=== PATIENT | female | born 1955 | race Hispanic/Latino ===

== ENCOUNTER 2018-05-02 13:57 | Inpatient (IN) | payer MEDICARE, BC ==
[2018-05-02 14:02] VITALS: BMI 19.8
[2018-05-02 14:56] LABS: ALB/GLOB RATIO 1.5 (1.1-1.8); ALBUMIN 4.2 g/dL (3.0-4.8); ALT/SGPT 24 U/L (7-56); AST/SGOT 27 U/L (14-36); BLOOD UREA NITROGEN 23 mg/dL (7-21); CALCIUM 9.4 mg/dL (8.4-10.5); GFR NON-AFRICAN AMERICAN > 60
[2018-05-02 14:57] LABS: ACETAMINOPHEN < 10.0 ug/ml (10.0-20.0); SALICYLATE < 1 mg/dL (2.0-20.0)
[2018-05-02 15:14] LABS: BASO # 0.04 K/mm3 (0.0-2.0); BASO % 0.6 % (0.0-3.0); EOS # 0.1 (0.0-0.7); EOS % 0.8 % (1.5-5.0); GRAN # 4.22 (1.4-6.5); GRAN % 65.9 % (50.0-68.0); HEMOGLOBIN 13.9 g/dL (12.0-16.0); LYMPH # 1.7 (1.2-3.4); LYMPH % 27.1 % (22.0-35.0); MEAN CELL VOLUME 89.6 fl (80.0-105.0); MEAN CORPUSCULAR HEMOGLOBIN 30.1 pg (25.0-35.0); MEAN CORPUSCULAR HGB CONC 33.6 g/dl (31.0-37.0); MEAN PLATELET VOLUME 9.1 fl (7.0-11.0); MONO # 0.4 (0.1-0.6); MONO % 5.6 % (1.0-6.0); RBC 4.62 10^6/uL (3.5-6.1); RED CELL DISTRIBUTION WIDTH 12.5 % (11.5-14.5); WHITE BLOOD COUNT 6.4 10^3/uL (4.5-11.0)
[2018-05-02 16:14] LABS: URINE BILIRUBIN NEGATIVE (NEGATIVE); URINE BLOOD TRACE-INTACT (NEGATIVE); URINE GLUCOSE (UA) NEGATIVE (NEGATIVE); URINE LEUKOCYTE ESTERASE NEGATIVE Leu/uL (NEGATIVE); URINE PROTEIN NEGATIVE mg/dL (<30 mg/dL); URINE UROBILINOGEN 0.2 E.U./dL (<1 E.U./dL)
[2018-05-02 16:15] LABS: URINE APPEARANCE SLIGHT-CLOUDY (CLEAR); URINE COLOR YELLOW (YELLOW)
[2018-05-02 16:31] LABS: BARBITURATES, UR NEGATIVE (NEGATIVE); BENZODIAZEPINES, UR NEGATIVE (NEGATIVE); OPIATES, UR NEGATIVE (NEGATIVE); PHENCYCLIDINE, UR NEGATIVE (NEGATIVE)
[2018-05-02 16:41] LABS: URINE AMORPHOUS SEDIMENT SMALL /hpf
[2018-05-02 17:11] VITALS: O2SAT 97
--- NOTE | 2018-05-02 18:05 | RAD ---
Date of service: 05/02/2018 HISTORY: psych eval COMPARISON: No prior. FINDINGS: LUNGS: Hyperinflated lungs. No active pulmonary disease. PLEURA: Flattened diaphragms. No significant pleural effusion identified, no pneumothorax apparent. CARDIOVASCULAR: Aortic atherosclerotic calcifications. Cardiomediastinal silhouette at the upper limits of normal in size. OSSEOUS STRUCTURES: Final degenerative changes. VISUALIZED UPPER ABDOMEN: Normal. OTHER FINDINGS: None. IMPRESSION: No active disease. COPD configuration.
--- NOTE | 2018-05-02 18:19 | ED PDOC ---
Arrival/HPI - General Chief Complaint: Psychiatric Evaluation Time Seen by Provider: 05/02/18 14:01 Historian: Patient - History of Present Illness Narrative History of Present Illness (Text): 05/02/18 18:17 A 63 year old female, whose past medical history includes depression, sent by a psychiatrist to the emergency department for evaluation of depression for 1-2 months. Patient states she is compliant with her medications. Patient denies any SI/HI, or any other physical/symptomatic complaints at this time. PMD: Dr. Franks Past Medical History - Provider Review Nursing Documentation Reviewed: Yes - Infectious Disease Hx of Infectious Diseases: None - Reproductive Menopause: Yes - Cardiac Hx Cardiac Disorders: No - Pulmonary Hx Respiratory Disorders: No - Psychiatric Hx Depression: Yes Hx Substance Use: No - Anesthesia Hx Anesthesia Reactions: No Family/Social History - Physician Review Nursing Documentation Reviewed: Yes Family/Social History: No Known Family HX Smoking Status: Unknown If Ever Smoked Hx Alcohol Use: No Hx Substance Use: No Allergies/Home Meds Allergies/Adverse Reactions: Allergies No Known Allergies Allergy (Verified 05/02/18 14:24) Home Medications: Home Meds Medication Instructions Recorded Confirmed PARoxetine CR [Paxil CR] 30 mg PO DAILY 05/02/18 05/02/18 Venlafaxine [Effexor-XR] 75 mg PO 05/02/18 clonazePAM [clonAZEPAM] 0.25 mg PO PRN PRN 05/02/18 05/02/18 Review of Systems - Physician Review All systems were reviewed & negative as marked: Yes - Review of Systems Constitutional: absent: Fevers Psychiatric: Depression. absent: Suicidal Ideation (and no homicidal ideation) Physical Exam Vital Signs Reviewed: Yes Vital Signs Temp Pulse Resp BP Pulse Ox 05/02/18 17:10 97.9 F 106 H 18 158/86 H 97 05/02/18 14:00 98.0 F 118 H 18 125/63 99 Temperature: Afebrile Blood Pressure: Normal Pulse: Tachycardic Respiratory Rate: Normal Appearance: Positive for: Well-Appearing, Non-Toxic, Comfortable Pain Distress: None Mental Status: Positive for: Alert and Oriented X 3 - Systems Exam Head: Present: Atraumatic, Normocephalic Pupils: Present: PERRL Extroacular Muscles: Present: EOMI Conjunctiva: Present: Normal Mouth: Present: Moist Mucous Membranes Neck: Present: Normal Range of Motion Respiratory/Chest: Present: Clear to Auscultation, Good Air Exchange. No: Respiratory Distress, Accessory Muscle Use Cardiovascular: Present: Normal S1, S2, Tachycardic. No: Murmurs Abdomen: No: Tenderness, Distention, Peritoneal Signs Back: Present: Normal Inspection Upper Extremity: Present: Normal Inspection. No: Cyanosis, Edema Lower Extremity: Present: Normal Inspection. No: Edema Neurological: Present: GCS=15, CN II-XII Intact, Speech Normal Skin: Present: Warm, Dry, Normal Color. No: Rashes Psychiatric: Present: Alert, Oriented x 3, Normal Insight, Normal Concentration Medical Decision Making ED Course and Treatment: 05/02/18 18:17 Impression: 63 year old female with depression. Plan: -- EKG -- Chest X-ray -- Labs -- Urinalysis -- Reassess and disposition Progress Notes: EKG: Ordered, reviewed, and independently interpreted the EKG. Rate : 106 BPM Rhythm : Sinus tachycardia. Interpretation : No ST-segment elevations or depressions, no T-wave inversions, normal intervals. Comparison : No previous EKG for comparison. 05/02/2018 18:02 Chest X-ray IMPRESSION: No active disease. COPD configuration. Dictator: Amador Smalls MD 05/02/18 18:18 Patient has been medically cleared and admitted under Dr. Viera. - Lab Interpretations Lab Results: Total Bilirubin 0.3 mg/dL (0.2-1.3) 05/02/18 14:30 AST 27 U/L (14-36) 05/02/18 14:30 ALT 24 U/L (7-56) 05/02/18 14:30 Alkaline Phosphatase 78 U/L (38-126) 05/02/18 14:30 Total Protein 7.1 g/dL (5.8-8.3) 05/02/18 14:30 Albumin 4.2 g/dL (3.0-4.8) 05/02/18 14:30 Globulin 2.9 gm/dL 05/02/18 14:30 Albumin/Globulin Ratio 1.5 (1.1-1.8) 05/02/18 14:30 Urine Color Yellow (YELLOW) 05/02/18 16:00 Urine Appearance Slight-cloudy (CLEAR) 05/02/18 16:00 Urine pH 6.0 (4.7-8.0) 05/02/18 16:00 Ur Specific [place] >= 1.030 (1.005-1.035) 05/02/18 16:00 Urine Protein Negative mg/dL (<30 mg/dL) 05/02/18 16:00 Urine Glucose (UA) Negative mg/dL (NEGATIVE) 05/02/18 16:00 Urine Ketones Negative mg/dL (NEGATIVE) 05/02/18 16:00 Urine Blood Trace-intact (NEGATIVE) H 05/02/18 16:00 Urine Nitrate Negative (NEGATIVE) 05/02/18 16:00 Urine Bilirubin Negative (NEGATIVE) 05/02/18 16:00 Urine Urobilinogen 0.2 E.U./dL (<1 E.U./dL) 05/02/18 16:00 Ur Leukocyte Esterase Negative Janette/uL (NEGATIVE) 05/02/18 16:00 Urine RBC 5 - 10 /hpf (0-2) H 05/02/18 16:00 Urine WBC 2 - 5 /hpf (0-6) 05/02/18 16:00 Ur Epithelial Cells 6 - 8 /hpf (0-5) H 05/02/18 16:00 Amorphous Sediment Small /hpf (NONE) 05/02/18 16:00 - Scribe Statement The provider has reviewed the documentation as recorded by the Brenda Baumann Provider Scribe Attestation: All medical record entries made by the Scribe were at my direction and personally dictated by me. I have reviewed the chart and agree that the record accurately reflects my personal performance of the history, physical exam, medical decision making, and the department course for this patient. I have also personally directed, reviewed, and agree with the discharge instructions and disposition. Disposition/Present on Arrival - Present on Arrival Any Indicators Present on Arrival: No History of DVT/PE: No History of Uncontrolled Diabetes: No Urinary Catheter: No History of Decub. Ulcer: No History Surgical Site Infection Following: None - Disposition Have Diagnosis and Disposition been Completed?: Yes Diagnosis: MDD (major depressive disorder) Disposition: HOSPITALIZED Disposition Time: 16:00 Condition: STABLE
[2018-05-02] MEDS ORDERED: Alum-Mag Hydrox-Simethicone Susp (30 mL) PO PRN (20:44)
[2018-05-02] MEDS ORDERED: Magnesium Hydroxide Susp 30 ml UD PO PRN (20:44)
--- NOTE | 2018-05-02 21:01 | PCM.BM ---
<Dominick Conn - Last Filed: 05/02/18 20:58> Treatment Plan Problems - Problems identified on initial assessmt suicide Date Initiated: 05/02/18 Time Initiated: 21:00 Assessment reference: NA Status: Active Ineffective coping Date Initiated: 05/02/18 Time Initiated: 21:00 Assessment reference: NA Status: Active Self care deficit Date Initiated: 05/02/18 Time Initiated: 21:00 Assessment reference: NA Status: Active Treatment assets and liabiliti Patient Assests: cooperative, educated, insightful, motivated, good support system, financial stabiity, cognitively intact Patient Liabilities: live alone - Milieu Protocol Maintain good personal hygiene: daily Encourage regular showers, daily Remind patient to perform daily oral care Maintain personal safety: daily Educate patient to report safety concerns to staff, daily Monitor environment for contraband/sharps Medication safety: Monitor for expected outcome, potential side effects: daily, Assess barriers to learning: daily, Assess readiness for medication education: daily Discharge/Continuing Care - Education Needs Education Needs: Patient Medication, Patient Diagnosis/Disease Process, Patient Coping Skills, Patient Activities of Daily Living, Patient Aftercare Safety Plan - Discharge Discharge Criteria: Free of Suicidal thoughts, Normal sleep pattern, Ability to care for self Discharge to:: Home <Marisol Viera - Last Filed: 05/03/18 12:50> - Diagnosis (1) MDD (major depressive disorder) Status: Acute Interventions: 05/03/18 12:50 Psychoeducation Psychopharmacology/adjustment of medications as needed/ monitoring possible side effects Evaluate pt on daily basis Compliance with medications and follow up appointments Suicide and homicide risk assessment and prevention Relapse prevention Reduction of symptoms Improve functional status Family involvement As outpatient: cognitive behavioral therapy Possible ECT <Kya Knight - Last Filed: 05/03/18 15:56>
--- NOTE | 2018-05-03 00:36 | CARD ---
APPROVED REPORT Date of service: 05/02/2018 EKG Measurement Heart [id number] <Conclusion> Sinus tachycardia Intraventricular conduction delay of LBBB type Cannot exclude Anterior infarct, age undetermined CCR Abnormal ECG
[2018-05-03 08:11] LABS: GLUCOSE,FASTING 117 mg/dL (65-110); HDL CHOLESTEROL 89 mg/dL (29-60)
[2018-05-03 08:21] LABS: LDL CHOLESTEROL 123 mg/dL (0-129)
--- NOTE | 2018-05-03 12:50 | PCM.PSYCH ---
Initial Psychiatric Evaluation - Initial Psychiatric Evaluation Type of Admission: Voluntary Legal Status: Capacity (Patient has capacity to sign consent for treatment) Chief Complaint (in patient's own words): "I have a lot of guilt, I have a lot of regrets about my mistakes, I spoke to my sister, she invited me to stay with her, she is the one who suggested me to come to the hospital and look for help, couple of nights ago I put a knife on my wrist but I didn't put pressure on it..., I am afraid to go to hell" Patient's Reaction to Hospitalization: Patient was admitted to the psychiatric inpatient unit for evaluation and stabilization of depressive symptoms, inability to function, no energy, patient was losing weight, patient had intrusive thoughts, patient also held a knife against her left wrist couple of nights ago. History of Present Illness and Precipitating Events: shortly pt is a 63 year old female, with a history of treatment resistant depression, anxiety, two previous psychiatric admissions 2018, currently under care of [facility] and sees at [facility], pt retired, lives alone, pt came to the hospital accompanied by her sister, as per ED report pt was referred for admission (as per pt for ECT treatment) by her psychiatrist, pt was admitted for evaluation and stabilization of depressive symptoms, inability to function, possible suicidal ideation, "I put a knife on my wrist but I didn't put pressure on it..., I am afraid to go to hell". As per ED report pt was compliant with medications and follow up appointments, pt requires further evaluation and stabilization and meds adjustment and possible ECT treatment. Patient was sent home today, patient presented with acceptable personal hygiene, seems to be careless about her appearance, has long, uncombed, gonzalez hair, no makeup on, wearing baggy gonzalez color clothing, was pleasant, not forthcoming with information, good ADLs. Patient reported that she suffers from depression and "a lot of guilt", patient reported that she has a lot of "regrets" in her life, patient reported that she was feeling more depressed, low energy, feeling guilty that she is not productive from her life, patient reported that she has anhedonia, patient reported that she tried her best to go to the gym and being productive but she was unsuccessful. Patient also reported that she has some "intrusive thoughts" patient reported that she constantly thinking about her mistakes in her life, patient reported that she retired in 2015 and she used to work as high school counselor patient reported that in 2018 she made a "bad choice" to move to [place] in order to help her alcoholic brother who was homeless at that time. Patient reported "my plan was to help him and I wanted to live together in order for him to start feeling better", patient reported that "plan did not work out, at present moment I am staying in an apartment what I do not like, my brother is in [employer], it was a huge mistake". Patient reported all the above gives her "ruminations and intrusive thoughts, I keep playing it in my head over and over again". Patient reported that she has fair appetite but she lost some weight and she is not sure. Patient reported that her sleep is "fine". Patient denied hearing voices, denied seeing things, denied paranoid ideation patient does not appear to be psychotic. Patient denied that she has any intent or plan to kill herself but when this loan underwriter asked about her statements in the emergency room about holding a knife against her left wrist patient reluctantly said that on SundayApril 28 she hold denied against her wrist but "I did not do anything, I am afraid that I will go to [facility], I am Mandaen, if this is a sin, I am afraid that I will be punished.", pt reported that she called her sister and she invited patient to stay with her for a couple of days, patient reported that her sister brought her to the hospital. In ED pt made statement "Patient believes that her medications are not working and that the suicidal thoughts are continuing." Patient denied using drugs, denied smoking cigarettes, denied alcohol consumption. Patient denied history of manic episodes, denies history of abuse. Past psychiatric history: Patient reported that she was on multiple psychotropic medications which were not not effective, patient reported that she was on Prozac, Paxil, Zoloft, Effexor, patient outpatient provider "suggested me to have ECT but I am not sure". Patient reported that she had 2 previous psychiatric admissions in 2018, one at [facility] and the other one at [facility], early spring last year initially patient was seen her psychiatrist every week, at present moment patient sees her psychiatrist every 2 weeks. Patient denied history of suicidal attempts. pt would like to be referred to a day treatment program. Patient reported that she feels her medications at [facility] here in [place], this loan underwriter called and confirmed medication list. [phone] pt was on the following medications paxil 20mg and 10mg prescrcib[address] by Dr.Savita Downey filled 04/06/19, pt said that she was on titration of that medication venlafaxine prescribed by filled 04/12/18, pt said that she was in the process of weaning off Medical history: Patient denied any medical history about patient cholesterol level is elevated as well as urine was positive for blood, will call for medical consultation. Family history: Patient reported that 2 of her brothers suffers from alcohol addiction, younger brother suffers from major depressive disorder and she is on Zoloft. Denies family history of suicidal attempts. collaterals from sister: Eloina Beebe Patient was referred to the hospital by the patient's psychiatrist. According to her sister, the patient is compliant with her medications and her outpatient treatment. As per RN report pt said that pt said that she was not able to take care of self. 05/02/18 14:30 05/02/18 14:30 Lab Results 05/03/18 07:45: Fasting Glucose 117 H, Triglycerides 75, Cholesterol 255 H, LDL Cholesterol Direct 123, HDL Cholesterol 89 H 05/02/18 19:00: TSH 3rd Generation 1.59 05/02/18 16:00: Urine Opiates Screen Negative, Urine Methadone Screen Negative, Ur Barbiturates Screen Negative, Ur Phencyclidine Scrn Negative, Ur Amphetamines Screen Negative, U Benzodiazepines Scrn Negative, U Oth Cocaine Metabols Negative, U Cannabinoids Screen Negative 05/02/18 16:00: Urine Color Yellow, Urine Appearance Slight-cloudy, Urine pH 6.0, Ur Specific [place] >= 1.030, Urine Protein Negative, Urine Glucose (UA) Negative, Urine Ketones Negative, Urine Blood Trace-intact H, Urine Nitrate Negative, Urine Bilirubin Negative, Urine Urobilinogen 0.2, Ur Leukocyte Esterase Negative, Urine RBC 5 - 10 H, Urine WBC 2 - 5, Ur Epithelial Cells 6 - 8 H, Amorphous Sediment Small 05/02/18 14:30: Alcohol, Quantitative < 10 05/02/18 14:30: Salicylates < 1 L, Acetaminophen < 10.0 L 05/02/18 14:30: Sodium 139, Potassium 4.0, Chloride 104, Carbon Dioxide 26, Anion Gap 12, BUN 23 H, Creatinine 0.7, Est GFR ( Amer) > 60, Est GFR (Non-Af Amer) > 60, Random Glucose 114 H, Calcium 9.4, Total Bilirubin 0.3, AST 27, ALT 24, Alkaline Phosphatase 78, Total Protein 7.1, Albumin 4.2, Globulin 2.9, Albumin/Globulin Ratio 1.5 05/02/18 14:30: WBC 6.4, RBC 4.62, Hgb 13.9, Hct 41.4, MCV 89.6, MCH 30.1, MCHC 33.6, RDW 12.5, Plt Count 308, MPV 9.1, Gran % 65.9, Lymph % (Auto) 27.1, Pratt % (Auto) 5.6, Eos % (Auto) 0.8 L, Baso % (Auto) 0.6, Gran # 4.22, Lymph # (Auto) 1.7, Pratt # (Auto) 0.4, Eos # (Auto) 0.1, Baso # (Auto) 0.04 Vital Signs Temp Pulse Pulse Resp BP Pulse Ox 05/03/18 07:27 98.7 F 88 20 123/65 05/02/18 22:06 127/71 05/02/18 21:34 90 18 05/02/18 17:10 97.9 F 106 H 18 158/86 H 97 05/02/18 14:00 98.0 F 118 H 18 125/63 99 The patient failed the outpatient lower level of care: Yes Current Medications: Active Medications Generic Name Dose Route Start Last Admin Trade Name Freq PRN Reason Stop Dose Admin Acetaminophen 650 mg 05/02/18 20:44 Tylenol 325mg Tab PO Q6H PRN Fever >100.4 F Al Hydrox/Mg Hydrox/Simethicone 30 ml 05/02/18 20:44 Maalox Plus 30 Ml PO DAILY PRN Upset Stomach Clonazepam 0.25 mg 05/02/18 20:45 Klonopin PO BID PRN Anxiety Protocol Magnesium Hydroxide 30 ml 05/02/18 20:44 Milk Of Magnesia PO DAILY PRN Constipation Paroxetine HCl 30 mg 05/03/18 08:00 Paxil PO DAILY MELODY Present on Admission - Present on Admission Any Indicators Present on Admission: No Review of Systems - Review of Systems Systems not reviewed;Unavailable: Acuity of Condition - Constitutional Constitutional: As Per HPI - EENT Eyes: As Per HPI Ears: As Per HPI Nose/Mouth/Throat: As Per HPI - Breasts Breasts: As Per HPI - Cardiovascular Cardiovascular: As Per HPI - Respiratory Respiratory: As Per HPI - Gastrointestinal Gastrointestinal: As Per HPI - Genitourinary Genitourinary: As Per HPI - Reproductive: Female Reproductive:Female: As Per HPI - Menstruation Menstruation: As Per HPI - Musculoskeletal Musculoskeletal: As Per HPI - Integumentary Integumentary: As Per HPI - Neurological Neurological: As Per HPI - Psychiatric Psychiatric: As Per HPI - Endocrine Endocrine: As Per HPI - Hematologic/Lymphatic Hematologic: As Per HPI Past Patient History - Past Psychiatric History Previous Treatment History: Inpatient Prior Professional Help: see HPI Prior Psychiatric Treatment: see HPI At what hospital: see HPI Duration: see HPI Nature of Treatment: see HPI Explanation of prior treatment: see HPI - PSYCHIATRIC Hx Depression: Yes Hx Substance Use: No - Infectious Disease Hx of Infectious Diseases: None - CARDIAC Hx Cardiac Disorders: No - PULMONARY Hx Respiratory Disorders: No - ANESTHESIA Hx Anesthesia Reactions: No - Medical/Surgical History Reviewed & confirmed: by ks Meds Allergies/Adverse Reactions: Allergies Allergy/AdvReac Type Severity Reaction Status Date / Time No Known Allergies Allergy Verified 05/02/18 14:24 Mental Status Examination - Personal Presentation Personal Presentation: Looks stated age - Affect Affect: Constricted, Flat - Motor Activity Motor Activity: Calm - Reliability in Providing Information Reliability in Providing Information: Fair - Speech Speech: Organized - Mood Mood: Depressed, Anxious - Obsessions/Compulsions Obsessions: None Compulsions: None - Cognitive Functions Orientation: Person, Place, Situation, Time Sensorium: Alert Attention/Concentration: Easily distracted Abstract Thinking: As evidence by literal perception of proverbs Estimate of Intelligence: Average Judgement: Intact, as evidence by: Insight regarding need for hospitalization - Risk Risk: Self-mutilation, Diminished functioning - Strength & Assets Inventory Strength & Assets Inventory: Intelligence, Family support, Spiritual affiliations, Cooperative, Other (good physical health, no psychosis) - Limitations Limitations: Other (pt was not forthcoming with info, lives alone) Psychiatric Physical Exam - Physical Exam Reviewed and confirmed: Emergency Department Physical Exam Results - Vital Signs Recent Vital Signs: Last Vital Signs Temp 98.7 F 05/03/18 07:27 Pulse 88 05/03/18 07:27 Resp 20 05/03/18 07:27 BP 123/65 05/03/18 07:27 Pulse Ox 97 05/02/18 17:10 - Labs Result Diagrams: 05/02/18 14:30 05/02/18 14:30 Labs: Laboratory Results - last 24 hr 05/02/18 05/02/18 05/02/18 14:30 14:30 14:30 WBC 6.4 RBC 4.62 Hgb 13.9 Hct 41.4 MCV 89.6 MCH 30.1 MCHC 33.6 RDW 12.5 Plt Count 308 MPV 9.1 Gran % 65.9 Lymph % (Auto) 27.1 Pratt % (Auto) 5.6 Eos % (Auto) 0.8 L Baso % (Auto) 0.6 Gran # 4.22 Lymph # (Auto) 1.7 Pratt # (Auto) 0.4 Eos # (Auto) 0.1 Baso # (Auto) 0.04 Sodium 139 Potassium 4.0 Chloride 104 Carbon Dioxide 26 Anion Gap 12 BUN 23 H Creatinine 0.7 Est GFR ( Amer) > 60 Est GFR (Non-Af Amer) > 60 Random Glucose 114 H Fasting Glucose Calcium 9.4 Total Bilirubin 0.3 AST 27 ALT 24 Alkaline Phosphatase 78 Total Protein 7.1 Albumin 4.2 Globulin 2.9 Albumin/Globulin Ratio 1.5 Triglycerides Cholesterol LDL Cholesterol Direct HDL Cholesterol TSH 3rd Generation Urine Color Urine Appearance Urine pH Ur Specific [place] Urine Protein Urine Glucose (UA) Urine Ketones Urine Blood Urine Nitrate Urine Bilirubin Urine Urobilinogen Ur Leukocyte Esterase Urine RBC Urine WBC Ur Epithelial Cells Amorphous Sediment Salicylates < 1 L Urine Opiates Screen Urine Methadone Screen Acetaminophen < 10.0 L Ur Barbiturates Screen Ur Phencyclidine Scrn Ur Amphetamines Screen U Benzodiazepines Scrn U Oth Cocaine Metabols U Cannabinoids Screen Alcohol, Quantitative 05/02/18 05/02/18 05/02/18 14:30 16:00 16:00 WBC RBC Hgb Hct MCV MCH MCHC RDW Plt Count MPV Gran % Lymph % (Auto) Pratt % (Auto) Eos % (Auto) Baso % (Auto) Gran # Lymph # (Auto) Pratt # (Auto) Eos # (Auto) Baso # (Auto) Sodium Potassium Chloride Carbon Dioxide Anion Gap BUN Creatinine Est GFR ( Amer) Est GFR (Non-Af Amer) Random Glucose Fasting Glucose Calcium Total Bilirubin AST ALT Alkaline Phosphatase Total Protein Albumin Globulin Albumin/Globulin Ratio Triglycerides Cholesterol LDL Cholesterol Direct HDL Cholesterol TSH 3rd Generation Urine Color Yellow Urine Appearance Slight-cloudy Urine pH 6.0 Ur Specific [place] >= 1.030 Urine Protein Negative Urine Glucose (UA) Negative Urine Ketones Negative Urine Blood Trace-intact H Urine Nitrate Negative Urine Bilirubin Negative Urine Urobilinogen 0.2 Ur Leukocyte Esterase Negative Urine RBC 5 - 10 H Urine WBC 2 - 5 Ur Epithelial Cells 6 - 8 H Amorphous Sediment Small Salicylates Urine Opiates Screen Negative Urine Methadone Screen Negative Acetaminophen Ur Barbiturates Screen Negative Ur Phencyclidine Scrn Negative Ur Amphetamines Screen Negative U Benzodiazepines Scrn Negative U Oth Cocaine Metabols Negative U Cannabinoids Screen Negative Alcohol, Quantitative < 10 05/02/18 05/03/18 19:00 07:45 WBC RBC Hgb Hct MCV MCH MCHC RDW Plt Count MPV Gran % Lymph % (Auto) Pratt % (Auto) Eos % (Auto) Baso % (Auto) Gran # Lymph # (Auto) Pratt # (Auto) Eos # (Auto) Baso # (Auto) Sodium Potassium Chloride Carbon Dioxide Anion Gap BUN Creatinine Est GFR ( Amer) Est GFR (Non-Af Amer) Random Glucose Fasting Glucose 117 H Calcium Total Bilirubin AST ALT Alkaline Phosphatase Total Protein Albumin Globulin Albumin/Globulin Ratio Triglycerides 75 Cholesterol 255 H LDL Cholesterol Direct 123 HDL Cholesterol 89 H TSH 3rd Generation 1.59 Urine Color Urine Appearance Urine pH Ur Specific [place] Urine Protein Urine Glucose (UA) Urine Ketones Urine Blood Urine Nitrate Urine Bilirubin Urine Urobilinogen Ur Leukocyte Esterase Urine RBC Urine WBC Ur Epithelial Cells Amorphous Sediment Salicylates Urine Opiates Screen Urine Methadone Screen Acetaminophen Ur Barbiturates Screen Ur Phencyclidine Scrn Ur Amphetamines Screen U Benzodiazepines Scrn U Oth Cocaine Metabols U Cannabinoids Screen Alcohol, Quantitative - EKG Data EKG Interpreted by: ER Physician DSM Plan - DSM 5 DSM 5 Diagnosis: MDD, treatment resistant - Recommended/Plan of Treatment Treatment Recommendations and Plan of Treatment: Milieu/structure/supportive therapy medical consult, consultation for discharge plan and social issues Med management: meds confirmed by [facility] klonopin 0.25mg po bid for anxiety paxil will be continued, but pt reported to have UE shakes effexor was on tapering dose, will d/c now ECT treatment discussed Family involvement Follow up on labs Will monitor closely Pt was educated about risk/benefits and alternatives of medications, coping strategies (safety plan, suicide prevention), relapse prevention, importance of follow up with psychiatrist and therapist, stay away from drugs/alcohol/smoking Projected ELOS: 7days Prognosis: guarded Discharge Plan and Discharge Criteria: Pt will be not depressed or manic, will be more hopeful, will be not psychotic or anxious, will be tolerating medications well, will not have major side effects, will be able to function, will not pose threat to self or others. - Tobacco Cessation Tobacco Use Status for the last 30 days: Non User Tobacco Use Treatment Practical Counseling Provided: No Tobacco Use Treatment FDA-Approved Cessation Medication Provided: No - Alcohol or Substance Abuse Does the patient have an Alcohol or Substance Abuse Disorder: No Initial Psych Certification - Initial Certification I certify that the inpatient psychiatric facility admission was medically necessary for either: Treatment which could reasonbly be expected to improve pt's condition, Diagnostic study I estimate of hospitalization is necessary for proper treatment of the patient: 7 Unit of Time: Days My plans for post-hospital care for this patient are: IOP or Day treatment program, if pt is willing ECT treatment
--- NOTE | 2018-05-03 14:45 | CP.PCM.CON ---
<Joanne Bianchi - Last Filed: 05/03/18 17:54> History of Present Illness - History of Present Illness History of Present Illness: Medicine Consult note for Dr. Buchanan Reason for consult: abnormal UA 63yo female PMHx depression presents with depression and suicidal ideations. Medicine consulted for management of abnormal UA. Patient stated she has had a UTI years ago and does not feel like she has one. She denied any dysura, hematuria, pyuria, change in odor, change in color. Patient denied any symptoms of fever, chills, headache, dizziness, chest pain, palpitations, SOB, cough, abd pain, nausea, vomiting, bowel complaints, pain/swelling in her legs bilaterally. She complained of being depressed and wanting to hurt herself but not having a plan. She denied any homicidal ideations and auditory/visual hallucinations. PMHx: depression PSurgHx: appendectomy Meds: pls see chart ALL: NKDA FamHx: noncontributory SocHx: denies tobacco, EtOH, drug use. Lives alone 12 point ROS reviewed and as per above Review of Systems - Review of Systems All systems: reviewed and no additional remarkable complaints except Review of Systems: as per HPI Past Patient History - Infectious Disease Hx of Infectious Diseases: None - Past Social History Smoking Status: Unknown If Ever Smoked - CARDIAC Hx Cardiac Disorders: No - PULMONARY Hx Respiratory Disorders: No - PSYCHIATRIC Hx Depression: Yes Hx Substance Use: No - ANESTHESIA Hx Anesthesia Reactions: No Meds Allergies/Adverse Reactions: Allergies Allergy/AdvReac Type Severity Reaction Status Date / Time No Known Allergies Allergy Verified 05/02/18 14:24 - Medications Medications: Current Medications Acetaminophen (Tylenol 325mg Tab) 650 mg PO Q6H PRN PRN Reason: Fever >100.4 F Al Hydrox/Mg Hydrox/Simethicone (Maalox Plus 30 Ml) 30 ml PO DAILY PRN PRN Reason: Upset Stomach Clonazepam (Klonopin) 0.25 mg PO BID PRN; Protocol PRN Reason: Anxiety Last Admin: 05/03/18 09:05 Dose: 0.25 mg Magnesium Hydroxide (Milk Of Magnesia) 30 ml PO DAILY PRN PRN Reason: Constipation Paroxetine HCl (Paxil) 30 mg PO DAILY MELODY Last Admin: 05/03/18 09:05 Dose: 30 mg Physical Exam - Constitutional Appears: Non-toxic, No Acute Distress - Head Exam Head Exam: ATRAUMATIC, NORMAL INSPECTION, NORMOCEPHALIC - Eye Exam Eye Exam: EOMI, Normal appearance, PERRL. absent: Conjunctival injection, Scler al icterus Pupil Exam: NORMAL ACCOMODATION - ENT Exam ENT Exam: Mucous Membranes Moist - Neck Exam Neck exam: Positive for: Full Rom, Normal Inspection. Negative for: Lymphadenopathy - Respiratory Exam Respiratory Exam: Clear to Auscultation Bilateral, NORMAL BREATHING PATTERN. absent: Accessory Muscle Use, Rales, Rhonchi, Wheezes, Respiratory Distress - Cardiovascular Exam Cardiovascular Exam: Tachycardia, REGULAR RHYTHM, +S1, +S2 - GI/Abdominal Exam GI & Abdominal Exam: Normal Bowel Sounds, Soft. absent: Firm, Guarding, Rigid, Tenderness - Extremities Exam Extremities exam: Positive for: normal capillary refill, normal inspection, pedal pulses present. Negative for: pedal edema - Neurological Exam Neurological exam: Alert, CN II-XII Intact, Oriented x3 - Psychiatric Exam Psychiatric exam: Anxious, Depressed - Skin Skin Exam: Dry, Intact, Normal Color, Warm Results - Vital Signs Recent Vital Signs: Last Vital Signs Temp 98.7 F 05/03/18 07:27 Pulse 88 05/03/18 07:27 Resp 20 05/03/18 07:27 BP 123/65 05/03/18 07:27 Pulse Ox 97 05/02/18 17:10 - Labs Result Diagrams: 05/02/18 14:30 05/02/18 14:30 Labs: Laboratory Results - last 24 hr 05/02/18 05/02/18 05/02/18 14:30 14:30 14:30 WBC 6.4 RBC 4.62 Hgb 13.9 Hct 41.4 MCV 89.6 MCH 30.1 MCHC 33.6 RDW 12.5 Plt Count 308 MPV 9.1 Gran % 65.9 Lymph % (Auto) 27.1 Day % (Auto) 5.6 Eos % (Auto) 0.8 L Baso % (Auto) 0.6 Gran # 4.22 Lymph # (Auto) 1.7 Day # (Auto) 0.4 Eos # (Auto) 0.1 Baso # (Auto) 0.04 Sodium 139 Potassium 4.0 Chloride 104 Carbon Dioxide 26 Anion Gap 12 BUN 23 H Creatinine 0.7 Est GFR ( Amer) > 60 Est GFR (Non-Af Amer) > 60 Random Glucose 114 H Fasting Glucose Calcium 9.4 Total Bilirubin 0.3 AST 27 ALT 24 Alkaline Phosphatase 78 Total Protein 7.1 Albumin 4.2 Globulin 2.9 Albumin/Globulin Ratio 1.5 Triglycerides Cholesterol LDL Cholesterol Direct HDL Cholesterol TSH 3rd Generation Urine Color Urine Appearance Urine pH Ur Specific [place] Urine Protein Urine Glucose (UA) Urine Ketones Urine Blood Urine Nitrate Urine Bilirubin Urine Urobilinogen Ur Leukocyte Esterase Urine RBC Urine WBC Ur Epithelial Cells Amorphous Sediment Salicylates < 1 L Urine Opiates Screen Urine Methadone Screen Acetaminophen < 10.0 L Ur Barbiturates Screen Ur Phencyclidine Scrn Ur Amphetamines Screen U Benzodiazepines Scrn U Oth Cocaine Metabols U Cannabinoids Screen Alcohol, Quantitative 05/02/18 05/02/18 05/02/18 14:30 16:00 16:00 WBC RBC Hgb Hct MCV MCH MCHC RDW Plt Count MPV Gran % Lymph % (Auto) Day % (Auto) Eos % (Auto) Baso % (Auto) Gran # Lymph # (Auto) Day # (Auto) Eos # (Auto) Baso # (Auto) Sodium Potassium Chloride Carbon Dioxide Anion Gap BUN Creatinine Est GFR ( Amer) Est GFR (Non-Af Amer) Random Glucose Fasting Glucose Calcium Total Bilirubin AST ALT Alkaline Phosphatase Total Protein Albumin Globulin Albumin/Globulin Ratio Triglycerides Cholesterol LDL Cholesterol Direct HDL Cholesterol TSH 3rd Generation Urine Color Yellow Urine Appearance Slight-cloudy Urine pH 6.0 Ur Specific [place] >= 1.030 Urine Protein Negative Urine Glucose (UA) Negative Urine Ketones Negative Urine Blood Trace-intact H Urine Nitrate Negative Urine Bilirubin Negative Urine Urobilinogen 0.2 Ur Leukocyte Esterase Negative Urine RBC 5 - 10 H Urine WBC 2 - 5 Ur Epithelial Cells 6 - 8 H Amorphous Sediment Small Salicylates Urine Opiates Screen Negative Urine Methadone Screen Negative Acetaminophen Ur Barbiturates Screen Negative Ur Phencyclidine Scrn Negative Ur Amphetamines Screen Negative U Benzodiazepines Scrn Negative U Oth Cocaine Metabols Negative U Cannabinoids Screen Negative Alcohol, Quantitative < 10 05/02/18 05/03/18 19:00 07:45 WBC RBC Hgb Hct MCV MCH MCHC RDW Plt Count MPV Gran % Lymph % (Auto) Day % (Auto) Eos % (Auto) Baso % (Auto) Gran # Lymph # (Auto) Day # (Auto) Eos # (Auto) Baso # (Auto) Sodium Potassium Chloride Carbon Dioxide Anion Gap BUN Creatinine Est GFR ( Amer) Est GFR (Non-Af Amer) Random Glucose Fasting Glucose 117 H Calcium Total Bilirubin AST ALT Alkaline Phosphatase Total Protein Albumin Globulin Albumin/Globulin Ratio Triglycerides 75 Cholesterol 255 H LDL Cholesterol Direct 123 HDL Cholesterol 89 H TSH 3rd Generation 1.59 Urine Color Urine Appearance Urine pH Ur Specific [place] Urine Protein Urine Glucose (UA) Urine Ketones Urine Blood Urine Nitrate Urine Bilirubin Urine Urobilinogen Ur Leukocyte Esterase Urine RBC Urine WBC Ur Epithelial Cells Amorphous Sediment Salicylates Urine Opiates Screen Urine Methadone Screen Acetaminophen Ur Barbiturates Screen Ur Phencyclidine Scrn Ur Amphetamines Screen U Benzodiazepines Scrn U Oth Cocaine Metabols U Cannabinoids Screen Alcohol, Quantitative Assessment & Plan - Assessment and Plan (Free Text) Assessment: 1. Abnormal u/a 2. Elevated cholesterol 3. Major Depressive Disorder Plan: Patient seen and examined on psych floor. Patient asymptomatic and UA is low suspicion for UTI. f/u urine c&s. Patient's cholesterol is elevated on FLP. Recommend management with healthy diet and exercise at this time. Will nutrition counselor patient thoroughly. Continue management for MDD as per psych. Medicine will continue to follow. Will discuss with Dr. Dewayne Bianchi PGY3 <Merritt Buchanan S - Last Filed: 05/04/18 20:21> Meds - Medications Medications: Current Medications Acetaminophen (Tylenol 325mg Tab) 650 mg PO Q6H PRN PRN Reason: Fever >100.4 F Al Hydrox/Mg Hydrox/Simethicone (Maalox Plus 30 Ml) 30 ml PO DAILY PRN PRN Reason: Upset Stomach Clonazepam (Klonopin) 0.25 mg PO BID MELODY; Protocol Last Admin: 05/04/18 15:05 Dose: 0.25 mg Fluoxetine HCl (Prozac) 30 mg PO DAILY MELODY Magnesium Hydroxide (Milk Of Magnesia) 30 ml PO DAILY PRN PRN Reason: Constipation Zaleplon (Sonata) 5 mg PO HS PRN PRN Reason: Insomnia Last Admin: 05/03/18 23:19 Dose: 5 mg Results - Vital Signs Recent Vital Signs: Last Vital Signs Temp 97.9 F 05/04/18 07:00 Pulse 100 H 05/04/18 07:00 Resp 19 05/04/18 07:00 BP 143/76 05/04/18 07:00 Pulse Ox 97 05/02/18 17:10 - Labs Result Diagrams: 05/02/18 14:30 05/02/18 14:30 Assessment & Plan - Assessment and Plan (Free Text) Plan: Pt seen and examined by me. I have reviewed the note of the medical instructor and I agree with it. I have discussed the assessment and plan with the resident. I have reviewed the medications and the last labs. Pt with no dysuria. She has depression that is the reason she was admitted to the hospital. Will get UCx. Unlikely to be positive as pt is not symptomatic
--- NOTE | 2018-05-04 08:42 | CP.PCM.PN ---
<Joanne Bianchi - Last Filed: 05/04/18 09:46> Subjective - Date & Time of Evaluation Date of Evaluation: 05/04/18 Time of Evaluation: 07:00 - Subjective Subjective: Pgy3 Medicine progress note for Dr. Buchanan Patient seen and examined at bedside. Nursing reports no acute events overnight. Patient resting comfortably and endorsed no acute complaints of fever, chills, headache, dizziness, chest pain, palpitations, SOB, cough, abd pain, nausea, vomiting, bowel/bladder complaints, pain/swelling in her legs bilaterally. She reported she slept well and has a good appetite. Objective - Vital Signs/Intake and Output Vital Signs (last 24 hours): Temp Pulse Resp BP Pulse Ox 97.9 F 100 H 19 143/76 97 05/04/18 07:00 05/04/18 07:00 05/04/18 07:00 05/04/18 07:00 05/02/18 17:10 - Medications Medications: Current Medications Acetaminophen (Tylenol 325mg Tab) 650 mg PO Q6H PRN PRN Reason: Fever >100.4 F Al Hydrox/Mg Hydrox/Simethicone (Maalox Plus 30 Ml) 30 ml PO DAILY PRN PRN Reason: Upset Stomach Clonazepam (Klonopin) 0.25 mg PO BID PRN; Protocol PRN Reason: Anxiety Last Admin: 05/03/18 09:05 Dose: 0.25 mg Fluoxetine HCl (Prozac) 10 mg PO DAILY MELODY Magnesium Hydroxide (Milk Of Magnesia) 30 ml PO DAILY PRN PRN Reason: Constipation Paroxetine HCl (Paxil) 20 mg PO HS MELODY Last Admin: 05/03/18 23:19 Dose: 20 mg Zaleplon (Sonata) 5 mg PO HS PRN PRN Reason: Insomnia Last Admin: 05/03/18 23:19 Dose: 5 mg - Labs Labs: 05/02/18 14:30 05/02/18 14:30 - Additional Findings Additional findings: - Constitutional Appears: Non-toxic, No Acute Distress - Head Exam Head Exam: ATRAUMATIC, NORMAL INSPECTION, NORMOCEPHALIC - Eye Exam Eye Exam: EOMI, Normal appearance, PERRL. absent: Conjunctival injection, Scleral icterus Pupil Exam: NORMAL ACCOMODATION - ENT Exam ENT Exam: Mucous Membranes Moist - Neck Exam Neck exam: Positive for: Full Rom, Normal Inspection. Negative for: Lymphadenop athy - Respiratory Exam Respiratory Exam: Clear to Auscultation Bilateral, NORMAL BREATHING PATTERN. absent: Accessory Muscle Use, Rales, Rhonchi, Wheezes, Respiratory Distress - Cardiovascular Exam Cardiovascular Exam: Tachycardia, REGULAR RHYTHM, +S1, +S2 - GI/Abdominal Exam GI & Abdominal Exam: Normal Bowel Sounds, Soft. absent: Firm, Guarding, Rigid, Tenderness - Extremities Exam Extremities exam: Positive for: normal capillary refill, normal inspection, pedal pulses present. Negative for: pedal edema - Neurological Exam Neurological exam: Alert, CN II-XII Intact, Oriented x3 - Psychiatric Exam Psychiatric exam: Anxious - Skin Skin Exam: Dry, Intact, Normal Color, Warm Assessment and Plan - Assessment and Plan (Free Text) Assessment: 1. Abnormal u/a- r/o asymptomatic UTI 2. Elevated cholesterol 3. Major Depressive Disorder Plan: Patient seen and examined on psych floor. Patient continues to be asymptomatic for UTI. Pending urine culture- will f/u. Patient's cholesterol is elevated on FLP. Counseled thoroughly on management with healthy diet and exercise at this time. Continue management for MDD as per psych. Will continue to monitor at this time. Discussed with Dr. Dewayne Bianchi PGY3 <Merritt Buchanan S - Last Filed: 05/04/18 20:18> Objective - Vital Signs/Intake and Output Vital Signs (last 24 hours): Temp Pulse Resp BP Pulse Ox 97.9 F 100 H 19 143/76 97 05/04/18 07:00 05/04/18 07:00 05/04/18 07:00 05/04/18 07:00 05/02/18 17:10 - Medications Medications: Current Medications Acetaminophen (Tylenol 325mg Tab) 650 mg PO Q6H PRN PRN Reason: Fever >100.4 F Al Hydrox/Mg Hydrox/Simethicone (Maalox Plus 30 Ml) 30 ml PO DAILY PRN PRN Reason: Upset Stomach Clonazepam (Klonopin) 0.25 mg PO BID MELODY; Protocol Last Admin: 05/04/18 15:05 Dose: 0.25 mg Fluoxetine HCl (Prozac) 30 mg PO DAILY MELODY Magnesium Hydroxide (Milk Of Magnesia) 30 ml PO DAILY PRN PRN Reason: Constipation Zaleplon (Sonata) 5 mg PO HS PRN PRN Reason: Insomnia Last Admin: 05/03/18 23:19 Dose: 5 mg - Labs Labs: 05/02/18 14:30 05/02/18 14:30 Assessment and Plan - Assessment and Plan (Free Text) Plan: Pt seen and examined by me. I have reviewed the note of the medical administrative technician and I agree with it. I have discussed the assessment and plan with the resident. I have reviewed the medications and the last labs. Pt with depression and feeling better Eating well. No pain. UCx pending.
--- NOTE | 2018-05-04 15:07 | PCM.PYCHPN ---
Psychiatric Progress Note - Psychiatric Progress Note Patient seen today, length of contact: 30 minutes Patient Chief Complaint: "I do want to be here anymore, it was a mistake that I signed myself into the hospital, I feel more anxious, I need to go back home" Problems Identified/Issues Discussed: Risk/benefits and alternatives of medications discussed, suicide/ homicide prevention, past psychiatric h/o, current psychiatric symptoms, medical problems, risk/benefits and alternatives of medications, medications compliance, coping strategies, substance abuse h/o, relapse prevention, importance of follow up with psychiatrist and therapist, discharge plan. Medical Problems: Upper extremity tremor A symptomatic urinary tract infection Dyslipidemia Please see medical team notes for more detailed information Diagnostic Results: 05/02/18 14:30 05/02/18 14:30 Lab Results 05/03/18 07:45: RPR Nonreactive 05/03/18 07:45: Fasting Glucose 117 H, Triglycerides 75, Cholesterol 255 H, LDL Cholesterol Direct 123, HDL Cholesterol 89 H 05/02/18 19:00: TSH 3rd Generation 1.59 05/02/18 16:00: Urine Opiates Screen Negative, Urine Methadone Screen Negative, Ur Barbiturates Screen Negative, Ur Phencyclidine Scrn Negative, Ur Amphetamines Screen Negative, U Benzodiazepines Scrn Negative, U Oth Cocaine Metabols Negative, U Cannabinoids Screen Negative 05/02/18 16:00: Urine Color Yellow, Urine Appearance Slight-cloudy, Urine pH 6.0, Ur Specific [place] >= 1.030, Urine Protein Negative, Urine Glucose (UA) Negative, Urine Ketones Negative, Urine Blood Trace-intact H, Urine Nitrate Negative, Urine Bilirubin Negative, Urine Urobilinogen 0.2, Ur Leukocyte Esterase Negative, Urine RBC 5 - 10 H, Urine WBC 2 - 5, Ur Epithelial Cells 6 - 8 H, Amorphous Sediment Small 05/02/18 14:30: Alcohol, Quantitative < 10 05/02/18 14:30: Salicylates < 1 L, Acetaminophen < 10.0 L 05/02/18 14:30: Sodium 139, Potassium 4.0, Chloride 104, Carbon Dioxide 26, A nion Gap 12, BUN 23 H, Creatinine 0.7, Est GFR ( Amer) > 60, Est GFR (Non-Af Amer) > 60, Random Glucose 114 H, Calcium 9.4, Total Bilirubin 0.3, AST 27, ALT 24, Alkaline Phosphatase 78, Total Protein 7.1, Albumin 4.2, Globulin 2.9, Albumin/Globulin Ratio 1.5 05/02/18 14:30: WBC 6.4, RBC 4.62, Hgb 13.9, Hct 41.4, MCV 89.6, MCH 30.1, MCHC 33.6, RDW 12.5, Plt Count 308, MPV 9.1, Gran % 65.9, Lymph % (Auto) 27.1, [place] % (Auto) 5.6, Eos % (Auto) 0.8 L, Baso % (Auto) 0.6, Gran # 4.22, Lymph # (Auto) 1.7, [place] # (Auto) 0.4, Eos # (Auto) 0.1, Baso # (Auto) 0.04 Vital Signs Temp Pulse Pulse Resp BP Pulse Ox 05/04/18 07:00 97.9 F 100 H 19 143/76 05/03/18 07:27 98.7 F 88 20 123/65 05/02/18 22:06 127/71 05/02/18 21:34 90 18 05/02/18 17:10 97.9 F 106 H 18 158/86 H 97 05/02/18 14:00 98.0 F 118 H 18 125/63 99 DSM 5 Symptoms Update: shortly pt is a 63 year old female, with a history of treatment resistant depression, anxiety, two previous psychiatric admissions 2018, currently under care of [facility] and sees at [facility], pt retired, lives alone, pt came to the hospital accompanied by her sister, as per ED report pt was referred for admission (as per pt for ECT treatment) by her psychiatrist, pt was admitted for evaluation and stabilization of depressive symptoms, inability to function, possible suicidal ideation, "I put a knife on my wrist but I didn't put pressure on it..., I am afraid to go to hell". As per ED report pt was compliant with medications and follow up appointments, pt requires further evaluation and stabilization and meds adjustment and possible ECT treatment. Correction to my previous note patient was seen today, not "patient was sent home today". Patient was seen today at the dining area with mental health worker. Patient presented to be dissatisfied, patient wants to be discharged, at the same time refused to sign 38-hour notice. Patient reported that she still has "ruminating thoughts, I am feeling more anxious, I am asking myself why he sign myself in to the hospital?". Patient still appears to be depressed and anxious, but trying her best to present less depressed. This sheet writer is in the process of adjustment of all of her medications, Paxil will be discontinued due to upper extremity tremor, Prozac was increased. Effexor was discontinued. Prior to come to the hospital patient was holding a knife against her left wrist, from this sheet writer observation patient still requires further utilization and observation and medications adjustment. As per staff patient is visible in the unit, no agitation, no aggression, patient is compliant with her medications. So far patient tolerates medications well, no side effects observed or reported, aims 0, no EPS, upper extremity tremor is slowly improving. Impression: Rule out major depressive disorder Rule out obsessive compulsive disorder Rule out generalized anxiety disorder Medication Change: Yes (Paxil discontinued, Prozac started) Medical Record Reviewed: Yes Consults ordered or reviewed: Medical consult appreciated, please see notes for more detailed information. Mental Status Examination - Cognitive Function Orientation: Person, Place, Situation, Time Memory: Intact Attention: Poor Concentration: Poor Association: WNL Fund of Knowledge: WNL - Mood Mood: Depressed (I am more depressed and I am more anxious, I do not want to be here"), Anxious - Affect Affect: Constricted, Flat - Speech Speech: Appropriate - Formal Thought Process Formal Thought Process: No Impairment - Suicidal Ideation Suicidal Ideation: No Plan: Patient adamantly denied thoughts of harming himself or others - Homicidal Ideation Homicidal Ideation: No Goal/Treatment Plan - Goal/Treatment Plan Need for Continued Stay: Remain at risks for inpatient hospitalization, Severe depression anxiety, Discharge may exacerbated symptoms, Severe functional impairment Progress Toward Problem(s) and Goals/Treatment Plan: Milieu/structure/supportive therapy medical consult, consultation for discharge plan and social issues Med management: meds confirmed by [facility] pharmacy klonopin 0.25mg po bid for anxiety paxil was discontinued effexor was on tapering dose, will d/c now Prozac was started, increase dose to 30 mg today for depression and anxiety ECT treatment discussed, patient does not want to have ECT treatment Family involvement Follow up on labs Will monitor closely Pt was educated about risk/benefits and alternatives of medications, coping strategies (safety plan, suicide prevention), relapse prevention, importance of follow up with psychiatrist and therapist, stay away from drugs/alcohol/smoking Estimated Date of D/C: 05/01/18
[2018-05-05 07:20] VITALS: RESP 20
--- NOTE | 2018-05-05 12:56 | PCM.PYCHPN ---
Psychiatric Progress Note - Psychiatric Progress Note Patient seen today, length of contact: 30 minutes Patient Chief Complaint: "I think I am doing better, I have some plans for the future, I need to find a new apartment, meanwhile will be followed up with my outpatient psychiatrist at [facility]" Problems Identified/Issues Discussed: Risk/benefits and alternatives of medications discussed, suicide/ homicide prevention, past psychiatric h/o, current psychiatric symptoms, medical problems, risk/benefits and alternatives of medications, medications compliance, coping strategies, substance abuse h/o, relapse prevention, importance of follow up with psychiatrist and therapist, discharge plan. Medical Problems: Upper extremity tremor A symptomatic urinary tract infection Dyslipidemia Please see medical team notes for more detailed information Diagnostic Results: 05/02/18 14:30 05/02/18 14:30 Lab Results 05/03/18 07:45: RPR Nonreactive 05/03/18 07:45: Fasting Glucose 117 H, Triglycerides 75, Cholesterol 255 H, LDL Cholesterol Direct 123, HDL Cholesterol 89 H 05/02/18 19:00: TSH 3rd Generation 1.59 05/02/18 16:00: Urine Opiates Screen Negative, Urine Methadone Screen Negative, Ur Barbiturates Screen Negative, Ur Phencyclidine Scrn Negative, Ur Amphetamines Screen Negative, U Benzodiazepines Scrn Negative, U Oth Cocaine Metabols Negative, U Cannabinoids Screen Negative 05/02/18 16:00: Urine Color Yellow, Urine Appearance Slight-cloudy, Urine pH 6 .0, Ur Specific Sherman >= 1.030, Urine Protein Negative, Urine Glucose (UA) Negative, Urine Ketones Negative, Urine Blood Trace-intact H, Urine Nitrate Negative, Urine Bilirubin Negative, Urine Urobilinogen 0.2, Ur Leukocyte Esterase Negative, Urine RBC 5 - 10 H, Urine WBC 2 - 5, Ur Epithelial Cells 6 - 8 H, Amorphous Sediment Small 05/02/18 14:30: Alcohol, Quantitative < 10 05/02/18 14:30: Salicylates < 1 L, Acetaminophen < 10.0 L 05/02/18 14:30: Sodium 139, Potassium 4.0, Chloride 104, Carbon Dioxide 26, Anion Gap 12, BUN 23 H, Creatinine 0.7, Est GFR ( Amer) > 60, Est GFR (Non-Af Amer) > 60, Random Glucose 114 H, Calcium 9.4, Total Bilirubin 0.3, AST 27, ALT 24, Alkaline Phosphatase 78, Total Protein 7.1, Albumin 4.2, Globulin 2.9, Albumin/Globulin Ratio 1.5 05/02/18 14:30: WBC 6.4, RBC 4.62, Hgb 13.9, Hct 41.4, MCV 89.6, MCH 30.1, MCHC 33.6, RDW 12.5, Plt Count 308, MPV 9.1, Gran % 65.9, Lymph % (Auto) 27.1, [place] % (Auto) 5.6, Eos % (Auto) 0.8 L, Baso % (Auto) 0.6, Gran # 4.22, Lymph # (Auto) 1.7, [place] # (Auto) 0.4, Eos # (Auto) 0.1, Baso # (Auto) 0.04 Vital Signs Temp Pulse Pulse Resp BP Pulse Ox 05/04/18 07:00 97.9 F 100 H 19 143/76 05/03/18 07:27 98.7 F 88 20 123/65 05/02/18 22:06 127/71 05/02/18 21:34 90 18 05/02/18 17:10 97.9 F 106 H 18 158/86 H 97 05/02/18 14:00 98.0 F 118 H 18 125/63 99 DSM 5 Symptoms Update: shortly pt is a 63 year old female, with a history of treatment resistant depression, anxiety, two previous psychiatric admissions 2018, currently under care of [facility] and sees at [facility], pt retired, lives alone, pt came to the hospital accompanied by her sister, as per ED report pt was referred for admission (as per pt for ECT treatment) by her psychiatrist, pt was admitted for evaluation and stabilization of depressive symptoms, inability to function, possible suicidal ideation, "I put a knife on my wrist but I didn't put pressure on it..., I am afraid to go to hell". As per ED report pt was compliant with medications and follow up appointments, pt requires further evaluation and stabilization and meds adjustment and possible ECT treatment. Patient was seen today at the treatment team meeting room, patient presented with acceptable personal hygiene, affect was more reactive, patient presented with some improvement of her symptoms, upper extremity tremor is getting better, patient reported that she tolerates Prozac well, patient denied any withdrawal symptoms from Effexor/Paxil. Patient denied thoughts of harming himself or others denied intent or plan, patient is not ready is not "ready for ECT, if Prozac will be not working, I will consider ECT treatment". As per staff patient is visible in the unit, no agitation, no aggression, patient is compliant with her medications. So far patient tolerates medications well, no side effects observed or reported, aims 0, no EPS, upper extremity tremor is slowly improving. Impression: Rule out major depressive disorder Rule out obsessive compulsive disorder Rule out generalized anxiety disorder Medication Change: Yes (Prozac increased, Paxil discontinued) Medical Record Reviewed: Yes Mental Status Examination - Cognitive Function Orientation: Person, Place, Situation, Time Memory: Intact Attention: Poor (Somewhat better) Concentration: Poor (Better) Association: WNL Fund of Knowledge: WNL - Mood Mood: Depressed ("I feel better, I want to go home"), Anxious ("My anxiety is better controlled") - Affect Affect: Constricted (But more reactive, mood congruent) - Speech Speech: Appropriate - Formal Thought Process Formal Thought Process: No Impairment - Suicidal Ideation Suicidal Ideation: No - Homicidal Ideation Homicidal Ideation: No Goal/Treatment Plan - Goal/Treatment Plan Need for Continued Stay: Remain at risks for inpatient hospitalization, Severe depression anxiety, Discharge may exacerbated symptoms, Severe functional impairment Progress Toward Problem(s) and Goals/Treatment Plan: Milieu/structure/supportive therapy medical consult, consultation for discharge plan and social issues Med management: meds confirmed by [facility] pharmacy klonopin 0.25mg po bid for anxiety paxil was discontinued effexor was on tapering dose, will d/c now Prozac was started, increase dose to 40 mg today for depression and anxiety ECT treatment discussed, patient does not want to have ECT treatment Family involvement Follow up on labs Will monitor closely Pt was educated about risk/benefits and alternatives of medications, coping strategies (safety plan, suicide prevention), relapse prevention, importance of follow up with psychiatrist and therapist, stay away from drugs/alcohol/smoking Estimated Date of D/C: 05/06/18
--- NOTE | 2018-05-06 05:40 | CP.PCM.PN ---
<Joanne Bianchi - Last Filed: 05/06/18 09:59> Subjective - Date & Time of Evaluation Date of Evaluation: 05/06/18 Time of Evaluation: 06:45 - Subjective Subjective: Pgy3 Medicine progress note for Dr. Buchanan Patient seen and examined at bedside. As per nursing no acute events overnight. Patient was comfortable this AM and denied any fever, chills, headache, dizziness, chest pain, palpitations, SOB, cough, abd pain, nausea, vomiting, bowel/bladder complaints, pain/swelling in legs b/l. Patient is eating well and eager to go home. Objective - Vital Signs/Intake and Output Vital Signs (last 24 hours): Temp Pulse Resp BP Pulse Ox 97.8 F 78 20 127/59 L 97 05/05/18 07:18 05/05/18 07:18 05/05/18 07:18 05/05/18 07:18 05/02/18 17:10 - Medications Medications: Current Medications Acetaminophen (Tylenol 325mg Tab) 650 mg PO Q6H PRN PRN Reason: Fever >100.4 F Al Hydrox/Mg Hydrox/Simethicone (Maalox Plus 30 Ml) 30 ml PO DAILY PRN PRN Reason: Upset Stomach Clonazepam (Klonopin) 0.25 mg PO BID MELODY; Protocol Last Admin: 05/05/18 16:21 Dose: 0.25 mg Fluoxetine HCl (Prozac) 40 mg PO DAILY MELODY Magnesium Hydroxide (Milk Of Magnesia) 30 ml PO DAILY PRN PRN Reason: Constipation Zaleplon (Sonata) 5 mg PO HS PRN PRN Reason: Insomnia Last Admin: 05/03/18 23:19 Dose: 5 mg - Labs Labs: 05/02/18 14:30 05/02/18 14:30 - Additional Findings Additional findings: - Constitutional Appears: Non-toxic, No Acute Distress - Head Exam Head Exam: ATRAUMATIC, NORMAL INSPECTION, NORMOCEPHALIC - Eye Exam Eye Exam: EOMI, Normal appearance, PERRL. absent: Conjunctival injection, Scleral icterus Pupil Exam: NORMAL ACCOMODATION - ENT Exam ENT Exam: Mucous Membranes Moist - Neck Exam Neck exam: Positive for: Full Rom, Normal Inspection. Negative for: Lymphadenopathy - Respiratory Exam Respiratory Exam: Clear to Auscultation Bilateral, NORMAL BREATHING PATTERN. absent: Accessory Muscle Use, Rales, Rhonchi, Wheezes, Respiratory Distress - Cardiovascular Exam Cardiovascular Exam: Tachycardia, REGULAR RHYTHM, +S1, +S2 - GI/Abdominal Exam GI & Abdominal Exam: Normal Bowel Sounds, Soft. absent: Firm, Guarding, Rigid, Tenderness - Extremities Exam Extremities exam: Positive for: normal capillary refill, normal inspection, pedal pulses present. Negative for: pedal edema - Neurological Exam Neurological exam: Alert, CN II-XII Intact, Oriented x3 - Psychiatric Exam Psychiatric exam: Anxious - Skin Skin Exam: Dry, Intact, Normal Color, Warm Assessment and Plan - Assessment and Plan (Free Text) Assessment: 1. Asymptomatic UTI 2. Elevated cholesterol 3. Major Depressive Disorder Plan: Patient's vitals and blood work reviewed. Urine culture +Gram positive cocci. No need for abx at this time. Patient has no urinary complaints or discomfort. Patient's cholesterol is elevated on FLP. Counseled thoroughly on management with healthy diet and exercise at this time. Continue management for MDD as per psych. Upon discharge recommend patient to follow up with PMD within 7-[address] Dewayne Bianchi PGY3 <Merritt Buchanan S - Last Filed: 05/06/18 17:17> Objective - Vital Signs/Intake and Output Vital Signs (last 24 hours): Temp Pulse Resp BP Pulse Ox 97.9 F 88 20 104/63 97 05/06/18 07:30 05/06/18 07:30 05/06/18 07:30 05/06/18 07:30 05/02/18 17:10 - Labs Labs: 05/02/18 14:30 05/02/18 14:30 Assessment and Plan - Assessment and Plan (Free Text) Plan: Pt seen and examined by me. I have reviewed the note of the ophthalmic medical assistant and I agree with it. I have discussed the assessment and plan with the resident. I have reviewed the medications and the last labs. Pt with no symptoms of UTI. She has a UCx that is less than 100,000 so unlikely needing treatment. Pt has depression that is improving. She will be discharged home today.
[2018-05-06 07:31] VITALS: BP 104/63; PULSE 88; TEMP 97.9
--- NOTE | 2018-05-06 14:49 | PCM.PYCHDC ---
Mental Status Examination - Mental Status Examination Orientation: Person, Place, Situation, Time Memory: Intact Mood: Neutral Affect: Constricted (But more reactive and mood congruent) Speech: Appropriate Attention: WNL Concentration: WNL Association: WNL Fund of Knowledge: WNL Formal Thought Process: No Impairment Description of patient's judgement and insight: Pt has improved insight into mental and medical illness, pt was compliant with medications and unit rules and regulations, pt was going to groups, was calm, cooperative, socially appropriate, no behavioral incidents, no agitation, no aggression. Psychotic Thoughts and Behaviors: Pt denied v/a/t hallucinations, denied paranoid ideations, pt does not appear to be psychotic, and thought process is goal directed. Suicidal Ideation: No Current Homicidal Ideation?: No Plan: pt adamantly denied thoughts of harming self or others denied intent or plan. Discharge Summary - Discharge Note Reason for Hospitalization: Patient was admitted to the psychiatric inpatient unit for evaluation and stabilization of depressive symptoms, inability to function, no energy, patient was losing weight, patient had intrusive thoughts, patient also held a knife against her left wrist couple of nights ago. Psychiatric History (includes Medical, Family, Personal Hx): see HPI Laboratory Data: 05/02/18 14:30 05/02/18 14:30 Lab Results 05/03/18 07:45: RPR Nonreactive 05/03/18 07:45: Fasting Glucose 117 H, Triglycerides 75, Cholesterol 255 H, LDL Cholesterol Direct 123, HDL Cholesterol 89 H 05/02/18 19:00: TSH 3rd Generation 1.59 05/02/18 16:00: Urine Opiates Screen Negative, Urine Methadone Screen Negative, Ur Barbiturates Screen Negative, Ur Phencyclidine Scrn Negative, Ur Amphetamines Screen Negative, U Benzodiazepines Scrn Negative, U Oth Cocaine Metabols Negative, U Cannabinoids Screen Negative 05/02/18 16:00: Urine Color Yellow, Urine Appearance Slight-cloudy, Urine pH 6.0, Ur Specific Man[place] >= 1.030, Urine Protein Negative, Urine Glucose (UA) Negative, Urine Ketones Negative, Urine Blood Trace-intact H, Urine Nitrate Negative, Urine Bilirubin Negative, Urine Urobilinogen 0.2, Ur Leukocyte Esterase Negative, Urine RBC 5 - 10 H, Urine WBC 2 - 5, Ur Epithelial Cells 6 - 8 H, Amorphous Sediment Small 05/02/18 14:30: Alcohol, Quantitative < 10 05/02/18 14:30: Salicylates < 1 L, Acetaminophen < 10.0 L 05/02/18 14:30: Sodium 139, Potassium 4.0, Chloride 104, Carbon Dioxide 26, Anion Gap 12, BUN 23 H, Creatinine 0.7, Est GFR ( Amer) > 60, Est GFR (Non-Af Amer) > 60, Random Glucose 114 H, Calcium 9.4, Total Bilirubin 0.3, AST 27, ALT 24, Alkaline Phosphatase 78, Total Protein 7.1, Albumin 4.2, Globulin 2 .9, Albumin/Globulin Ratio 1.5 05/02/18 14:30: WBC 6.4, RBC 4.62, Hgb 13.9, Hct 41.4, MCV 89.6, MCH 30.1, MCHC 33.6, RDW 12.5, Plt Count 308, MPV 9.1, Gran % 65.9, Lymph % (Auto) 27.1, [place] % (Auto) 5.6, Eos % (Auto) 0.8 L, Baso % (Auto) 0.6, Gran # 4.22, Lymph # (Auto) 1.7, [place] # (Auto) 0.4, Eos # (Auto) 0.1, Baso # (Auto) 0.04 Vital Signs Temp Pulse Pulse Resp BP Pulse Ox 05/06/18 07:30 97.9 F 88 20 104/63 05/05/18 07:18 97.8 F 78 20 127/59 L 05/04/18 07:00 97.9 F 100 H 19 143/76 05/03/18 07:27 98.7 F 88 20 123/65 05/02/18 22:06 127/71 05/02/18 21:34 90 18 05/02/18 17:10 97.9 F 106 H 18 158/86 H 97 05/02/18 14:00 98.0 F 118 H 18 125/63 99 Consultations:: List each consultation separately and include: 1. Reason for request. 2. Findings. 3. Follow-up Consultations: Medical consult appreciated, please see notes for more detailed information. Patient is aware that she needs to follow-up with her primary care physician within 6-7 days after discharge No antibiotics recommended for symptomatic urinary tract infection Patient has high cholesterol level which can be addressed patient Summary of Hospital Course include:: 1. Description of specific treatment plan utilized for patients during their course of treatmen. 2. Summarize the time- course for resolution of acute symptoms and/or regressed behaviors. 3. Describe issues identified and worked on during hospitalization. 4. Describe medication utilized. 5. Describe medical problems identified and treated. 6. Reassessment of suicide risk Summary of Hospital Course: shortly pt is a 63 year old female, with a history of treatment resistant depression, anxiety, two previous psychiatric admissions 2018, currently under care of [facility] and sees , pt retired, lives alone, pt came to the hospital accompanied by her sister, as per ED report pt was referred for admission (as per pt for ECT treatment) by her psychiatrist, pt was admitted for evaluation and stabilization of depressive symptoms, inability to function, possible suicidal ideation, "I put a knife on my wrist but I didn't put pressure on it..., I am afraid to go to hell". As per ED report pt was compliant with medications and follow up appointments, pt requires further evaluation and stabilization and meds adjustment and possible ECT treatment. Please see admission note for more detailed information. 05/02/18 14:30 05/02/18 14:30 Lab Results 05/03/18 07:45: Fasting Glucose 117 H, Triglycerides 75, Cholesterol 255 H, LDL Cholesterol Direct 123, HDL Cholesterol 89 H 05/02/18 19:00: TSH 3rd Generation 1.59 05/02/18 16:00: Urine Opiates Screen Negative, Urine Methadone Screen Negative, Ur Barbiturates Screen Negative, Ur Phencyclidine Scrn Negative, Ur Amphetamines Screen Negative, U Benzodiazepines Scrn Negative, U Oth Cocaine Metabols Negative, U Cannabinoids Screen Negative 05/02/18 16:00: Urine Color Yellow, Urine Appearance Slight-cloudy, Urine pH 6.0, Ur Specific Man[place] >= 1.030, Urine Protein Negative, Urine Glucose (UA) Negative, Urine Ketones Negative, Urine Blood Trace-intact H, Urine Nitrate Negative, Urine Bilirubin Negative, Urine Urobilinogen 0.2, Ur Leukocyte Esterase Negative, Urine RBC 5 - 10 H, Urine WBC 2 - 5, Ur Epithelial Cells 6 - 8 H, Amorphous Sediment Small 05/02/18 14:30: Alcohol, Quantitative < 10 05/02/18 14:30: Salicylates < 1 L, Acetaminophen < 10.0 L 05/02/18 14:30: Sodium 139, Potassium 4.0, Chloride 104, Carbon Dioxide 26, Anion Gap 12, BUN 23 H, Creatinine 0.7, Est GFR ( Amer) > 60, Est GFR (Non-Af Amer) > 60, Random Glucose 114 H, Calcium 9.4, Total Bilirubin 0.3, AST 27, ALT 24, Alkaline Phosphatase 78, Total Protein 7.1, Albumin 4.2, Globulin 2.9, Albumin/Globulin Ratio 1.5 05/02/18 14:30: WBC 6.4, RBC 4.62, Hgb 13.9, Hct 41.4, MCV 89.6, MCH 30.1, MCHC 33.6, RDW 12.5, Plt Count 308, MPV 9.1, Gran % 65.9, Lymph % (Auto) 27.1, [place] % (Auto) 5.6, Eos % (Auto) 0.8 L, Baso % (Auto) 0.6, Gran # 4.22, Lymph # (Auto) 1.7, Kin[place] # (Auto) 0.4, Eos # (Auto) 0.1, Baso # (Auto) 0.04 Vital Signs Temp Pulse Pulse Resp BP Pulse Ox 05/03/18 07:27 98.7 F 88 20 123/65 05/02/18 22:06 127/71 05/02/18 21:34 90 18 05/02/18 17:10 97.9 F 106 H 18 158/86 H 97 05/02/18 14:00 98.0 F 118 H 18 125/63 99 Over the course of this hospitalization medications were confirmed by patient pharmacy, patient was on tapering dose of Effexor, patient had upper extremity tremor on Paxil, 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. Over the course of this hospitalization pt was attending groups, pt also had medication management, had therapeutic milieu. Overall pt improved significantly, pt's affect became brighter, pt was less depressed, has realistic future oriented plans (pt wants to move back to [place], patient is in the process of looking for a new apartment, patient wants to be referred to IOP program), pt also does not appear to be psychotic, or anxious, pt was socially appropriate, no behavioral issues, pts insight improved as well and soon pt deemed to be ready for discharge. At the time of the discharge patient pose no imminent danger to self or others, will be following up at [facility] IOP program, information about follow up appointment, time and address provided to the pt, (see SW note for more detailed information). It is a patient responsibility to follow up with outpatient clinic, PMD as well as specialists. In case patient will need to obtain results of studies pending at discharge, patient was provided with contact information of Psychiatric Inpatient unit [phone] as well as Medical Record Department [phone], as well as [facility] team [phone]. Patient denied using drugs, denied alcohol consumption Patient was educated his symptoms will be not improving ECT could be beneficial for her, patient verbalized understanding pt was provided with prescriptions for two weeks and one refill for psychotropic meds and one week for medical meds (see medication reconciliation form) Pt was educated about safety plan in case of worsening of symptoms or in case of suicidal or homicidal ideation call 911 or go to the nearest ER, also was educated to take meds as prescribed and stay away from drugs, pt verbalized understanding. - Diagnosis (1) MDD (major depressive disorder) Current Visit: Yes Status: Acute Priority: High - Final Diagnosis (DSM 5) Condition upon Discharge: STABLE Disposition: HOME/ ROUTINE Follow-up Treatment Plan: At the time of the discharge patient pose no imminent danger to self or others, will be following up at [facility] IOP program, information about follow up appointment, time and address provided to the pt, (see SW note for more detailed information). It is a patient responsibility to follow up with outpatient clinic, PMD as well as specialists. In case patient will need to obtain results of studies pending at discharge, patient was provided with contact information of Psychiatric Inpatient unit [phone] as well as Medical Record Department [phone], as well as [facility] team [phone]. Patient denied using drugs, denied alcohol consumption Patient was educated his symptoms will be not improving ECT could be beneficial for her, patient verbalized understanding pt was provided with prescriptions for two weeks and one refill for psychotropic meds and one week for medical meds (see medication reconciliation form) Pt was educated about safety plan in case of worsening of symptoms or in case of suicidal or homicidal ideation call 911 or go to the nearest ER, also was educated to take meds as prescribed and stay away from drugs, pt verbalized understanding. Prescriptions/Medication Reconciliation: clonazePAM [Klonopin] 0.25 mg PO BID #7 tab Fluoxetine HCl [Prozac] 40 mg PO DAILY #14 capsule - Smoking Cessation Smoking Cessation Medication prescribed: No Reason for not providing: Patient denied smoking - Antipsychotic Medications Pt discharged on 2 or more routine antipsychotic medications: No
== END 2018-05-06 16:05 | disposition home or self-care (01) | DRG 881 ==
LOC: ED 13:57 → ERH 16:38 → PSYC 18:42
PROVIDERS: ADMIT Psychiatry & Neurology Psychiatry; ATTEND Psychiatry & Neurology Psychiatry
DX: F32.9 Major depressive disorder, single episode, unspecified (principal); N39.0 Urinary tract infection, site not specified; R45.851 Suicidal ideations; E78.00 Pure hypercholesterolemia, unspecified; E78.5 Hyperlipidemia, unspecified; F41.9 Anxiety disorder, unspecified; J44.9 Chronic obstructive pulmonary disease, unspecified; R25.1 Tremor, unspecified; Z81.8 Family history of other mental and behavioral disorders

== ENCOUNTER 2018-05-24 10:53 | Inpatient (IN) | payer MEDICARE, BC ==
[2018-05-24 11:50] VITALS: BMI 18.5
--- NOTE | 2018-05-24 12:38 | RAD ---
Date of service: 05/24/2018 HISTORY: pes eval COMPARISON: Comparison is made with 05/02/2018 FINDINGS: LUNGS: No evidence of new infiltrate or consolidation in the lungs PLEURA: No significant pleural effusion identified, no pneumothorax apparent. CARDIOVASCULAR: No aortic atherosclerotic calcification present. Normal cardiac size. No pulmonary vascular congestion. OSSEOUS STRUCTURES: No significant abnormalities. VISUALIZED UPPER ABDOMEN: Normal. OTHER FINDINGS: None. IMPRESSION: No significant interval changes noted.
[2018-05-24 13:21] LABS: BASO # 0.02 K/mm3 (0.0-2.0); BASO % 0.3 % (0.0-3.0); EOS # 0.1 (0.0-0.7); EOS % 0.8 % (1.5-5.0); HEMOGLOBIN 14.2 g/dL (12.0-16.0); LYMPH # 1.1 (1.2-3.4); LYMPH % 18.7 % (22.0-35.0); MEAN CELL VOLUME 87.3 fl (80.0-105.0); MEAN CORPUSCULAR HEMOGLOBIN 29.5 pg (25.0-35.0); MEAN CORPUSCULAR HGB CONC 33.8 g/dl (31.0-37.0); MEAN PLATELET VOLUME 8.8 fl (7.0-11.0); MONO # 0.6 (0.1-0.6); MONO % 9.5 % (1.0-6.0); RBC 4.81 10^6/uL (3.5-6.1); RED CELL DISTRIBUTION WIDTH 12.4 % (11.5-14.5)
[2018-05-24 13:33] LABS: ACETAMINOPHEN < 10.0 ug/ml (10.0-20.0); ALB/GLOB RATIO 1.4 (1.1-1.8); ALBUMIN 4.3 g/dL (3.0-4.8); ALT/SGPT 14 U/L (7-56); AST/SGOT 21 U/L (14-36); BLOOD UREA NITROGEN 17 mg/dL (7-21); CALCIUM 9.5 mg/dL (8.4-10.5); GFR NON-AFRICAN AMERICAN > 60; SALICYLATE < 1 mg/dL (2.0-20.0)
--- NOTE | 2018-05-24 13:56 | CARD ---
APPROVED REPORT Date of service: 05/24/2018 EKG Measurement Heart [id number] <Conclusion> Normal sinus rhythm Left bundle branch block Abnormal ECG
--- NOTE | 2018-05-24 15:11 | ED PDOC ---
Arrival/HPI - General Chief Complaint: Psychiatric Evaluation Time Seen by Provider: 05/24/18 11:19 Historian: Patient - History of Present Illness Narrative History of Present Illness (Text): 05/24/18 15:09 63-year-old female with a history of depression presents today with worsening depression and suicidal ideation. Patient states she has been taking her medications as prescribed but it doesn't feel like it's working. Patient states yesterday she put something around her neck and wanted to strangle herself. She denies headaches dizziness or weakness. No chest pain or shortness of breath. No abdominal pain. No other complaints. Past Medical History - Provider Review Nursing Documentation Reviewed: Yes - Travel History Have you recently traveled outside [place] w/in the past 3 mons?: No - Infectious Disease Hx of Infectious Diseases: None - Reproductive Menopause: Yes - Cardiac Hx Cardiac Disorders: No Hx Hypertension: No - Pulmonary Hx Tuberculosis: No - Neurological HX Cerebrovascular Accident: No Hx Seizures: No - Hematological/Oncological Hx Cancer: No - Genitourinary/Gynecological Hx Sexually Transmitted Diseases: No - Psychiatric Hx Depression: Yes Hx Substance Use: No - Anesthesia Hx Anesthesia Reactions: No Family/Social History - Physician Review Nursing Documentation Reviewed: Yes Family/Social History: Unknown Family HX Smoking Status: Unknown If Ever Smoked Hx Alcohol Use: No Hx Substance Use: No Allergies/Home Meds Allergies/Adverse Reactions: Allergies No Known Allergies Allergy (Verified 05/02/18 14:24) Review of Systems - Review of Systems Constitutional: absent: Fatigue, Fevers Respiratory: absent: SOB, Cough Cardiovascular: absent: Chest Pain, Palpitations Gastrointestinal: absent: Abdominal Pain, Constipation, Diarrhea, Nausea, Vomiting Genitourinary Female: absent: Dysuria, Frequency Musculoskeletal: absent: Arthralgias, Back Pain, Neck Pain Skin: absent: Rash, Pruritis Neurological: absent: Headache, Dizziness Psychiatric: Depression, Suicidal Ideation. absent: Anxiety Physical Exam Vital Signs Reviewed: Yes Vital Signs Temp Pulse Resp BP Pulse Ox 05/24/18 11:48 97.6 F 94 H 18 115/65 95 Temperature: Afebrile Blood Pressure: Normal Pulse: Regular Respiratory Rate: Normal Appearance: Positive for: Well-Appearing, Non-Toxic, Comfortable Pain Distress: None Mental Status: Positive for: Alert and Oriented X 3 - Systems Exam Head: Present: Atraumatic Mouth: Present: Moist Mucous Membranes Neck: Present: Normal Range of Motion Respiratory/Chest: Present: Clear to Auscultation, Good Air Exchange. No: Respiratory Distress, Accessory Muscle Use Cardiovascular: Present: Regular Rate and Rhythm, Normal S1, S2. No: Murmurs Abdomen: No: Tenderness Upper Extremity: Present: Normal ROM Lower Extremity: Present: Normal ROM Neurological: Present: GCS=15, Speech Normal Skin: Present: Warm, Dry, Normal Color. No: Rashes Psychiatric: Present: Alert, Oriented x 3, Depressed Mood, Suicidal Ideation Medical Decision Making ED Course and Treatment: 05/24/18 15:10 Patient is nontoxic well-appearing in no distress vital signs are stable. CBC WNL CMP WNL Tylenol WNL Salicylate WNL Alcohol level WNL Urine drug screen wnl UA; ketones cxr: wnl ekg normal sinus rhythm at 78 bpm normal axis no ST elevations left bundle branch block. unchanged from previous EKG. pt is medically cleared for PES evaluation Patient was seen and evaluated by PES screener: renan Quiroz; MDD Admit behavioral health - Lab Interpretations Lab Results: Total Bilirubin 0.5 mg/dL (0.2-1.3) 05/24/18 13:10 AST 21 U/L (14-36) 05/24/18 13:10 ALT 14 U/L (7-56) 05/24/18 13:10 Alkaline Phosphatase 78 U/L (38-126) 05/24/18 13:10 Total Protein 7.3 g/dL (5.8-8.3) 05/24/18 13:10 Albumin 4.3 g/dL (3.0-4.8) 05/24/18 13:10 Globulin 3.0 gm/dL 05/24/18 13:10 Albumin/Globulin Ratio 1.4 (1.1-1.8) 05/24/18 13:10 - RAD Interpretation Radiology Orders: 05/24/18 11:51 CHEST PORTABLE [RAD] Stat Disposition/Present on Arrival - Present on Arrival Any Indicators Present on Arrival: No History of DVT/PE: No History of Uncontrolled Diabetes: No Urinary Catheter: No History of Decub. Ulcer: No History Surgical Site Infection Following: None - Disposition Have Diagnosis and Disposition been Completed?: Yes Diagnosis: MDD (major depressive disorder) Disposition: HOSPITALIZED Disposition Time: 14:09 Patient Plan: Admission Patient Problems: Current Active Problems Problem Status Onset MDD (major depressive disorder) Acute Condition: FAIR Forms: [employer] ([place])
[2018-05-24 15:30] LABS: URINE BILIRUBIN NEGATIVE (NEGATIVE); URINE BLOOD NEGATIVE (NEGATIVE); URINE GLUCOSE (UA) NEGATIVE (NEGATIVE); URINE LEUKOCYTE ESTERASE NEGATIVE Leu/uL (NEGATIVE); URINE PROTEIN NEGATIVE mg/dL (<30 mg/dL); URINE UROBILINOGEN 0.2 E.U./dL (<1 E.U./dL)
[2018-05-24 15:35] LABS: URINE APPEARANCE CLEAR (CLEAR); URINE COLOR YELLOW (YELLOW)
[2018-05-24 15:37] LABS: BARBITURATES, UR NEGATIVE (NEGATIVE); BENZODIAZEPINES, UR NEGATIVE (NEGATIVE); OPIATES, UR NEGATIVE (NEGATIVE); PHENCYCLIDINE, UR NEGATIVE (NEGATIVE)
[2018-05-24] MEDS ORDERED: Magnesium Hydroxide Susp 30 ml UD PO PRN (20:11)
[2018-05-24] MEDS ORDERED: Alum-Mag Hydrox-Simethicone Susp (30 mL) PO PRN (20:11)
--- NOTE | 2018-05-25 00:29 | PCM.BM ---
<CandyValentín O - Last Filed: 05/25/18 00:25> Treatment Plan Problems - Problems identified on initial assessmt Ineffective coping Date Initiated: 05/24/18 Time Initiated: 22:45 Assessment reference: NA Status: Active social isolation Date Initiated: 05/24/18 Time Initiated: 22:50 Assessment reference: NA Status: Active Self-care deficit Date Initiated: 05/24/18 Time Initiated: 22:50 Assessment reference: NA Status: Active Treatment assets and liabiliti Patient Assests: cooperative, educated, insightful, motivated, physically healthy, good support system, financial stabiity, cognitively intact Patient Liabilities: live alone, poor support system - Milieu Protocol Maintain good personal hygiene: daily Encourage regular showers, daily Remind patient to perform daily oral care, daily Assist patient to perform ADL's Conduct patient checks and document Observation sheet: Q15 minutes Maintain personal safety: daily Educate patient to report safety concerns to staff, daily Monitor environment for contraband/sharps Medication safety: Monitor for expected outcome, potential side effects: daily, Assess barriers to learning: daily, Assess readiness for medication education: daily Family Contact Family involvement: Family/SO is involved Family contact: Family has been contacted by patient, Family contacted unit to give information - Goals for Treatment Patient goals for treatment: Lift depression and start enjoying life Discharge/Continuing Care - Education Needs Education Needs: Patient Medication, Patient Diagnosis/Disease Process, Patient Coping Skills, Patient Activities of Daily Living - Discharge Discharge Criteria: Free of Suicidal thoughts <Azucena Person - Last Filed: 05/26/18 05:20> - Diagnosis (1) Anxiety Status: Acute Interventions: group, milieu and supportive tx * klonopin 0.25 mg po TID for anxiety * Prozac 60 mg po daily for depression and anxiety * Risperdal 1 mg po HS (started last week by her outpatient psychiatrist) * Sonata 5 mg po HS for insomnia 05/26/18 05:20 (2) MDD (major depressive disorder) Status: Acute Interventions: group, milieu and supportive tx * klonopin 0.25 mg po TID for anxiety * Prozac 60 mg po daily for depression and anxiety * Risperdal 1 mg po HS (started last week by her outpatient psychiatrist) * Sonata 5 mg po HS for insomnia 05/26/18 05:20 <Eri Hyde - Last Filed: 05/27/18 12:06> Family Contact Family involvement: Family/SO is involved Family contact: Patient agrees to contact Family contact name: Eloina Beebe(sister) Family contacted how many times per week?: 2 - Outside Agency [facility] Care involvment: Information-sharing Agency contact name: [facility] Agency contact number: [phone] <Kya Knight - Last Filed: 05/27/18 14:24>
[2018-05-25 08:43] LABS: HDL CHOLESTEROL 79 mg/dL (29-60)
[2018-05-25 08:54] LABS: LDL CHOLESTEROL 126 mg/dL (0-129)
--- NOTE | 2018-05-25 09:43 | PCM.PSYCH ---
Initial Psychiatric Evaluation - Initial Psychiatric Evaluation Type of Admission: Voluntary Legal Status: Capacity History of Present Illness and Precipitating Events: Please refer to Dr. Viera's initial psychiatric evaluation dated 05/03/18 for full assessment. Patient was recently hospitalized on our psychiatric unit from 05/02/18-05/06/18. Patient is a 63 year old female, with a history of treatment resistant depression, anxiety, reportedly compliant with outpatient medications Prozac, klonopin and risperdal prescribed by at [facility] (last appointment was 05/17/18) who was BIB her sister to our ER yesterday with depression and SI to strangle herself. According to ER report, patient put a rubber band around her neck x2 days ago. Prior to her admission last month she had SI to cut her writs "I put a knife on my wrist but I didn't put pressure on it..., I am afraid to go to hell". I met with patient at bedside. She appears groomed, coherent and cooperative. Alert and well-oriented to month, year, location and circumstances. Thus far she is tolerating her medications and denies any new discomfort or pain. She is considering ECT and plans to discuss this treatment option with Dr. Viera on Sunday. Thus far patient has been in good behavioral control and there were no behaviora l issues overnight. The patient failed the outpatient lower level of care: Yes Current Medications: Active Medications Generic Name Dose Route Start Last Admin Trade Name Freq PRN Reason Stop Dose Admin Acetaminophen 650 mg 05/24/18 20:11 Tylenol 325mg Tab PO Q6H PRN Pain, moderate (4-7) Al Hydrox/Mg Hydrox/Simethicone 30 ml 05/24/18 20:11 Maalox Plus 30 Ml PO DAILY PRN Upset Stomach Clonazepam 0.25 mg 05/24/18 20:14 Klonopin PO TID PRN Anxiety Protocol Fluoxetine HCl 60 mg 05/25/18 08:00 Prozac PO DAILY MELODY Magnesium Hydroxide 30 ml 05/24/18 20:11 Milk Of Magnesia PO DAILY PRN Constipation Risperidone 1 mg 05/24/18 22:00 05/24/18 21:34 Risperdal Tab PO 1 mg HS MELODY Administration Zaleplon 5 mg 05/24/18 22:00 Sonata PO HS PRN Insomnia Present on Admission - Present on Admission Any Indicators Present on Admission: No - Notes: Notes:: Please refer to ER report dated 05/24/18 for ROS and Physical Exam findings Review of Systems - Review of Systems Review of Systems: Please refer to ER report dated 05/24/18 for ROS and Physical Exam findings - Constitutional Constitutional: As Per HPI - EENT Eyes: As Per HPI Ears: As Per HPI Nose/Mouth/Throat: As Per HPI - Breasts Breasts: As Per HPI - Cardiovascular Cardiovascular: As Per HPI - Respiratory Respiratory: As Per HPI - Gastrointestinal Gastrointestinal: As Per HPI - Genitourinary Genitourinary: As Per HPI - Reproductive: Female Reproductive:Female: As Per HPI - Menstruation Menstruation: As Per HPI - Musculoskeletal Musculoskeletal: As Per HPI - Integumentary Integumentary: As Per HPI - Neurological Neurological: As Per HPI - Psychiatric Psychiatric: As Per HPI - Endocrine Endocrine: As Per HPI - Hematologic/Lymphatic Hematologic: As Per HPI Past Patient History - Past Psychiatric History Prior Professional Help: Please refer to HPI - PSYCHIATRIC Hx Depression: Yes Hx Substance Use: No - Infectious Disease Hx of Infectious Diseases: None - CARDIAC Hx Cardiac Disorders: No Hx Hypertension: No - PULMONARY Hx Tuberculosis: No - NEUROLOGICAL HX Cerebrovascular Accident: No Hx Seizures: No - HEMATOLOGICAL/ONCOLOGICAL Hx Cancer: No - GENITOURINARY/GYNECOLOGICAL Hx Sexually Transmitted Disorders: No - ANESTHESIA Hx Anesthesia Reactions: No - Medical/Surgical History Reviewed & confirmed: by me (Please refer to ER report dated 05/24/18 for ROS and Physical Exam findings) Meds Allergies/Adverse Reactions: Allergies Allergy/AdvReac Type Severity Reaction Status Date / Time No Known Allergies Allergy Verified 05/24/18 23:11 Mental Status Examination - Personal Presentation Personal Presentation: Looks stated age - Affect Affect: Constricted - Motor Activity Motor Activity: Calm - Reliability in Providing Information Reliability in Providing Information: Good - Speech Speech: Organized - Mood Mood: Depressed, Anxious - Formal Thought Process Formal Thought Process: No Impairment - Cognitive Functions Orientation: Person, Place, Situation Sensorium: Alert Attention/Concentration: Attentive Estimate of Intelligence: Average Judgement: Intact, as evidence by: Insight regarding need for hospitalization Memory: Recent intact, as evidence by: Ability to recall events of the day - Risk Risk: Suicidal, Diminished functioning Psychiatric Physical Exam - Physical Exam Reviewed and confirmed: Emergency Department Physical Exam (Please refer to ER report dated 05/24/18 for ROS and Physical Exam findings) Results - Vital Signs Recent Vital Signs: Last Vital Signs Temp 98 F 05/24/18 17:28 Pulse 78 05/24/18 17:28 Resp 18 05/24/18 17:28 BP 129/82 05/24/18 17:28 Pulse Ox 98 05/24/18 17:28 - Labs Result Diagrams: 05/24/18 13:10 05/24/18 13:10 Labs: Laboratory Results - last 24 hr 05/24/18 05/24/18 05/24/18 13:10 13:10 13:10 WBC 6.0 RBC 4.81 Hgb 14.2 Hct 42.0 MCV 87.3 MCH 29.5 MCHC 33.8 RDW 12.4 Plt Count 253 MPV 8.8 Neut % (Auto) 70.7 H Lymph % (Auto) 18.7 L [place] % (Auto) 9.5 H Eos % (Auto) 0.8 L Baso % (Auto) 0.3 Lymph # (Auto) 1.1 L [place] # (Auto) 0.6 Eos # (Auto) 0.1 Baso # (Auto) 0.02 Absolute Neuts (auto) 4.24 Sodium 137 Potassium 4.0 Chloride 103 Carbon Dioxide 27 Anion Gap 11 BUN 17 Creatinine 0.6 L Est GFR ( Amer) > 60 Est GFR (Non-Af Amer) > 60 Random Glucose 90 Calcium 9.5 Total Bilirubin 0.5 AST 21 ALT 14 Alkaline Phosphatase 78 Total Protein 7.3 Albumin 4.3 Globulin 3.0 Albumin/Globulin Ratio 1.4 Urine Color Urine Appearance Urine pH Ur Specific [place] Urine Protein Urine Glucose (UA) Urine Ketones Urine Blood Urine Nitrate Urine Bilirubin Urine Urobilinogen Ur Leukocyte Esterase Salicylates < 1 L Urine Opiates Screen Urine Methadone Screen Acetaminophen < 10.0 L Ur Barbiturates Screen Ur Phencyclidine Scrn Ur Amphetamines Screen U Benzodiazepines Scrn U Oth Cocaine Metabols U Cannabinoids Screen Alcohol, Quantitative 05/24/18 05/24/18 05/24/18 13:10 15:10 15:10 WBC RBC Hgb Hct MCV MCH MCHC RDW Plt Count MPV Neut % (Auto) Lymph % (Auto) [place] % (Auto) Eos % (Auto) Baso % (Auto) Lymph # (Auto) [place] # (Auto) Eos # (Auto) Baso # (Auto) Absolute Neuts (auto) Sodium Potassium Chloride Carbon Dioxide Anion Gap BUN Creatinine Est GFR ( Amer) Est GFR (Non-Af Amer) Random Glucose Calcium Total Bilirubin AST ALT Alkaline Phosphatase Total Protein Albumin Globulin Albumin/Globulin Ratio Urine Color Yellow Urine Appearance Clear Urine pH 6.0 Ur Specific [place] 1.025 Urine Protein Negative Urine Glucose (UA) Negative Urine Ketones 15 H Urine Blood Negative Urine Nitrate Negative Urine Bilirubin Negative Urine Urobilinogen 0.2 Ur Leukocyte Esterase Negative Salicylates Urine Opiates Screen Negative Urine Methadone Screen Negative Acetaminophen Ur Barbiturates Screen Negative Ur Phencyclidine Scrn Negative Ur Amphetamines Screen Negative U Benzodiazepines Scrn Negative U Oth Cocaine Metabols Negative U Cannabinoids Screen Negative Alcohol, Quantitative < 10 - Impressions Impression: Please refer to ER report dated 05/24/18 for ROS and Physical Exam findings DSM Plan - DSM 5 DSM 5 Diagnosis: Major Depression, Severe and recurrent (tx resistant) TRU - Recommended/Plan of Treatment Treatment Recommendations and Plan of Treatment: * group, milieu and supportive tx * klonopin 0.25 mg po TID for anxiety * Prozac 60 mg po daily for depression and anxiety * Risperdal 1 mg po HS (started last week by her outpatient psychiatrist) * Sonata 5 mg po HS for insomnia * Awaiting medical f/u * Vitals reviewed and noted below: Selected Entries 05/24/18 05/25/18 17:28 07:00 Temperature 98 F 97.8 F Pulse Rate 78 85 Respiratory 18 20 Rate Blood Pressure 129/82 106/66 ER LABS AND STUDIES cxr: wnl ekg normal sinus rhythm at 78 bpm normal axis no ST elevations left bundle branch block. unchanged from previous EKG. ADMISSION LABS Laboratory Tests 05/24/18 05/24/18 05/24/18 13:10 13:10 13:10 WBC 6.0 RBC 4.81 Hgb 14.2 Hct 42.0 MCV 87.3 MCH 29.5 MCHC 33.8 RDW 12.4 Plt Count 253 MPV 8.8 Neut % (Auto) 70.7 H Lymph % (Auto) 18.7 L [place] % (Auto) 9.5 H Eos % (Auto) 0.8 L Baso % (Auto) 0.3 Lymph # (Auto) 1.1 L [place] # (Auto) 0.6 Eos # (Auto) 0.1 Baso # (Auto) 0.02 Absolute Neuts (auto) 4.24 Sodium 137 Potassium 4.0 Chloride 103 Carbon Dioxide 27 Anion Gap 11 BUN 17 Creatinine 0.6 L Est GFR ( Amer) > 60 Est GFR (Non-Af Amer) > 60 Random Glucose 90 Calcium 9.5 Total Bilirubin 0.5 AST 21 ALT 14 Alkaline Phosphatase 78 Total Protein 7.3 Albumin 4.3 Globulin 3.0 Albumin/Globulin Ratio 1.4 Triglycerides Cholesterol LDL Cholesterol Direct HDL Cholesterol TSH 3rd Generation Urine Color Urine Appearance Urine pH Ur Specific [place] Urine Protein Urine Glucose (UA) Urine Ketones Urine Blood Urine Nitrate Urine Bilirubin Urine Urobilinogen Ur Leukocyte Esterase Salicylates < 1 L Urine Opiates Screen Urine Methadone Screen Acetaminophen < 10.0 L Ur Barbiturates Screen Ur Phencyclidine Scrn Ur Amphetamines Screen U Benzodiazepines Scrn U Oth Cocaine Metabols U Cannabinoids Screen Alcohol, Quantitative 05/24/18 05/24/18 05/24/18 13:10 15:10 15:10 WBC RBC Hgb Hct MCV MCH MCHC RDW Plt Count MPV Neut % (Auto) Lymph % (Auto) [place] % (Auto) Eos % (Auto) Baso % (Auto) Lymph # (Auto) [place] # (Auto) Eos # (Auto) Baso # (Auto) Absolute Neuts (auto) Sodium Potassium Chloride Carbon Dioxide Anion Gap BUN Creatinine Est GFR ( Amer) Est GFR (Non-Af Amer) Random Glucose Calcium Total Bilirubin AST ALT Alkaline Phosphatase Total Protein Albumin Globulin Albumin/Globulin Ratio Triglycerides Cholesterol LDL Cholesterol Direct HDL Cholesterol TSH 3rd Generation Urine Color Yellow Urine Appearance Clear Urine pH 6.0 Ur Specific [place] 1.025 Urine Protein Negative Urine Glucose (UA) Negative Urine Ketones 15 H Urine Blood Negative Urine Nitrate Negative Urine Bilirubin Negative Urine Urobilinogen 0.2 Ur Leukocyte Esterase Negative Salicylates Urine Opiates Screen Negative Urine Methadone Screen Negative Acetaminophen Ur Barbiturates Screen Negative Ur Phencyclidine Scrn Negative Ur Amphetamines Screen Negative U Benzodiazepines Scrn Negative U Oth Cocaine Metabols Negative U Cannabinoids Screen Negative Alcohol, Quantitative < 10 05/25/18 05/25/18 08:15 08:15 WBC RBC Hgb Hct MCV MCH MCHC RDW Plt Count MPV Neut % (Auto) Lymph % (Auto) [place] % (Auto) Eos % (Auto) Baso % (Auto) Lymph # (Auto) [place] # (Auto) Eos # (Auto) Baso # (Auto) Absolute Neuts (auto) Sodium Potassium Chloride Carbon Dioxide Anion Gap BUN Creatinine Est GFR ( Amer) Est GFR (Non-Af Amer) Random Glucose Calcium Total Bilirubin AST ALT Alkaline Phosphatase Total Protein Albumin Globulin Albumin/Globulin Ratio Triglycerides 57 Cholesterol 255 H LDL Cholesterol Direct 126 HDL Cholesterol 79 H TSH 3rd Generation 1.23 Urine Color Urine Appearance Urine pH Ur Specific [place] Urine Protein Urine Glucose (UA) Urine Ketones Urine Blood Urine Nitrate Urine Bilirubin Urine Urobilinogen Ur Leukocyte Esterase Salicylates Urine Opiates Screen Urine Methadone Screen Acetaminophen Ur Barbiturates Screen Ur Phencyclidine Scrn Ur Amphetamines Screen U Benzodiazepines Scrn U Oth Cocaine Metabols U Cannabinoids Screen Alcohol, Quantitative Projected ELOS: 7 days Prognosis: guarded Discharge Plan and Discharge Criteria: F/U with Dr. Sánchez at [facility] [place] - Tobacco Cessation Tobacco Use Treatment Practical Counseling Provided: No Tobacco Use Treatment FDA-Approved Cessation Medication Provided: No - Alcohol or Substance Abuse Does the patient have an Alcohol or Substance Abuse Disorder: No Initial Psych Certification - Initial Certification I certify that the inpatient psychiatric facility admission was medically necessary for either: Treatment which could reasonbly be expected to improve pt's condition, Diagnostic study I estimate of hospitalization is necessary for proper treatment of the patient: 7 Unit of Time: Days
--- NOTE | 2018-05-26 09:12 | PCM.PYCHPN ---
Psychiatric Progress Note - Psychiatric Progress Note Patient seen today, length of contact: 25 min Problems Identified/Issues Discussed: Please refer to Dr. Viera's initial psychiatric evaluation dated 05/03/18 for full assessment. Patient was recently hospitalized on our psychiatric unit from 05/02/18-05/06/18. Patient is a 63 year old female, with a history of treatment resistant depression, anxiety, reportedly compliant with outpatient medications Prozac, klonopin and risperdal prescribed by at [facility] (last appointment was 05/17/18) who was BIB her sister to our ER yesterday with depression and SI to strangle herself. According to ER report, patient put a rubber band around her neck x2 days ago. Prior to her admission last month she had SI to cut her writs "I put a knife on my wrist but I didn't put pressure on it..., I am afraid to go to hell". I met with patient at bedside again this morning. She appears groomed, coherent and cooperative. Alert and well-oriented to month, year, location and circumstances. Patient reports that sleep was restless and indicates plan to request sleep medication. Affect remains constricted. Thus far she is tolerating her medications and denies any new discomfort or pain. She is considering ECT and plans to discuss this treatment option with Dr. Viera on Sunday. Thus far patient has been in good behavioral control and there were no behavioral issues over the weekend. DSM 5 Symptoms Update: Major Depression, Severe and recurrent (tx resistant) TRU Medication Change: No Medical Record Reviewed: Yes Mental Status Examination - Cognitive Function Orientation: Person, Place, Situation Attention: WNL Concentration: Poor Association: WNL Fund of Knowledge: WNL - Mood Mood: Depressed, Anxious - Affect Affect: Constricted - Formal Thought Process Formal Thought Process: No Impairment - Suicidal Ideation Suicidal Ideation: No - Homicidal Ideation Homicidal Ideation: No Goal/Treatment Plan - Goal/Treatment Plan Progress Toward Problem(s) and Goals/Treatment Plan: * group, milieu and supportive tx * klonopin 0.25 mg po TID for anxiety * Prozac 60 mg po daily for depression and anxiety * Risperdal 1 mg po HS (started last week by her outpatient psychiatrist) * Sonata 5 mg po HS for insomnia * Consider ECT for tx resistant depression * Vitals reviewed and noted below: Selected Entries 05/25/18 05/25/18 07:00 16:00 Temperature 97.8 F Pulse Rate 85 79 Respiratory 20 Rate Blood Pressure 106/66 105/72 ER LABS AND STUDIES cxr: wnl ekg normal sinus rhythm at 78 bpm normal axis no ST elevations left bundle branch block. unchanged from previous EKG. ADMISSION LABS 05/25/18 05/25/18 05/25/18 08:15 08:15 08:15 Triglycerides 57 Cholesterol 255 H LDL Cholesterol Direct 126 HDL Cholesterol 79 H TSH 3rd Generation 1.23 RPR Nonreactive Laboratory Tests 05/24/18 05/24/18 05/24/18 13:10 13:10 13:10 WBC 6.0 RBC 4.81 Hgb 14.2 Hct 42.0 MCV 87.3 MCH 29.5 MCHC 33.8 RDW 12.4 Plt Count 253 MPV 8.8 Neut % (Auto) 70.7 H Lymph % (Auto) 18.7 L [place] % (Auto) 9.5 H Eos % (Auto) 0.8 L Baso % (Auto) 0.3 Lymph # (Auto) 1.1 L [place] # (Auto) 0.6 Eos # (Auto) 0.1 Baso # (Auto) 0.02 Absolute Neuts (auto) 4.24 Sodium 137 Potassium 4.0 Chloride 103 Carbon Dioxide 27 Anion Gap 11 BUN 17 Creatinine 0.6 L Est GFR ( Amer) > 60 Est GFR (Non-Af Amer) > 60 Random Glucose 90 Calcium 9.5 Total Bilirubin 0.5 AST 21 ALT 14 Alkaline Phosphatase 78 Total Protein 7.3 Albumin 4.3 Globulin 3.0 Albumin/Globulin Ratio 1.4 Triglycerides Cholesterol LDL Cholesterol Direct HDL Cholesterol TSH 3rd Generation Urine Color Urine Appearance Urine pH Ur Specific [place] Urine Protein Urine Glucose (UA) Urine Ketones Urine Blood Urine Nitrate Urine Bilirubin Urine Urobilinogen Ur Leukocyte Esterase Salicylates < 1 L Urine Opiates Screen Urine Methadone Screen Acetaminophen < 10.0 L Ur Barbiturates Screen Ur Phencyclidine Scrn Ur Amphetamines Screen U Benzodiazepines Scrn U Oth Cocaine Metabols U Cannabinoids Screen Alcohol, Quantitative 05/24/18 05/24/18 05/24/18 13:10 15:10 15:10 WBC RBC Hgb Hct MCV MCH MCHC RDW Plt Count MPV Neut % (Auto) Lymph % (Auto) [place] % (Auto) Eos % (Auto) Baso % (Auto) Lymph # (Auto) [place] # (Auto) Eos # (Auto) Baso # (Auto) Absolute Neuts (auto) Sodium Potassium Chloride Carbon Dioxide Anion Gap BUN Creatinine Est GFR ( Amer) Est GFR (Non-Af Amer) Random Glucose Calcium Total Bilirubin AST ALT Alkaline Phosphatase Total Protein Albumin Globulin Albumin/Globulin Ratio Triglycerides Cholesterol LDL Cholesterol Direct HDL Cholesterol TSH 3rd Generation Urine Color Yellow Urine Appearance Clear Urine pH 6.0 Ur Specific [place] 1.025 Urine Protein Negative Urine Glucose (UA) Negative Urine Ketones 15 H Urine Blood Negative Urine Nitrate Negative Urine Bilirubin Negative Urine Urobilinogen 0.2 Ur Leukocyte Esterase Negative Salicylates Urine Opiates Screen Negative Urine Methadone Screen Negative Acetaminophen Ur Barbiturates Screen Negative Ur Phencyclidine Scrn Negative Ur Amphetamines Screen Negative U Benzodiazepines Scrn Negative U Oth Cocaine Metabols Negative U Cannabinoids Screen Negative Alcohol, Quantitative < 10 05/25/18 05/25/18 08:15 08:15 WBC RBC Hgb Hct MCV MCH MCHC RDW Plt Count MPV Neut % (Auto) Lymph % (Auto) [place] % (Auto) Eos % (Auto) Baso % (Auto) Lymph # (Auto) [place] # (Auto) Eos # (Auto) Baso # (Auto) Absolute Neuts (auto) Sodium Potassium Chloride Carbon Dioxide Anion Gap BUN Creatinine Est GFR ( Amer) Est GFR (Non-Af Amer) Random Glucose Calcium Total Bilirubin AST ALT Alkaline Phosphatase Total Protein Albumin Globulin Albumin/Globulin Ratio Triglycerides 57 Cholesterol 255 H LDL Cholesterol Direct 126 HDL Cholesterol 79 H TSH 3rd Generation 1.23 Urine Color Urine Appearance Urine pH Ur Specific [place] Urine Protein Urine Glucose (UA) Urine Ketones Urine Blood Urine Nitrate Urine Bilirubin Urine Urobilinogen Ur Leukocyte Esterase Salicylates Urine Opiates Screen Urine Methadone Screen Acetaminophen Ur Barbiturates Screen Ur Phencyclidine Scrn Ur Amphetamines Screen U Benzodiazepines Scrn U Oth Cocaine Metabols U Cannabinoids Screen Alcohol, Quantitative - Smoking Cessation Smoking Cessation Initiated: No
--- NOTE | 2018-05-27 11:34 | CP.PCM.CON ---
<Mick Santos - Last Filed: 05/27/18 11:35> History of Present Illness - History of Present Illness History of Present Illness: Medicine consult note: 63-year-old female with past medical history of depression presents the ED with depression along with suicidal ideation. Patient was just recently admitted to psych for similar presentation. At this time patient denies any medical complai nts. Patient denies any fever, chills, headaches, visual changes, shortness of breath, chest pain, palpitations, abdominal pain, nausea, vomiting, urinary symptoms, diarrhea. 12 point ROS was performed and negative other than stated above PMHx: depression PShx: appendectomy Meds:refer to MAR ALL: NKDA FamHx: Denies SocHx: denies tobacco, EtOH, drug use. Lives alone Review of Systems - Review of Systems All systems: reviewed and no additional remarkable complaints except Past Patient History - Infectious Disease Hx of Infectious Diseases: None - Past Social History Smoking Status: Unknown If Ever Smoked - CARDIAC Hx Cardiac Disorders: No Hx Hypertension: No - PULMONARY Hx Tuberculosis: No - NEUROLOGICAL HX Cerebrovascular Accident: No Hx Seizures: No - HEMATOLOGICAL/ONCOLOGICAL Hx Cancer: No - GENITOURINARY/GYNECOLOGICAL Hx Sexually Transmitted Disorders: No - PSYCHIATRIC Hx Depression: Yes Hx Substance Use: No - ANESTHESIA Hx Anesthesia Reactions: No Meds Allergies/Adverse Reactions: Allergies Allergy/AdvReac Type Severity Reaction Status Date / Time No Known Allergies Allergy Verified 05/24/18 23:11 - Medications Medications: Current Medications Acetaminophen (Tylenol 325mg Tab) 650 mg PO Q6H PRN PRN Reason: Pain, moderate (4-7) Al Hydrox/Mg Hydrox/Simethicone (Maalox Plus 30 Ml) 30 ml PO DAILY PRN PRN Reason: Upset Stomach Clonazepam (Klonopin) 0.25 mg PO TID PRN; Protocol PRN Reason: Anxiety Last Admin: 05/27/18 09:11 Dose: 0.25 mg Fluoxetine HCl (Prozac) 60 mg PO DAILY MELODY Last Admin: 05/27/18 09:09 Dose: 60 mg Magnesium Hydroxide (Milk Of Magnesia) 30 ml PO DAILY PRN PRN Reason: Constipation Risperidone (Risperdal Tab) 1 mg PO HS MELODY Last Admin: 05/26/18 21:38 Dose: 1 mg Zaleplon (Sonata) 5 mg PO HS PRN PRN Reason: Insomnia Physical Exam - Constitutional Appears: No Acute Distress - Head Exam Head Exam: ATRAUMATIC - Eye Exam Eye Exam: EOMI, PERRL - ENT Exam ENT Exam: Mucous Membranes Moist - Respiratory Exam Respiratory Exam: Clear to Auscultation Bilateral. absent: Rales, Rhonchi, Wheezes - Cardiovascular Exam Cardiovascular Exam: REGULAR RHYTHM, +S1, +S2 - GI/Abdominal Exam GI & Abdominal Exam: Normal Bowel Sounds, Soft. absent: Tenderness - Extremities Exam Extremities exam: Negative for: calf tenderness, pedal edema - Neurological Exam Neurological exam: Alert, CN II-XII Intact, Oriented x3 - Psychiatric Exam Psychiatric exam: Normal Mood - Skin Skin Exam: Dry, Warm Results - Vital Signs Recent Vital Signs: Last Vital Signs Temp 97.8 F 05/27/18 07:00 Pulse 81 05/27/18 07:00 Resp 20 05/27/18 07:00 BP 96/60 L 05/27/18 07:00 Pulse Ox 98 05/24/18 17:28 - Labs Result Diagrams: 05/24/18 13:10 05/24/18 13:10 Assessment & Plan - Assessment and Plan (Free Text) Assessment: 1. Elevated cholesterol 2. Major Depressive Disorder After reviewing over the patient's lab work patient's cholesterol is elevated at 255. I counseled the patient regarding the importance of diet and exercise. Continue management for her depression and suicidal ideation by psychiatry. Thank you for the consult. We will sign off. Please reconsult us as needed. Case and plan was reviewed and discussed with Dr. Buchanan. <Merritt Buchanan - Last Filed: 05/28/18 09:19> Meds - Medications Medications: Current Medications Acetaminophen (Tylenol 325mg Tab) 650 mg PO Q6H PRN PRN Reason: Pain, moderate (4-7) Al Hydrox/Mg Hydrox/Simethicone (Maalox Plus 30 Ml) 30 ml PO DAILY PRN PRN Reason: Upset Stomach Clonazepam (Klonopin) 0.25 mg PO TID PRN; Protocol PRN Reason: Anxiety Last Admin: 05/28/18 06:00 Dose: 0.25 mg Fluoxetine HCl (Prozac) 60 mg PO DAILY MELODY Last Admin: 05/27/18 09:09 Dose: 60 mg Magnesium Hydroxide (Milk Of Magnesia) 30 ml PO DAILY PRN PRN Reason: Constipation Risperidone (Risperdal Tab) 1 mg PO HS MELODY Last Admin: 05/27/18 21:13 Dose: 1 mg Zaleplon (Sonata) 5 mg PO HS PRN PRN Reason: Insomnia Results - Vital Signs Recent Vital Signs: Last Vital Signs Temp 97.6 F 05/28/18 07:00 Pulse 76 05/28/18 07:00 Resp 20 05/28/18 07:00 BP 120/69 05/28/18 07:00 Pulse Ox 98 05/24/18 17:28 - Labs Result Diagrams: 05/24/18 13:10 05/24/18 13:10 Assessment & Plan - Assessment and Plan (Free Text) Assessment: Pt seen and examined. Reviewed the note of the medical specialist. I have seen the patient and examined her. She has dyslipidemia. She is admitted to the hospital due to major depression. She may need ECT. Her EKG and CXR was reviewed. She is optimized and cleared for ECT. Medications have been reviewed. Pt is nervous about the procedure. She is on the psych floor. Will not start any cholesterol medications at this time.
--- NOTE | 2018-05-27 15:31 | PCM.PYCHPN ---
Psychiatric Progress Note - Psychiatric Progress Note Patient seen today, length of contact: 30 minutes Patient Chief Complaint: "I am willing to have ECT, if it is possible please call my sister Eloina, I would like to have discussion with her" Problems Identified/Issues Discussed: Suicide/ homicide prevention, past psychiatric h/o, current psychiatric symptoms, medical problems, risk/benefits and alternatives of medications, medications compliance, coping strategies, substance abuse h/o, relapse prevention, importance of follow up with psychiatrist and therapist, discharge plan. Patient was also provided information about ECT treatment, risk, benefits, alternatives discussed. Medical Problems: Patient reported being healthy. Patient was seen by medical team for a ECT clearance, patient has high cholesterol level Diagnostic Results: 05/24/18 13:10 05/24/18 13:10 Lab Results 05/25/18 08:15: RPR Nonreactive 05/25/18 08:15: TSH 3rd Generation 1.23 05/25/18 08:15: Triglycerides 57, Cholesterol 255 H, LDL Cholesterol Direct 126, HDL Cholesterol 79 H 05/24/18 15:10: Urine Opiates Screen Negative, Urine Methadone Screen Negative, Ur Barbiturates Screen Negative, Ur Phencyclidine Scrn Negative, Ur Amphetamines Screen Negative, U Benzodiazepines Scrn Negative, U Oth Cocaine Metabols Negative, U Cannabinoids Screen Negative 05/24/18 15:10: Urine Color Yellow, Urine Appearance Clear, Urine pH 6.0, Ur Specific [place] 1.025, Urine Protein Negative, Urine Glucose (UA) Negative, Urine Ketones 15 H, Urine Blood Negative, Urine Nitrate Negative, Urine Deacon irubin Negative, Urine Urobilinogen 0.2, Ur Leukocyte Esterase Negative 05/24/18 13:10: Alcohol, Quantitative < 10 05/24/18 13:10: Salicylates < 1 L, Acetaminophen < 10.0 L 05/24/18 13:10: Sodium 137, Potassium 4.0, Chloride 103, Carbon Dioxide 27, Anion Gap 11, BUN 17, Creatinine 0.6 L, Est GFR ( Amer) > 60, Est GFR (Non-Af Amer) > 60, Random Glucose 90, Calcium 9.5, Total Bilirubin 0.5, AST 21, ALT 14, Alkaline Phosphatase 78, Total Protein 7.3, Albumin 4.3, Globulin 3.0, Albumin/Globulin Ratio 1.4 05/24/18 13:10: WBC 6.0, RBC 4.81, Hgb 14.2, Hct 42.0, MCV 87.3, MCH 29.5, MCHC 33.8, RDW 12.4, Plt Count 253, MPV 8.8, Neut % (Auto) 70.7 H, Lymph % (Auto) 18.7 L, [place] % (Auto) 9.5 H, Eos % (Auto) 0.8 L, Baso % (Auto) 0.3, Lymph # (Auto) 1.1 L, [place] # (Auto) 0.6, Eos # (Auto) 0.1, Baso # (Auto) 0.02, Absolute Neuts (auto) 4.24 Vital Signs Temp Pulse Resp BP Pulse Ox 05/27/18 07:00 97.8 F 81 20 96/60 L 05/26/18 16:00 82 98/62 L 05/26/18 07:00 97.8 F 82 20 106/68 05/25/18 16:00 79 105/72 05/25/18 07:00 97.8 F 85 20 106/66 05/24/18 17:28 98 F 78 18 129/82 98 05/24/18 15:00 76 18 118/66 98 05/24/18 13:00 82 18 123/66 98 05/24/18 11:48 97.6 F 94 H 18 115/65 95 DSM 5 Symptoms Update: As per Dr. Person's assessment : patient is a 63 year old female, with a history of treatment resistant depression, anxiety, reportedly compliant with outpatient medications Prozac, klonopin and risperdal prescribed by at [facility] (last appointment was 05/17/18) who was BIB her sister to our ER yesterday with depression and SI to strangle herself. According to ER report, patient put a rubber band around her neck x2 days ago. Prior to her admission last month she had SI to cut her writs "I put a knife on my wrist but I didn't put pressure on it..., I am afraid to go to hell". Patient was seen today at the treatment team meeting, patient presented to be severely depressed, poor personal hygiene, looks much older than her chronological age, patient was asking questions about ECT treatment, patient said that her symptoms were severe enough that she was looking for admission and she is willing to have ECT treatment now. Patient was educated about ECT procedure, patient asked this underwriter solicitation director to contact her sister Eloina. patient also said that her symptoms were preventing her from being active, patient reported that she was feeling emotionally numb, weak, patient was staying in her bed for days, patient said that it was even difficult for her to take a shower, patient reported that she was thinking to end up her life. This underwriter solicitation director together with a medical student and pt herself gave a call to patient's sister all questions were answered, concerns addressed, medical team was called for medical clearance for ECT procedure. Thus far patient has been in good behavioral control and there were no behavioral issues over the weekend. DSM 5 Symptoms Update: Major Depression, Severe and recurrent (tx resistant) TRU Medication Change: No Medical Record Reviewed: Yes Consults ordered or reviewed: Medical consult appreciated. Mental Status Examination - Cognitive Function Orientation: Person, Place, Situation Attention: WNL Concentration: Poor Association: WNL Fund of Knowledge: WNL - Mood Mood: Depressed, Anxious - Affect Affect: Constricted - Formal Thought Process Formal Thought Process: No Impairment - Suicidal Ideation Suicidal Ideation: Yes Plan: Patient has suicidal ideations but denied any intent or plan to kill herself. - Homicidal Ideation Homicidal Ideation: No Goal/Treatment Plan - Goal/Treatment Plan Need for Continued Stay: Remain at risks for inpatient hospitalization, Severe depression anxiety, Discharge may exacerbated symptoms, Severe functional impairment Progress Toward Problem(s) and Goals/Treatment Plan: Milieu/structure/supportive therapy consultation for discharge plan and social issues Med management: Klonopin 0.25 mg 3 times a day as needed for anxiety Prozac 60 mg daily for depression and anxiety Risperdal 1 mg at the nighttime ECT treatment was discussed Sonata 5 mg at the nighttime as needed for insomnia Family involvement Follow up on labs Will monitor closely Pt was educated about risk/benefits and alternatives of medications, coping strategies (safety plan, suicide prevention), relapse prevention, importance of follow up with psychiatrist and therapist, stay away from drugs/alcohol/smoking Estimated Date of D/C: 06/04/18
--- NOTE | 2018-05-28 10:44 | CP.PCM.PN ---
<Mick Santos - Last Filed: 05/28/18 10:45> Subjective - Date & Time of Evaluation Date of Evaluation: 05/28/18 Time of Evaluation: 07:15 - Subjective Subjective: Medicine progress note: Patient seen and examined in psychiatric floor. No acute events overnight. Plan for possible ECT today. No other complaints at this time. 12 point ROS performed and negative other than stated above Objective - Vital Signs/Intake and Output Vital Signs (last 24 hours): Temp Pulse Resp BP Pulse Ox 97.6 F 76 20 120/69 98 05/28/18 07:00 05/28/18 07:00 05/28/18 07:00 05/28/18 07:00 05/24/18 17:28 - Medications Medications: Current Medications Acetaminophen (Tylenol 325mg Tab) 650 mg PO Q6H PRN PRN Reason: Pain, moderate (4-7) Al Hydrox/Mg Hydrox/Simethicone (Maalox Plus 30 Ml) 30 ml PO DAILY PRN PRN Reason: Upset Stomach Clonazepam (Klonopin) 0.25 mg PO TID PRN; Protocol PRN Reason: Anxiety Last Admin: 05/28/18 06:00 Dose: 0.25 mg Fluoxetine HCl (Prozac) 60 mg PO DAILY [facility] Last Admin: 05/28/18 09:28 Dose: 60 mg Magnesium Hydroxide (Milk Of Magnesia) 30 ml PO DAILY PRN PRN Reason: Constipation Risperidone (Risperdal Tab) 1 mg PO HS MELODY Last Admin: 05/27/18 21:13 Dose: 1 mg Zaleplon (Sonata) 5 mg PO HS PRN PRN Reason: Insomnia - Labs Labs: 05/24/18 13:10 05/24/18 13:10 - Constitutional Appears: No Acute Distress - Head Exam Head Exam: ATRAUMATIC, NORMOCEPHALIC - Eye Exam Eye Exam: EOMI - ENT Exam ENT Exam: Mucous Membranes Moist - Respiratory Exam Respiratory Exam: Clear to Ausculation Bilateral. absent: Rales, Wheezes - Cardiovascular Exam Cardiovascular Exam: REGULAR RHYTHM, +S1, +S2 - GI/Abdominal Exam GI & Abdominal Exam: Soft. absent: Tenderness - Extremities Exam Extremities Exam: absent: Calf Tenderness, Pedal Edema - Neurological Exam Neurological Exam: Alert, Awake, Oriented x3 - Psychiatric Exam Psychiatric exam: Anxious, Depressed - Skin Skin Exam: Dry, Warm Assessment and Plan - Assessment and Plan (Free Text) Assessment: 1. Elevated cholesterol 2. Major Depressive Disorder Patient may may require ECT therapy. Labwork, EKG and chest x-ray was reviewed and at this time patient is medically optimized and cleared for ECT therapy. Follow-up psychiatry recommendations. I counseled the patient regarding the imp ortance of diet and exercise for her elevated cholesterol. Continue management for her depression and suicidal ideation by psychiatry. Thank you for the consult. Please reconsult as needed. Case and plan was reviewed and discussed with Dr. Buchanan. <Merritt Buchanan - Last Filed: 05/28/18 17:39> Objective - Vital Signs/Intake and Output Vital Signs (last 24 hours): Temp Pulse Resp BP Pulse Ox 97.6 F 82 20 115/72 98 05/28/18 07:00 05/28/18 16:00 05/28/18 07:00 05/28/18 16:00 05/24/18 17:28 - Medications Medications: Current Medications Acetaminophen (Tylenol 325mg Tab) 650 mg PO Q6H PRN PRN Reason: Pain, moderate (4-7) Al Hydrox/Mg Hydrox/Simethicone (Maalox Plus 30 Ml) 30 ml PO DAILY PRN PRN Reason: Upset Stomach Clonazepam (Klonopin) 0.25 mg PO TID PRN; Protocol PRN Reason: Anxiety Last Admin: 05/28/18 15:54 Dose: 0.25 mg Fluoxetine HCl (Prozac) 60 mg PO DAILY MELODY Last Admin: 05/28/18 09:28 Dose: 60 mg Magnesium Hydroxide (Milk Of Magnesia) 30 ml PO DAILY PRN PRN Reason: Constipation Risperidone (Risperdal Tab) 1 mg PO HS MELODY Last Admin: 05/27/18 21:13 Dose: 1 mg Zaleplon (Sonata) 5 mg PO HS PRN PRN Reason: Insomnia - Labs Labs: 05/24/18 13:10 05/24/18 13:10 Assessment and Plan - Assessment and Plan (Free Text) Assessment: Pt seen and examined by me. I have reviewed the note of the director medical science and I agree with it. I have discussed the assessment and plan with the resident. I have reviewed the medications and the last labs. Pt with major depression. She is going for ECT therapy. She is optimized for her procedure. She has dyslipidemia and was advised diet and exercise.
--- NOTE | 2018-05-28 15:05 | PCM.PYCHPN ---
Psychiatric Progress Note - Psychiatric Progress Note Patient seen today, length of contact: 30 minutes Patient Chief Complaint: "promise that it will be confidential...., I put a pantyhose around my neck before coming to the hospital, I wanted to check how it would feel if I will hang myself..., but I am scared, I didn't have a courage to do it..." Problems Identified/Issues Discussed: Suicide/ homicide prevention, past psychiatric h/o, current psychiatric symptoms, medical problems, risk/benefits and alternatives of medications, medications compliance, coping strategies, substance abuse h/o, relapse prevention, importance of follow up with psychiatrist and therapist, discharge plan. Patient was also provided information about ECT treatment, risk, benefits, alt ernatives discussed. Medical Problems: Patient reported being healthy. Patient was seen by medical team for a ECT clearance, patient has high cholesterol level pt was cleared for ECT treatment tomorrow. Diagnostic Results: 05/24/18 13:10 05/24/18 13:10 Lab Results 05/25/18 08:15: RPR Nonreactive 05/25/18 08:15: TSH 3rd Generation 1.23 05/25/18 08:15: Triglycerides 57, Cholesterol 255 H, LDL Cholesterol Direct 126, HDL Cholesterol 79 H 05/24/18 15:10: Urine Opiates Screen Negative, Urine Methadone Screen Negative, Ur Barbiturates Screen Negative, Ur Phencyclidine Scrn Negative, Ur Amphetamines Screen Negative, U Benzodiazepines Scrn Negative, U Oth Cocaine Metabols Negative, U Cannabinoids Screen Negative 05/24/18 15:10: Urine Color Yellow, Urine Appearance Clear, Urine pH 6.0, Ur Specific [place] 1.025, Urine Protein Negative, Urine Glucose (UA) Negative, Urine Ketones 15 H, Urine Blood Negative, Urine Nitrate Negative, Urine Bilirubin Negative, Urine Urobilinogen 0.2, Ur Leukocyte Esterase Negative 05/24/18 13:10: Alcohol, Quantitative < 10 05/24/18 13:10: Salicylates < 1 L, Acetaminophen < 10.0 L 05/24/18 13:10: Sodium 137, Potassium 4.0, Chloride 103, Carbon Dioxide 27, Anion Gap 11, BUN 17, Creatinine 0.6 L, Est GFR ( Amer) > 60, Est GFR (Non-Af Amer) > 60, Random Glucose 90, Calcium 9.5, Total Bilirubin 0.5, AST 21, ALT 14, Alkaline Phosphatase 78, Total Protein 7.3, Albumin 4.3, Globulin 3.0, Albumin/Globulin Ratio 1.4 05/24/18 13:10: WBC 6.0, RBC 4.81, Hgb 14.2, Hct 42.0, MCV 87.3, MCH 29.5, MCHC 33.8, RDW 12.4, Plt Count 253, MPV 8.8, Neut % (Auto) 70.7 H, Lymph % (Auto) 18.7 L, [place] % (Auto) 9.5 H, Eos % (Auto) 0.8 L, Baso % (Auto) 0.3, Lymph # (Auto) 1.1 L, [place] # (Auto) 0.6, Eos # (Auto) 0.1, Baso # (Auto) 0.02, Absolute Neuts (auto) 4.24 Vital Signs Temp Pulse Resp BP Pulse Ox 05/27/18 07:00 97.8 F 81 20 96/60 L 05/26/18 16:00 82 98/62 L 05/26/18 07:00 97.8 F 82 20 106/68 05/25/18 16:00 79 105/72 05/25/18 07:00 97.8 F 85 20 106/66 05/24/18 17:28 98 F 78 18 129/82 98 05/24/18 15:00 76 18 118/66 98 05/24/18 13:00 82 18 123/66 98 05/24/18 11:48 97.6 F 94 H 18 115/65 95 Temp Pulse Resp BP Pulse Ox 97.6 F 76 20 120/69 98 05/28/18 07:00 05/28/18 07:00 05/28/18 07:00 05/28/18 07:00 05/24/18 17:28 DSM 5 Symptoms Update: patient is a 63 year old female, with a history of treatment resistant depression, anxiety, reportedly compliant with outpatient medications Prozac, klonopin and risperdal prescribed by at [facility] (last appointment was 05/17/18) who was BIB her sister to our ER yesterday with depression and SI to strangle herself. According to ER report, patient put a rubber band around her neck x2 days ago. Prior to her admission last month she had SI to cut her writs "I put a knife on my wrist but I didn't put pressure on it..., I am afraid to go to hell". Patient was seen today at the treatment team meeting, patient presented to be severely depressed, pt said that prior to come to the hospital she was thinking to jump off the building or hang self, pt said that she has no courage to do so, but at the same time pt tried to put a pantyhose around her her neck. pt reported that nothing is making her feel happy, pt reported that she is "trapped in my own body, I want to do things, but I am not able to do so". pt reported that even taking a shower it is "very difficult for me". as per staff pt trying her best to participate in unit activities, but appears to be severely depressed and disengaged. pt reported that she feels very anxious about ECT procedure, at the same time pt is willing to have it done. Thus far patient has been in good behavioral control and there were no behavioral issues over the weekend. so far pt tolerated meds well, no side effects observed or reported. AIMS 0, no EPS. DSM 5 Symptoms Update: Major Depression, Severe and recurrent (tx resistant) TRU Medication Change: No Medical Record Reviewed: Yes Consults ordered or reviewed: Medical consult appreciated. pt is cleared to have ECT. Mental Status Examination - Cognitive Function Orientation: Person, Place, Situation Attention: WNL Concentration: Poor Association: WNL Fund of Knowledge: WNL - Mood Mood: Depressed ("I am very hopeless"), Anxious - Affect Affect: Constricted - Formal Thought Process Formal Thought Process: No Impairment - Suicidal Ideation Suicidal Ideation: Yes Plan: pt still has suicidal ideation, but denied any intent or plan to kill self. - Homicidal Ideation Homicidal Ideation: No Goal/Treatment Plan - Goal/Treatment Plan Need for Continued Stay: Remain at risks for inpatient hospitalization, Severe depression anxiety, Discharge may exacerbated symptoms, Severe functional impairment Progress Toward Problem(s) and Goals/Treatment Plan: Milieu/structure/supportive therapy SW consultation for discharge plan and social issues Med management: Klonopin 0.25 mg 3 times a day as needed for anxiety Prozac 60 mg daily for depression and anxiety Risperdal 1 mg at the nighttime ECT treatment 05/29/18 9:30am Sonata 5 mg at the nighttime as needed for insomnia Family involvement Follow up on labs Will monitor closely Pt was educated about risk/benefits and alternatives of medications, coping strategies (safety plan, suicide prevention), relapse prevention, importance of follow up with psychiatrist and therapist, stay away from drugs/alcohol/smoking Estimated Date of D/C: 06/04/18
[2018-05-29] MEDS ORDERED: Ketamine 10 mg/ml Inj (20 ml) ONE (10:56)
[2018-05-29] MEDS ORDERED: Propofol 10 mg/ml Inj (20 ML) ONE (10:56)
[2018-05-29] MEDS ORDERED: Succinylcholine 200 mg/10 ml Inj IV ONE ×2 (10:57)
[2018-05-29] MEDS ORDERED: HYDROmorphone 0.5 mg/0.5 ml ISec IVP PRN ×2 (11:16→11:20)
[2018-05-29] MEDS ORDERED: Sodium Chloride 0.9% 1,000 ML IV SCH (11:30)
--- NOTE | 2018-05-29 15:09 | PCM.PYCHPN ---
Psychiatric Progress Note - Psychiatric Progress Note Patient seen today, length of contact: 30 minutes Patient Chief Complaint: "I am very scared" Problems Identified/Issues Discussed: Suicide/ homicide prevention, past psychiatric h/o, current psychiatric symptoms, medical problems, risk/benefits and alternatives of medications, medications compliance, coping strategies, substance abuse h/o, relapse prevention, importance of follow up with psychiatrist and therapist, discharge plan. Patient was also provided information about ECT treatment, risk, benefits, alternatives discussed. Medical Problems: Patient reported being healthy. Patient was seen by medical team for a ECT clearance, patient has high cholesterol level pt was cleared for ECT treatment. Diagnostic Results: 05/24/18 13:10 05/24/18 13:10 Lab Results 05/25/18 08:15: RPR Nonreactive 05/25/18 08:15: TSH 3rd Generation 1.23 05/25/18 08:15: Triglycerides 57, Cholesterol 255 H, LDL Cholesterol Direct 126, HDL Cholesterol 79 H 05/24/18 15:10: Urine Opiates Screen Negative, Urine Methadone Screen Negative, Ur Barbiturates Screen Negative, Ur Phencyclidine Scrn Negative, Ur Amphetamines Screen Negative, U Benzodiazepines Scrn Negative, U Oth Cocaine Metabols Negative, U Cannabinoids Screen Negative 05/24/18 15:10: Urine Color Yellow, Urine Appearance Clear, Urine pH 6.0, Ur Specific [place] 1.025, Urine Protein Negative, Urine Glucose (UA) Negative, Urine Ketones 15 H, Urine Blood Negative, Urine Nitrate Negative, Urine Bilirubin Negative, Urine Urobilinogen 0.2, Ur Leukocyte Esterase Negative 05/24/18 13:10: Alcohol, Quantitative < 10 05/24/18 13:10: Salicylates < 1 L, Acetaminophen < 10.0 L 05/24/18 13:10: Sodium 137, Potassium 4.0, Chloride 103, Carbon Dioxide 27, Anion Gap 11, BUN 17, Creatinine 0.6 L, Est GFR ( Amer) > 60, Est GFR (Non-Af Amer) > 60, Random Glucose 90, Calcium 9.5, Total Bilirubin 0.5, AST 21, ALT 14, Alkaline Phosphatase 78, Total Protein 7.3, Albumin 4.3, Globulin 3.0, Albumin/Globulin Ratio 1.4 05/24/18 13:10: WBC 6.0, RBC 4.81, Hgb 14.2, Hct 42.0, MCV 87.3, MCH 29.5, MCHC 33.8, RDW 12.4, Plt Count 253, MPV 8.8, Neut % (Auto) 70.7 H, Lymph % (Auto) 18.7 L, [place] % (Auto) 9.5 H, Eos % (Auto) 0.8 L, Baso % (Auto) 0.3, Lymph # (Auto) 1.1 L, [place] # (Auto) 0.6, Eos # (Auto) 0.1, Baso # (Auto) 0.02, Absolute Neuts (auto) 4.24 Vital Signs Temp Pulse Resp BP Pulse Ox 05/27/18 07:00 97.8 F 81 20 96/60 L 05/26/18 16:00 82 98/62 L 05/26/18 07:00 97.8 F 82 20 106/68 05/25/18 16:00 79 105/72 05/25/18 07:00 97.8 F 85 20 106/66 05/24/18 17:28 98 F 78 18 129/82 98 05/24/18 15:00 76 18 118/66 98 05/24/18 13:00 82 18 123/66 98 05/24/18 11:48 97.6 F 94 H 18 115/65 95 Temp Pulse Resp BP Pulse Ox 97.6 F 76 20 120/69 98 05/28/18 07:00 05/28/18 07:00 05/28/18 07:00 05/28/18 07:00 05/24/18 17:28 DSM 5 Symptoms Update: patient is a 63 year old female, with a history of treatment resistant depression, anxiety, reportedly compliant with outpatient medications Prozac, klonopin and risperdal prescribed by at [facility] (last appointment was 05/17/18) who was BIB her sister to our ER yesterday with depression and SI to strangle herself. According to ER report, patient put a rubber band around her neck x2 days ago. Prior to her admission last month she had SI to cut her writs "I put a knife on my wrist but I didn't put pressure on it..., I am afraid to go to hell". Patient was seen today at the [facility] area, pt presented to be anxious about the ECT procedure. pt was educated again., concerns addressed. pt was seen in OR later, pt's sister Eloina came to support pt, all questions answered. pt willing to get ECT, signed consent for treatment, pt was asking "what if I will not get better", this wrier assured pt that plenty of other options are available. 05/29/18 Pusle width 0.3Msec, frequencey 30Hz, duration 8.000sec, current 800mA, pt hag visible motor seizures for 52sec, but MECTA analysis showed 0% adequacy, which is very doubtful. as per anesthesiologist, succinylcoline 45mg, ketamine 20, propofol 50mg. most likely will use higher dose of succinylcholine in the future because pt was not enough paralyzed. 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 spoke to pt's sister Eloina, pt and sister were appreciative. Thus far patient has been in good behavioral control, but very depressed, yesterday pt reported that she wanted to hang self, made comment that "I know that I cannot do anything here..." so far pt tolerated meds well, no side effects observed or reported. AIMS 0, no EPS. DSM 5 Symptoms Update: Major Depression, Severe and recurrent (tx resistant) TRU Medication Change: No Medical Record Reviewed: Yes Consults ordered or reviewed: Medical consult appreciated. pt is cleared to have ECT. Mental Status Examination - Cognitive Function Orientation: Person, Place, Situation Attention: WNL Concentration: Poor Association: WNL Fund of Knowledge: WNL - Mood Mood: Depressed ("I am very hopeless"), Anxious - Affect Affect: Constricted - Formal Thought Process Formal Thought Process: No Impairment - Suicidal Ideation Suicidal Ideation: Yes - Homicidal Ideation Homicidal Ideation: No Goal/Treatment Plan - Goal/Treatment Plan Need for Continued Stay: Remain at risks for inpatient hospitalization, Severe depression anxiety, Discharge may exacerbated symptoms, Severe functional impairment Progress Toward Problem(s) and Goals/Treatment Plan: Milieu/structure/supportive therapy SW consultation for discharge plan and social issues Med management: Ciro 0.25 mg 3 times a day as needed for anxiety Prozac 60 mg daily for depression and anxiety Risperdal 1 mg at the nighttime #1 ECT treatment 05/29/18, tolerated well Sonata 5 mg at the nighttime as needed for insomnia Family involvement Follow up on labs Will monitor closely Pt was educated about risk/benefits and alternatives of medications, coping strategies (safety plan, suicide prevention), relapse prevention, importance of follow up with psychiatrist and therapist, stay away from drugs/alcohol/smoking Estimated Date of D/C: 06/04/18
[2018-05-30] MEDS ORDERED: Ketamine 10 mg/ml Inj (20 ml) ONE (10:49)
[2018-05-30] MEDS ORDERED: Propofol 10 mg/ml Inj (20 ML) ONE (10:53)
[2018-05-30] MEDS ORDERED: Succinylcholine 200 mg/10 ml Inj IV ONE (10:54)
[2018-05-30] MEDS ORDERED: Lactated Ringer's 1,000 ML IV SCH (11:30)
--- NOTE | 2018-05-30 11:42 | PCM.PYCHPN ---
Psychiatric Progress Note - Psychiatric Progress Note Patient seen today, length of contact: 30 minutes Patient Chief Complaint: "I am very scared" Problems Identified/Issues Discussed: Suicide/ homicide prevention, past psychiatric h/o, current psychiatric symptoms, medical problems, risk/benefits and alternatives of medications, medications compliance, coping strategies, substance abuse h/o, relapse prevention, importance of follow up with psychiatrist and therapist, discharge plan. Patient was also provided information about ECT treatment, risk, benefits, alternatives discussed. Medical Problems: Patient reported being healthy. Patient was seen by medical team for a ECT clearance, patient has high cholesterol level pt was cleared for ECT treatment. Diagnostic Results: 05/24/18 13:10 05/24/18 13:10 Lab Results 05/25/18 08:15: RPR Nonreactive 05/25/18 08:15: TSH 3rd Generation 1.23 05/25/18 08:15: Triglycerides 57, Cholesterol 255 H, LDL Cholesterol Direct 126, HDL Cholesterol 79 H 05/24/18 15:10: Urine Opiates Screen Negative, Urine Methadone Screen Negative, Ur Barbiturates Screen Negative, Ur Phencyclidine Scrn Negative, Ur Amphetamines Screen Negative, U Benzodiazepines Scrn Negative, U Oth Cocaine Metabols Negative, U Cannabinoids Screen Negative 05/24/18 15:10: Urine Color Yellow, Urine Appearance Clear, Urine pH 6.0, Ur Specific [place] 1.025, Urine Protein Negative, Urine Glucose (UA) Negative, Urine Ketones 15 H, Urine Blood Negative, Urine Nitrate Negative, Urine Bilirubin Negative, Urine Urobilinogen 0.2, Ur Leukocyte Esterase Negative 05/24/18 13:10: Alcohol, Quantitative < 10 05/24/18 13:10: Salicylates < 1 L, Acetaminophen < 10.0 L 05/24/18 13:10: Sodium 137, Potassium 4.0, Chloride 103, Carbon Dioxide 27, Anion Gap 11, BUN 17, Creatinine 0.6 L, Est GFR ( Amer) > 60, Est GFR (Non-Af Amer) > 60, Random Glucose 90, Calcium 9.5, Total Bilirubin 0.5, AST 21, ALT 14, Alkaline Phosphatase 78, Total Protein 7.3, Albumin 4.3, Globulin 3.0, Albumin/Globulin Ratio 1.4 05/24/18 13:10: WBC 6.0, RBC 4.81, Hgb 14.2, Hct 42.0, MCV 87.3, MCH 29.5, MCHC 33.8, RDW 12.4, Plt Count 253, MPV 8.8, Neut % (Auto) 70.7 H, Lymph % (Auto) 18.7 L, [place] % (Auto) 9.5 H, Eos % (Auto) 0.8 L, Baso % (Auto) 0.3, Lymph # (Auto) 1.1 L, [place] # (Auto) 0.6, Eos # (Auto) 0.1, Baso # (Auto) 0.02, Absolute Neuts (auto) 4.24 Vital Signs Temp Pulse Resp BP Pulse Ox 05/27/18 07:00 97.8 F 81 20 96/60 L 05/26/18 16:00 82 98/62 L 05/26/18 07:00 97.8 F 82 20 106/68 05/25/18 16:00 79 105/72 05/25/18 07:00 97.8 F 85 20 106/66 05/24/18 17:28 98 F 78 18 129/82 98 05/24/18 15:00 76 18 118/66 98 05/24/18 13:00 82 18 123/66 98 05/24/18 11:48 97.6 F 94 H 18 115/65 95 Temp Pulse Resp BP Pulse Ox 97.6 F 76 20 120/69 98 05/28/18 07:00 05/28/18 07:00 05/28/18 07:00 05/28/18 07:00 05/24/18 17:28 DSM 5 Symptoms Update: patient is a 63 year old female, with a history of treatment resistant depression, anxiety, reportedly compliant with outpatient medications Prozac, klonopin and risperdal prescribed by at [facility] (last appointment was 05/17/18) who was BIB her sister to our ER yesterday with depression and SI to strangle herself. According to ER report, patient put a rubber band around her neck x2 days ago. Prior to her admission last month she had SI to cut her writs "I put a knife on my wrist but I didn't put pressure on it..., I am afraid to go to hell". Patient was seen today at the [facility] area, pt presented to be anxious about the ECT procedure. pt was educated again., concerns addressed. pt was seen in OR later, pt's sister Eloina came to support pt, all questions answered. pt willing to get ECT, signed consent for treatment, pt has capacity to do so, pt was asking "what if I will not get better", this wrier assured pt that plenty of other options are available about MAO inhibitors, TMS. treatment #1 05/29/18 BL Pusle width 0.3Msec, frequencey 30Hz, duration 8.000sec, current 800mA, pt hag visible motor seizures for 52sec, but MECTA analysis showed 0% adequacy, which is very doubtful, but still we will adjust dose of stimuli. treatment #2 05/30/18 BL Pusle width 0.3Msec, frequencey 50Hz, duration 8.000sec, current 800mA, pt hag visible motor seizures for 1min 4sec, MECTA analysis showed 95% adequacy. succinylcoline was increased to 80mg because on 45mg pt did not have enough muscle relaxation, ketamine was increased to 30 because pt is deeply depressed, propofol 50mg. pt was seen in recovery room, pt appeared to be restless, was saying that she wants to , then she was saying "I will never get better", pt said that she is afraid that she might never improved. ativan 2mg IV push was given. Thus far patient has been in good behavioral control, but very depressed, pt is keeping everything to herself. so far pt tolerated meds well, no side effects observed or reported. AIMS 0, no EPS. DSM 5 Symptoms Update: Major Depression, Severe and recurrent (tx resistant) TRU Medication Change: No Medical Record Reviewed: Yes Consults ordered or reviewed: Medical consult appreciated. pt is cleared to have ECT. Mental Status Examination - Cognitive Function Orientation: Person, Place, Situation Attention: WNL Concentration: Poor Association: WNL Fund of Knowledge: WNL - Mood Mood: Depressed ("I am very hopeless"), Anxious - Affect Affect: Constricted - Formal Thought Process Formal Thought Process: No Impairment - Suicidal Ideation Suicidal Ideation: Yes - Homicidal Ideation Homicidal Ideation: No Goal/Treatment Plan - Goal/Treatment Plan Need for Continued Stay: Remain at risks for inpatient hospitalization, Severe depression anxiety, Discharge may exacerbated symptoms, Severe functional im pairment Progress Toward Problem(s) and Goals/Treatment Plan: Milieu/structure/supportive therapy SW consultation for discharge plan and social issues Med management: Klonopin 0.25 mg 3 times a day as needed for anxiety Prozac 60 mg daily for depression and anxiety Risperdal 1 mg at the nighttime #1 BL ECT treatment 05/29/18, tolerated well #2 BL ECT treatment 05/30/18 #3 will discussed today Sonata 5 mg at the nighttime as needed for insomnia Family involvement Follow up on labs Will monitor closely Pt was educated about risk/benefits and alternatives of medications, coping strategies (safety plan, suicide prevention), relapse prevention, importance of follow up with psychiatrist and therapist, stay away from drugs/alcohol/smoking Estimated Date of D/C: 06/06/18
--- NOTE | 2018-05-30 17:35 | CON ---
DATE: 05/30/2018 NEUROLOGY CONSULTATION CHIEF COMPLAINT: I will evaluate for dizziness and unsteady gait. HISTORY OF PRESENT ILLNESS: This is a 63-year-old woman with past medical history of depression who came in for suicidal ideation and resistant depression and anxiety, therefore underwent ECT x2, felt light headed after the fact. Also was n.p.o. prior to the ECT and had some dizziness which was lightheadedness rather than spinning sensation of the room. Gait is slightly wide based, but Romberg is negative, and she is mildly deconditioned as well. At this time, we recommend a CAT scan of the head and vitamin B12 level and recommend fluid hydration throughout the day with p.o. cups of water. No focal weakness seen in all extremities. PAST MEDICAL HISTORY: As above. SOCIAL HISTORY: No illicit drug use, smoking, or EtOH abuse. REVIEW OF SYSTEMS: A 14-point review of systems is negative except as per HPI. ALLERGIES: NO KNOWN DRUG ALLERGIES. MEDICATIONS: Reviewed by nurse's reconciliation sheet. FAMILY HISTORY: Noncontributory LABORATORY DATA: No new labs done today. PHYSICAL EXAMINATION GENERAL: The patient is seen up in bed and in no acute distress. VITAL SIGNS: Temperature of 98, pulse rate of 89, blood pressure 117/53, respiratory rate 20, and oxygen saturation 99% by room air. HEENT: Atraumatic and normocephalic. PERRLA. Extraocular muscles are intact. NECK: Supple. No JVD. No adenopathy noted. LUNGS: Clear to auscultation. No adventitious sounds. HEART: S1 and S2. Normal rate and rhythm. No murmurs, rubs or gallops. ABDOMEN: Soft, nontender, and nondistended. Bowel sounds are present. EXTREMITIES: No clubbing. No cyanosis. Peripheral pulses 2+ felt bilaterally. NEUROLOGIC: The patient is alert, oriented to person, place, month, and year. Speech is fluent without any errors. Cranial nerves II through XII are intact. Motor exam; moves all extremities equally. No pronator drift seen. Sensory; light touch and pinprick, proprioception, and vibration are intact. DTRs are 2+ in one at both knees and ankles. Coordination; [id number] is intact. No dysmetria noted. She has a very flat affect. IMPRESSION: Dizziness is likely secondary to postural hypotension from decreased p.o. intake. RECOMMENDATIONS: 1. P.o. fluids throughout the day. 2. Avoid sudden movements. 3. PT/OT as an outpatient for gait and balance exercises. 4. B12 level injection could be given 1000 mcg x1 dose. 5. CAT scan of the head to suss out any acute intracranial abnormalities. Continue with ECT protocol. Thank you for this consult. Barry Patino MD
[2018-05-31] MEDS ORDERED: Ketamine 10 mg/ml Inj (20 ml) ONE (10:58)
[2018-05-31] MEDS ORDERED: Succinylcholine 200 mg/10 ml Inj IV ONE (11:01)
[2018-05-31] MEDS ORDERED: Propofol 10 mg/ml Inj (20 ML) ONE (11:01)
--- NOTE | 2018-05-31 11:04 | CT ---
Date of service: 05/31/2018 PROCEDURE: CT HEAD WITHOUT CONTRAST. HISTORY: dizziness COMPARISON: None available. TECHNIQUE: Axial computed tomography images were obtained through the head/brain without intravenous contrast. Radiation dose: Total exam DLP = 969.64 mGy-cm. This CT exam was performed using one or more of the following dose reduction techniques: Automated exposure control, adjustment of the mA and/or kV according to patient size, and/or use of iterative reconstruction technique. FINDINGS: HEMORRHAGE: No intracranial hemorrhage. BRAIN: No mass effect or edema. No atrophy or chronic microvascular ischemic changes. VENTRICLES: Unremarkable. No hydrocephalus. CALVARIUM: Unremarkable. PARANASAL SINUSES: Unremarkable as visualized. No significant inflammatory changes. MASTOID AIR CELLS: Unremarkable as visualized. No inflammatory changes. OTHER FINDINGS: None. IMPRESSION: Normal CT of the Head.
[2018-05-31] MEDS ORDERED: Midazolam 2 MG/2 ML VIAL IVP ONE (11:27)
[2018-05-31] MEDS ORDERED: Lactated Ringer's 1,000 ML IV SCH (11:30)
--- NOTE | 2018-05-31 11:36 | PCM.PYCHPN ---
Psychiatric Progress Note - Psychiatric Progress Note Patient seen today, length of contact: 30 minutes Patient Chief Complaint: "I am very scared" Problems Identified/Issues Discussed: Suicide/ homicide prevention, past psychiatric h/o, current psychiatric symptoms, medical problems, risk/benefits and alternatives of medications, medications compliance, coping strategies, substance abuse h/o, relapse prevention, importance of follow up with psychiatrist and therapist, discharge plan. Patient was also provided information about ECT treatment, risk, benefits, alternatives discussed. Medical Problems: Patient reported being healthy. Patient was seen by medical team for a ECT clearance, patient has high cholesterol level pt was cleared for ECT treatment. Diagnostic Results: 05/24/18 13:10 05/24/18 13:10 Lab Results 05/25/18 08:15: RPR Nonreactive 05/25/18 08:15: TSH 3rd Generation 1.23 05/25/18 08:15: Triglycerides 57, Cholesterol 255 H, LDL Cholesterol Direct 126, HDL Cholesterol 79 H 05/24/18 15:10: Urine Opiates Screen Negative, Urine Methadone Screen Negative, Ur Barbiturates Screen Negative, Ur Phencyclidine Scrn Negative, Ur Amphetamines Screen Negative, U Benzodiazepines Scrn Negative, U Oth Cocaine Metabols Negative, U Cannabinoids Screen Negative 05/24/18 15:10: Urine Color Yellow, Urine Appearance Clear, Urine pH 6.0, Ur Specific [place] 1.025, Urine Protein Negative, Urine Glucose (UA) Negative, Urine Ketones 15 H, Urine Blood Negative, Urine Nitrate Negative, Urine Bilirubin Negative, Urine Urobilinogen 0.2, Ur Leukocyte Esterase Negative 05/24/18 13:10: Alcohol, Quantitative < 10 05/24/18 13:10: Salicylates < 1 L, Acetaminophen < 10.0 L 05/24/18 13:10: Sodium 137, Potassium 4.0, Chloride 103, Carbon Dioxide 27, Anion Gap 11, BUN 17, Creatinine 0.6 L, Est GFR ( Amer) > 60, Est GFR (Non-Af Amer) > 60, Random Glucose 90, Calcium 9.5, Total Bilirubin 0.5, AST 21, ALT 14, Alkaline Phosphatase 78, Total Protein 7.3, Albumin 4.3, Globulin 3.0, Albumin/Globulin Ratio 1.4 05/24/18 13:10: WBC 6.0, RBC 4.81, Hgb 14.2, Hct 42.0, MCV 87.3, MCH 29.5, MCHC 33.8, RDW 12.4, Plt Count 253, MPV 8.8, Neut % (Auto) 70.7 H, Lymph % (Auto) 18.7 L, [place] % (Auto) 9.5 H, Eos % (Auto) 0.8 L, Baso % (Auto) 0.3, Lymph # (Auto) 1.1 L, [place] # (Auto) 0.6, Eos # (Auto) 0.1, Baso # (Auto) 0.02, Absolute Neuts (auto) 4.24 Vital Signs Temp Pulse Resp BP Pulse Ox 05/27/18 07:00 97.8 F 81 20 96/60 L 05/26/18 16:00 82 98/62 L 05/26/18 07:00 97.8 F 82 20 106/68 05/25/18 16:00 79 105/72 05/25/18 07:00 97.8 F 85 20 106/66 05/24/18 17:28 98 F 78 18 129/82 98 05/24/18 15:00 76 18 118/66 98 05/24/18 13:00 82 18 123/66 98 05/24/18 11:48 97.6 F 94 H 18 115/65 95 Temp Pulse Resp BP Pulse Ox 97.6 F 76 20 120/69 98 05/28/18 07:00 05/28/18 07:00 05/28/18 07:00 05/28/18 07:00 05/24/18 17:28 DSM 5 Symptoms Update: patient is a 63 year old female, with a history of treatment resistant depression, anxiety, reportedly compliant with outpatient medications Prozac, klonopin and risperdal prescribed by at [facility] (last appointment was 05/17/18) who was BIB her sister to our ER yesterday with depression and SI to strangle herself. According to ER report, patient put a rubber band around her neck x2 days ago. Prior to her admission last month she had SI to cut her writs "I put a knife on my wrist but I didn't put pressure on it..., I am afraid to go to hell". pt was seen in OR, pt's sister Eloina came to support pt, as per sister "Norah sounded better yesterday over the phone, now she is more relaxed, I think she is improving". as per pt "I was feeling better yesterday after the ECT, now I feel the same..", pt reported that she feels hopeless and "I am afraid that I will never get better, ever.", pt is willing to get ECT treatment, signed consent, pt has capacity to do so. treatment #1 05/29/18 BL Pusle width 0.3Msec, frequencey 30Hz, duration 8.000sec, current 800mA, pt hag visible motor seizures for 52sec, but MECTA analysis showed 0% adequacy, which is very doubtful, but still we will adjust dose of stimuli. treatment #2 05/30/18 BL Pusle width 0.3Msec, frequencey 50Hz, duration 8.000sec, current 800mA, pt hag visible motor seizures for 1min 4sec, MECTA analysis showed 95% adequacy. succinylcoline was increased to 80mg because on 45mg pt did not have enough muscle relaxation, ketamine was increased to 30 because pt is deeply depressed, propofol 50mg. treatment #3 05/31/18 BL Pusle width 0.3Msec, frequencey 50Hz, duration 8.000sec, current 800mA, pt had visible motor seizures for 36seconds, MECTA analysis showed 95% adequacy. succinylcoline 80mg with good muscle relaxation, ketamine was increased to 40 because pt is deeply depressed, propofol 50mg. pt tolerated procedure well, woke up was talking that "I am alright, I am alright." pt has tendency of agitation after the procedure, RNs were advised to give Ativan 2mg IV push for restlessness/agitation. as epr staff patient has been in good behavioral control, but very depressed, pt is keeping everything to herself. so far pt tolerated meds well, no side effects observed or reported. AIMS 0, no EPS. DSM 5 Symptoms Update: Major Depression, Severe and recurrent (tx resistant) TRU Medication Change: No (pt is on ECT treatment) Medical Record Reviewed: Yes Consults ordered or reviewed: Medical consult appreciated. pt is cleared to have ECT. Mental Status Examination - Cognitive Function Orientation: Person, Place, Situation Attention: WNL Concentration: Poor Association: WNL Fund of Knowledge: WNL - Mood Mood: Depressed ("I am scared, what if I will never get better"), Anxious - Affect Affect: Constricted - Formal Thought Process Formal Thought Process: No Impairment - Suicidal Ideation Suicidal Ideation: Yes Plan: but denied intent or plan to harm self or others. - Homicidal Ideation Homicidal Ideation: No Goal/Treatment Plan - Goal/Treatment Plan Need for Continued Stay: Remain at risks for inpatient hospitalization, Severe depression anxiety, Discharge may exacerbated symptoms, Severe functional impairment Progress Toward Problem(s) and Goals/Treatment Plan: Milieu/structure/supportive therapy SW consultation for discharge plan and social issues Med management: Klonopin 0.25 mg 3 times a day as needed for anxiety Prozac 60 mg daily for depression and anxiety Risperdal 1 mg at the nighttime #1 BL ECT treatment 05/29/18, tolerated well #2 BL ECT treatment 05/30/18 #3 BL ECT treatment 05/31/18 #4 BL ECT treatment 06/03/18 [place] 5 mg at the nighttime as needed for insomnia Family involvement Follow up on labs Will monitor closely Pt was educated about risk/benefits and alternatives of medications, coping strategies (safety plan, suicide prevention), relapse prevention, importance of follow up with psychiatrist and therapist, stay away from drugs/alcohol/smoking Estimated Date of D/C: 06/06/18
--- NOTE | 2018-06-01 09:15 | PCM.PYCHPN ---
Psychiatric Progress Note - Psychiatric Progress Note Patient seen today, length of contact: 30 minutes Problems Identified/Issues Discussed: I reviewed recent notes and met with patient at bedside this morning. She appears groomed, coherent and cooperative. Alert and well-oriented to month, year, location and circumstances. Patient that mood remains depressed, largely unchanged since admission. Affect remains constricted. Denies AVH, SI. Thus far she is tolerating her medications and denies any new discomfort or pain. Thus far patient has been in good behavioral control and there were no behavioral issues over the weekend thus far. Diagnostic Results: Major Depression, Severe and recurrent (tx resistant) TRU Medication Change: No (pt is on ECT treatment) Medical Record Reviewed: Yes Mental Status Examination - Cognitive Function Orientation: Person, Place, Situation Attention: WNL Concentration: Poor Association: WNL Fund of Knowledge: WNL - Mood Mood: Depressed ("I am scared, what if I will never get better"), Anxious - Affect Affect: Constricted - Formal Thought Process Formal Thought Process: No Impairment - Suicidal Ideation Suicidal Ideation: No - Homicidal Ideation Homicidal Ideation: No Goal/Treatment Plan - Goal/Treatment Plan Need for Continued Stay: Remain at risks for inpatient hospitalization, Severe depression anxiety, Discharge may exacerbated symptoms, Severe functional impairment Progress Toward Problem(s) and Goals/Treatment Plan: * c/w current tx and plan (including ECT for tx resistant depression) * Vitals reviewed and noted below: Selected Entries 06/01/18 07:00 Temperature 98.2 F Pulse Rate 73 Respiratory 20 Rate Blood Pressure 109/58 L ER LABS AND STUDIES cxr: wnl ekg normal sinus rhythm at 78 bpm normal axis no ST elevations left bundle branch block. unchanged from previous EKG. ADMISSION LABS 05/25/18 05/25/18 05/25/18 08:15 08:15 08:15 Triglycerides 57 Cholesterol 255 H LDL Cholesterol Direct 126 HDL Cholesterol 79 H TSH 3rd Generation 1.23 RPR Nonreactive Laboratory Tests 05/24/18 05/24/18 05/24/18 13:10 13:10 13:10 WBC 6.0 RBC 4.81 Hgb 14.2 Hct 42.0 MCV 87.3 MCH 29.5 MCHC 33.8 RDW 12.4 Plt Count 253 MPV 8.8 Neut % (Auto) 70.7 H Lymph % (Auto) 18.7 L [place] % (Auto) 9.5 H Eos % (Auto) 0.8 L Baso % (Auto) 0.3 Lymph # (Auto) 1.1 L [place] # (Auto) 0.6 Eos # (Auto) 0.1 Baso # (Auto) 0.02 Absolute Neuts (auto) 4.24 Sodium 137 Potassium 4.0 Chloride 103 Carbon Dioxide 27 Anion Gap 11 BUN 17 Creatinine 0.6 L Est GFR ( Amer) > 60 Est GFR (Non-Af Amer) > 60 Random Glucose 90 Calcium 9.5 Total Bilirubin 0.5 AST 21 ALT 14 Alkaline Phosphatase 78 Total Protein 7.3 Albumin 4.3 Globulin 3.0 Albumin/Globulin Ratio 1.4 Triglycerides Cholesterol LDL Cholesterol Direct HDL Cholesterol TSH 3rd Generation Urine Color Urine Appearance Urine pH Ur Specific [place] Urine Protein Urine Glucose (UA) Urine Ketones Urine Blood Urine Nitrate Urine Bilirubin Urine Urobilinogen Ur Leukocyte Esterase Salicylates < 1 L Urine Opiates Screen Urine Methadone Screen Acetaminophen < 10.0 L Ur Barbiturates Screen Ur Phencyclidine Scrn Ur Amphetamines Screen U Benzodiazepines Scrn U Oth Cocaine Metabols U Cannabinoids Screen Alcohol, Quantitative 05/24/18 05/24/18 05/24/18 13:10 15:10 15:10 WBC RBC Hgb Hct MCV MCH MCHC RDW Plt Count MPV Neut % (Auto) Lymph % (Auto) [place] % (Auto) Eos % (Auto) Baso % (Auto) Lymph # (Auto) [place] # (Auto) Eos # (Auto) Baso # (Auto) Absolute Neuts (auto) Sodium Potassium Chloride Carbon Dioxide Anion Gap BUN Creatinine Est GFR ( Amer) Est GFR (Non-Af Amer) Random Glucose Calcium Total Bilirubin AST ALT Alkaline Phosphatase Total Protein Albumin Globulin Albumin/Globulin Ratio Triglycerides Cholesterol LDL Cholesterol Direct HDL Cholesterol TSH 3rd Generation Urine Color Yellow Urine Appearance Clear Urine pH 6.0 Ur Specific [place] 1.025 Urine Protein Negative Urine Glucose (UA) Negative Urine Ketones 15 H Urine Blood Negative Urine Nitrate Negative Urine Bilirubin Negative Urine Urobilinogen 0.2 Ur Leukocyte Esterase Negative Salicylates Urine Opiates Screen Negative Urine Methadone Screen Negative Acetaminophen Ur Barbiturates Screen Negative Ur Phencyclidine Scrn Negative Ur Amphetamines Screen Negative U Benzodiazepines Scrn Negative U Oth Cocaine Metabols Negative U Cannabinoids Screen Negative Alcohol, Quantitative < 10 05/25/18 05/25/18 08:15 08:15 WBC RBC Hgb Hct MCV MCH MCHC RDW Plt Count MPV Neut % (Auto) Lymph % (Auto) [place] % (Auto) Eos % (Auto) Baso % (Auto) Lymph # (Auto) [place] # (Auto) Eos # (Auto) Baso # (Auto) Absolute Neuts (auto) Sodium Potassium Chloride Carbon Dioxide Anion Gap BUN Creatinine Est GFR ( Amer) Est GFR (Non-Af Amer) Random Glucose Calcium Total Bilirubin AST ALT Alkaline Phosphatase Total Protein Albumin Globulin Albumin/Globulin Ratio Triglycerides 57 Cholesterol 255 H LDL Cholesterol Direct 126 HDL Cholesterol 79 H TSH 3rd Generation 1.23 Urine Color Urine Appearance Urine pH Ur Specific [place] Urine Protein Urine Glucose (UA) Urine Ketones Urine Blood Urine Nitrate Urine Bilirubin Urine Urobilinogen Ur Leukocyte Esterase Salicylates Urine Opiates Screen Urine Methadone Screen Acetaminophen Ur Barbiturates Screen Ur Phencyclidine Scrn Ur Amphetamines Screen U Benzodiazepines Scrn U Oth Cocaine Metabols U Cannabinoids Screen Alcohol, Quantitative Estimated Date of D/C: 06/06/18
--- NOTE | 2018-06-02 08:56 | PCM.PYCHPN ---
Psychiatric Progress Note - Psychiatric Progress Note Patient seen today, length of contact: 30 minutes Problems Identified/Issues Discussed: I reviewed recent notes and met with patient at bedside this morning. She appears groomed, coherent and cooperative. Alert and well-oriented to month, ye ar, location and circumstances. Patient that mood remains depressed, largely unchanged since admission. Affect remains constricted. Denies AVH, SI. Thus far she is tolerating her medications and denies any new discomfort or pain. Thus far patient has been in good behavioral control and there were no behavioral issues over the weekend thus far. Diagnostic Results: Major Depression, Severe and recurrent (tx resistant) TRU Medication Change: No (pt is on ECT treatment) Medical Record Reviewed: Yes Mental Status Examination - Cognitive Function Orientation: Person, Place, Situation Attention: WNL Concentration: Poor Association: WNL Fund of Knowledge: WNL - Mood Mood: Depressed ("I am scared, what if I will never get better"), Anxious - Affect Affect: Constricted - Formal Thought Process Formal Thought Process: No Impairment - Suicidal Ideation Suicidal Ideation: No - Homicidal Ideation Homicidal Ideation: No Goal/Treatment Plan - Goal/Treatment Plan Need for Continued Stay: Remain at risks for inpatient hospitalization, Severe depression anxiety, Discharge may exacerbated symptoms, Severe functional impairment Progress Toward Problem(s) and Goals/Treatment Plan: * c/w current tx and plan (including ECT for tx resistant depression) * Vitals reviewed and noted below: Selected Entries 06/01/18 06/01/18 07:00 16:00 Temperature 98.2 F Pulse Rate 73 75 Respiratory 20 Rate Blood Pressure 109/58 L 100/57 L ER LABS AND STUDIES cxr: wnl ekg normal sinus rhythm at 78 bpm normal axis no ST elevations left bundle branch block. unchanged from previous EKG. ADMISSION LABS 05/25/18 05/25/18 05/25/18 08:15 08:15 08:15 Triglycerides 57 Cholesterol 255 H LDL Cholesterol Direct 126 HDL Cholesterol 79 H TSH 3rd Generation 1.23 RPR Nonreactive Laboratory Tests 05/24/18 05/24/18 05/24/18 13:10 13:10 13:10 WBC 6.0 RBC 4.81 Hgb 14.2 Hct 42.0 MCV 87.3 MCH 29.5 MCHC 33.8 RDW 12.4 Plt Count 253 MPV 8.8 Neut % (Auto) 70.7 H Lymph % (Auto) 18.7 L [place] % (Auto) 9.5 H Eos % (Auto) 0.8 L Baso % (Auto) 0.3 Lymph # (Auto) 1.1 L [place] # (Auto) 0.6 Eos # (Auto) 0.1 Baso # (Auto) 0.02 Absolute Neuts (auto) 4.24 Sodium 137 Potassium 4.0 Chloride 103 Carbon Dioxide 27 Anion Gap 11 BUN 17 Creatinine 0.6 L Est GFR ( Amer) > 60 Est GFR (Non-Af Amer) > 60 Random Glucose 90 Calcium 9.5 Total Bilirubin 0.5 AST 21 ALT 14 Alkaline Phosphatase 78 Total Protein 7.3 Albumin 4.3 Globulin 3.0 Albumin/Globulin Ratio 1.4 Triglycerides Cholesterol LDL Cholesterol Direct HDL Cholesterol TSH 3rd Generation Urine Color Urine Appearance Urine pH Ur Specific [place] Urine Protein Urine Glucose (UA) Urine Ketones Urine Blood Urine Nitrate Urine Bilirubin Urine Urobilinogen Ur Leukocyte Esterase Salicylates < 1 L Urine Opiates Screen Urine Methadone Screen Acetaminophen < 10.0 L Ur Barbiturates Screen Ur Phencyclidine Scrn Ur Amphetamines Screen U Benzodiazepines Scrn U Oth Cocaine Metabols U Cannabinoids Screen Alcohol, Quantitative 05/24/18 05/24/18 05/24/18 13:10 15:10 15:10 WBC RBC Hgb Hct MCV MCH MCHC RDW Plt Count MPV Neut % (Auto) Lymph % (Auto) [place] % (Auto) Eos % (Auto) Baso % (Auto) Lymph # (Auto) [place] # (Auto) Eos # (Auto) Baso # (Auto) Absolute Neuts (auto) Sodium Potassium Chloride Carbon Dioxide Anion Gap BUN Creatinine Est GFR ( Amer) Est GFR (Non-Af Amer) Random Glucose Calcium Total Bilirubin AST ALT Alkaline Phosphatase Total Protein Albumin Globulin Albumin/Globulin Ratio Triglycerides Cholesterol LDL Cholesterol Direct HDL Cholesterol TSH 3rd Generation Urine Color Yellow Urine Appearance Clear Urine pH 6.0 Ur Specific [place] 1.025 Urine Protein Negative Urine Glucose (UA) Negative Urine Ketones 15 H Urine Blood Negative Urine Nitrate Negative Urine Bilirubin Negative Urine Urobilinogen 0.2 Ur Leukocyte Esterase Negative Salicylates Urine Opiates Screen Negative Urine Methadone Screen Negative Acetaminophen Ur Barbiturates Screen Negative Ur Phencyclidine Scrn Negative Ur Amphetamines Screen Negative U Benzodiazepines Scrn Negative U Oth Cocaine Metabols Negative U Cannabinoids Screen Negative Alcohol, Quantitative < 10 02/16/19 02/16/19 08:15 08:15 WBC RBC Hgb Hct MCV MCH MCHC RDW Plt Count MPV Neut % (Auto) Lymph % (Auto) [place] % (Auto) Eos % (Auto) Baso % (Auto) Lymph # (Auto) [place] # (Auto) Eos # (Auto) Baso # (Auto) Absolute Neuts (auto) Sodium Potassium Chloride Carbon Dioxide Anion Gap BUN Creatinine Est GFR ( Amer) Est GFR (Non-Af Amer) Random Glucose Calcium Total Bilirubin AST ALT Alkaline Phosphatase Total Protein Albumin Globulin Albumin/Globulin Ratio Triglycerides 57 Cholesterol 255 H LDL Cholesterol Direct 126 HDL Cholesterol 79 H TSH 3rd Generation 1.23 Urine Color Urine Appearance Urine pH Ur Specific [place] Urine Protein Urine Glucose (UA) Urine Ketones Urine Blood Urine Nitrate Urine Bilirubin Urine Urobilinogen Ur Leukocyte Esterase Salicylates Urine Opiates Screen Urine Methadone Screen Acetaminophen Ur Barbiturates Screen Ur Phencyclidine Scrn Ur Amphetamines Screen U Benzodiazepines Scrn U Oth Cocaine Metabols U Cannabinoids Screen Alcohol, Quantitative Estimated Date of D/C: 06/06/18
[2018-06-03] MEDS ORDERED: Ketamine 10 mg/ml Inj (20 ml) ONE (10:17)
[2018-06-03] MEDS ORDERED: Propofol 10 mg/ml Inj (20 ML) ONE (10:18)
--- NOTE | 2018-06-03 10:48 | PCM.PYCHPN ---
Psychiatric Progress Note - Psychiatric Progress Note Patient seen today, length of contact: 30 minutes Patient Chief Complaint: "I feel little better, over the weekend I think I was feeling slightly better" Problems Identified/Issues Discussed: Suicide/ homicide prevention, past psychiatric h/o, current psychiatric symptoms, medical problems, risk/benefits and alternatives of medications, medications compliance, coping strategies, substance abuse h/o, relapse prevention, importance of follow up with psychiatrist and therapist, discharge plan. Patient was also provided information about ECT treatment, risk, benefits, alternatives discussed. Medical Problems: Patient reported being healthy. Patient was seen by medical team for a ECT clearance, patient has high cholesterol level pt was cleared for ECT treatment. Diagnostic Results: 05/24/18 13:10 05/24/18 13:10 Lab Results 05/25/18 08:15: RPR Nonreactive 05/25/18 08:15: TSH 3rd Generation 1.23 05/25/18 08:15: Triglycerides 57, Cholesterol 255 H, LDL Cholesterol Direct 126, HDL Cholesterol 79 H 05/24/18 15:10: Urine Opiates Screen Negative, Urine Methadone Screen Negative, Ur Barbiturates Screen Negative, Ur Phencyclidine Scrn Negative, Ur Amphetamines Screen Negative, U Benzodiazepines Scrn Negative, U Oth Cocaine Metabols Negative, U Cannabinoids Screen Negative 05/24/18 15:10: Urine Color Yellow, Urine Appearance Clear, Urine pH 6.0, Ur Specific [place] 1.025, Urine Protein Negative, Urine Glucose (UA) Negative, Urine Ketones 15 H, Urine Blood Negative, Urine Nitrate Negative, Urine Bilir ubin Negative, Urine Urobilinogen 0.2, Ur Leukocyte Esterase Negative 05/24/18 13:10: Alcohol, Quantitative < 10 05/24/18 13:10: Salicylates < 1 L, Acetaminophen < 10.0 L 05/24/18 13:10: Sodium 137, Potassium 4.0, Chloride 103, Carbon Dioxide 27, Anion Gap 11, BUN 17, Creatinine 0.6 L, Est GFR ( Amer) > 60, Est GFR (Non-Af Amer) > 60, Random Glucose 90, Calcium 9.5, Total Bilirubin 0.5, AST 21, ALT 14, Alkaline Phosphatase 78, Total Protein 7.3, Albumin 4.3, Globulin 3.0, Albumin/Globulin Ratio 1.4 05/24/18 13:10: WBC 6.0, RBC 4.81, Hgb 14.2, Hct 42.0, MCV 87.3, MCH 29.5, MCHC 33.8, RDW 12.4, Plt Count 253, MPV 8.8, Neut % (Auto) 70.7 H, Lymph % (Auto) 18.7 L, [place] % (Auto) 9.5 H, Eos % (Auto) 0.8 L, Baso % (Auto) 0.3, Lymph # (Auto) 1.1 L, [place] # (Auto) 0.6, Eos # (Auto) 0.1, Baso # (Auto) 0.02, Absolute Neuts (auto) 4.24 Vital Signs Temp Pulse Resp BP Pulse Ox 05/27/18 07:00 97.8 F 81 20 96/60 L 05/26/18 16:00 82 98/62 L 05/26/18 07:00 97.8 F 82 20 106/68 05/25/18 16:00 79 105/72 05/25/18 07:00 97.8 F 85 20 106/66 05/24/18 17:28 98 F 78 18 129/82 98 05/24/18 15:00 76 18 118/66 98 05/24/18 13:00 82 18 123/66 98 05/24/18 11:48 97.6 F 94 H 18 115/65 95 Temp Pulse Resp BP Pulse Ox 97.6 F 76 20 120/69 98 05/28/18 07:00 05/28/18 07:00 05/28/18 07:00 05/28/18 07:00 05/24/18 17:28 DSM 5 Symptoms Update: patient is a 63 year old female, with a history of treatment resistant depression, anxiety, reportedly compliant with outpatient medications Prozac, klonopin and risperdal prescribed by at [facility] (last appointment was 05/17/18) who was BIB her sister to our ER yesterday with depression and SI to strangle herself. According to ER report, patient put a rubber band around her neck x2 days ago. Prior to her admission last month she had SI to cut her writs "I put a knife on my wrist but I didn't put pressure on it..., I am afraid to go to hell". pt was seen in OR, pt's sister Eloina came to support pt, as per sister "I think she looks little less anxious". as per pt "over the weekend I was feeling sl ightly better", pt is willing to get ECT treatment, signed consent, pt has capacity to do so. treatment #1 05/29/18 BL Pusle width 0.3Msec, frequencey 30Hz, duration 8.000sec, current 800mA, pt hag visible motor seizures for 52sec, but MECTA analysis showed 0% adequacy, which is very doubtful, but still we will adjust dose of stimuli. treatment #2 05/30/18 BL Pusle width 0.3Msec, frequencey 50Hz, duration 8.000sec, current 800mA, pt hag visible motor seizures for 1min 4sec, MECTA analysis showed 95% adequacy. succinylcoline was increased to 80mg because on 45mg pt did not have enough muscle relaxation, ketamine was increased to 30 because pt is deeply depressed, propofol 50mg. treatment #3 05/31/18 BL Pusle width 0.3Msec, frequencey 50Hz, duration 8.000sec, current 800mA, pt had visible motor seizures for 36seconds, MECTA analysis showed 95% adequacy. succinylcoline 80mg with good muscle relaxation, ketamine was increased to 40 because pt is deeply depressed, propofol 50mg. treatment #4 06/03/18 BL Pusle width 0.3Msec, frequencey 50Hz, duration 8.000sec, current 800mA, pt had visible motor seizures for 31seconds, MECTA analysis showed 94% adequacy. succinylcoline 80mg with good muscle relaxation, ketamine 40 mg, propofol 50mg. as per RN last ECT pt did not required ativan IVP. pt was calm and not agitated. as per staff patient has been in good behavioral control over the weekend, but very depressed, self isolating, prefers to be alone, pt is keeping everything to herself. so far pt tolerated meds well, no side effects observed or reported. AIMS 0, no EPS. DSM 5 Symptoms Update: Major Depression, Severe and recurrent (tx resistant) TRU Medication Change: No (pt is on ECT treatment) Medical Record Reviewed: Yes Mental Status Examination - Cognitive Function Orientation: Person, Place, Situation Attention: WNL Concentration: Poor Association: WNL Fund of Knowledge: WNL - Mood Mood: Depressed ("I think I was feeling slightly better"), Anxious - Affect Affect: Constricted - Formal Thought Process Formal Thought Process: No Impairment - Suicidal Ideation Suicidal Ideation: No - Homicidal Ideation Homicidal Ideation: No Goal/Treatment Plan - Goal/Treatment Plan Need for Continued Stay: Remain at risks for inpatient hospitalization, Severe depression anxiety, Discharge may exacerbated symptoms, Severe functional impairment Progress Toward Problem(s) and Goals/Treatment Plan: Milieu/structure/supportive therapy consultation for discharge plan and social issues Med management: Klonopin 0.25 mg 3 times a day as needed for anxiety Prozac 60 mg daily for depression and anxiety Risperdal 1 mg at the nighttime #1 BL ECT treatment 05/29/18, tolerated well #2 BL ECT treatment 05/30/18 #3 BL ECT treatment 05/31/18 #4 BL ECT treatment 06/03/18, tolerated well #5 BL ECT treatment 06/04/18, 9:30am Sonata 5 mg at the nighttime as needed for insomnia Family involvement Follow up on labs Will monitor closely Pt was educated about risk/benefits and alternatives of medications, coping strategies (safety plan, suicide prevention), relapse prevention, importance of follow up with psychiatrist and therapist, stay away from drugs/alcohol/smoking Estimated Date of D/C: 06/06/18
[2018-06-03] MEDS ORDERED: Sodium Chloride 0.9% 1,000 ML IV SCH (11:00)
[2018-06-04] MEDS ORDERED: Propofol 10 mg/ml Inj (20 ML) ONE (09:32)
[2018-06-04] MEDS ORDERED: Succinylcholine 200 mg/10 ml Inj IV ONE (09:50)
[2018-06-04] MEDS ORDERED: Lactated Ringer's 1,000 ML IV SCH (10:00)
--- NOTE | 2018-06-04 14:07 | PCM.PYCHPN ---
Psychiatric Progress Note - Psychiatric Progress Note Patient seen today, length of contact: 30 minutes Patient Chief Complaint: "I feel little better, not in that dark place anymore..." Problems Identified/Issues Discussed: Suicide/ homicide prevention, past psychiatric h/o, current psychiatric symptoms, medical problems, risk/benefits and alternatives of medications, med ications compliance, coping strategies, substance abuse h/o, relapse prevention, importance of follow up with psychiatrist and therapist, discharge plan. Patient was also provided information about ECT treatment, risk, benefits, alternatives discussed. Medical Problems: Patient reported being healthy. Patient was seen by medical team for a ECT clearance, patient has high cholesterol level pt was cleared for ECT treatment. Diagnostic Results: 05/24/18 13:10 05/24/18 13:10 Lab Results 05/25/18 08:15: RPR Nonreactive 05/25/18 08:15: TSH 3rd Generation 1.23 05/25/18 08:15: Triglycerides 57, Cholesterol 255 H, LDL Cholesterol Direct 126, HDL Cholesterol 79 H 05/24/18 15:10: Urine Opiates Screen Negative, Urine Methadone Screen Negative, Ur Barbiturates Screen Negative, Ur Phencyclidine Scrn Negative, Ur Amphetamines Screen Negative, U Benzodiazepines Scrn Negative, U Oth Cocaine Metabols Negative, U Cannabinoids Screen Negative 05/24/18 15:10: Urine Color Yellow, Urine Appearance Clear, Urine pH 6.0, Ur Specific [place] 1.025, Urine Protein Negative, Urine Glucose (UA) Negative, Urine Ketones 15 H, Urine Blood Negative, Urine Nitrate Negative, Urine Bilirubin Negative, Urine Urobilinogen 0.2, Ur Leukocyte Esterase Negative 05/24/18 13:10: Alcohol, Quantitative < 10 05/24/18 13:10: Salicylates < 1 L, Acetaminophen < 10.0 L 05/24/18 13:10: Sodium 137, Potassium 4.0, Chloride 103, Carbon Dioxide 27, Anion Gap 11, BUN 17, Creatinine 0.6 L, Est GFR ( Amer) > 60, Est GFR (Non-Af Amer) > 60, Random Glucose 90, Calcium 9.5, Total Bilirubin 0.5, AST 21, ALT 14, Alkaline Phosphatase 78, Total Protein 7.3, Albumin 4.3, Globulin 3.0, Albumin/Globulin Ratio 1.4 05/24/18 13:10: WBC 6.0, RBC 4.81, Hgb 14.2, Hct 42.0, MCV 87.3, MCH 29.5, MCHC 33.8, RDW 12.4, Plt Count 253, MPV 8.8, Neut % (Auto) 70.7 H, Lymph % (Auto) 18.7 L, [place] % (Auto) 9.5 H, Eos % (Auto) 0.8 L, Baso % (Auto) 0.3, Lymph # (Auto) 1.1 L, [place] # (Auto) 0.6, Eos # (Auto) 0.1, Baso # (Auto) 0.02, Absolute Neuts (auto) 4.24 Vital Signs Temp Pulse Resp BP Pulse Ox 05/27/18 07:00 97.8 F 81 20 96/60 L 05/26/18 16:00 82 98/62 L 05/26/18 07:00 97.8 F 82 20 106/68 05/25/18 16:00 79 105/72 05/25/18 07:00 97.8 F 85 20 106/66 05/24/18 17:28 98 F 78 18 129/82 98 05/24/18 15:00 76 18 118/66 98 05/24/18 13:00 82 18 123/66 98 05/24/18 11:48 97.6 F 94 H 18 115/65 95 Temp Pulse Resp BP Pulse Ox 97.6 F 76 20 120/69 98 05/28/18 07:00 05/28/18 07:00 05/28/18 07:00 05/28/18 07:00 05/24/18 17:28 DSM 5 Symptoms Update: patient is a 63 year old female, with a history of treatment resistant depression, anxiety, reportedly compliant with outpatient medications Prozac, klonopin and risperdal prescribed by at [facility] (last appointment was 05/17/18) who was BIB her sister to our ER yesterday with depression and SI to strangle herself. According to ER report, patient put a rubber band around her neck x2 days ago. Prior to her admission last month she had SI to cut her writs "I put a knife on my wrist but I didn't put pressure on it..., I am afraid to go to hell". pt was seen in OR, pt's sister Eloina came to support pt, pt was asking questions about outpatient settings, as per pt, "I still feel hopeless and I still afraid that I am not going to get better, but overall I am not in that dark space anymore...", pt denied thoughts of harming self or others. as per sister "I think Norah is doing little better, but she is anxious today ". Then pt signed a consent, pt had a capacity to do so. treatment #1 05/29/18 BL Pusle width 0.3Msec, frequencey 30Hz, duration 8.000sec, current 800mA, pt hag visible motor seizures for 52sec, but MECTA analysis showed 0% adequacy, which is very doubtful, but still we will adjust dose of stimuli. treatment #2 05/30/18 BL Pusle width 0.3Msec, frequencey 50Hz, duration 8.000sec, current 800mA, pt hag visible motor seizures for 1min 4sec, MECTA analysis showed 95% adequacy. succinylcoline was increased to 80mg because on 45mg pt did not have enough muscle relaxation, ketamine was increased to 30 because pt is deeply depressed, propofol 50mg. treatment #3 05/31/18 BL Pusle width 0.3Msec, frequencey 50Hz, duration 8.000sec, current 800mA, pt had visible motor seizures for 36seconds, MECTA analysis showed 95% adequacy. succinylcoline 80mg with good muscle relaxation, ketamine was increased to 40 because pt is deeply depressed, propofol 50mg. treatment #4 06/03/18 BL Pusle width 0.3Msec, frequencey 50Hz, duration 8.000sec, current 800mA, pt had visible motor seizures for 31seconds, MECTA analysis showed 94% adequacy. succinylcoline 80mg with good muscle relaxation, ketamine 40 mg, propofol 50mg. as per RN last ECT pt did not required ativan IVP. pt was calm and not agitated. treatment #4 06/04/18 BL Pusle width 0.3Msec, frequencey 50Hz, duration 8.000sec, current 800mA, pt had visible motor seizures for 49seconds, MECTA analysis showed 86% adequacy. succinylcoline 90mg with good muscle relaxation, ketamine 40 mg, propofol 50mg. as per RN last ECT pt did not required ativan IVP. pt was calm and not agitated, no side effects so far, no memory issues. Patient was seen for treatment in the psychiatric inpatient unit, affect is bright, patient complaining of the headache, wants to have ECT treatment on , then d/c back home later on or Sunday. so far pt tolerated meds well, no side effects observed or reported. AIMS 0, no EPS. DSM 5 Symptoms Update: Major Depression, Severe and recurrent (tx resistant) TRU [facility] Medication Change: Yes (Risperdal discontinued) Medical Record Reviewed: Yes Consults ordered or reviewed: Medical consult appreciated. pt is cleared to have ECT. Mental Status Examination - Cognitive Function Orientation: Person, Place, Situation Attention: WNL Concentration: Poor (some improvement) Association: WNL Fund of Knowledge: WNL - Mood Mood: Depressed ("I think I was feeling slightly better"), Anxious ("I am feeling anxious because of the ECT") - Affect Affect: Constricted (But more reactive, mood congruent) - Speech Speech: Appropriate - Formal Thought Process Formal Thought Process: No Impairment - Suicidal Ideation Suicidal Ideation: No - Homicidal Ideation Homicidal Ideation: No Goal/Treatment Plan - Goal/Treatment Plan Need for Continued Stay: Remain at risks for inpatient hospitalization, Severe depression anxiety, Discharge may exacerbated symptoms, Severe functional impairment Progress Toward Problem(s) and Goals/Treatment Plan: Milieu/structure/supportive therapy SW consultation for discharge plan and social issues Med management: Klonopin 0.25 mg 3 times a day as needed for anxiety Prozac 60 mg daily for depression and anxiety Risperdal discontinued #1 BL ECT treatment 05/29/18, tolerated well #2 BL ECT treatment 05/30/18 #3 BL ECT treatment 05/31/18 #4 BL ECT treatment 06/03/18, tolerated well #5 BL ECT treatment 06/04/18, tolerated well #6 BL ECT treatment 06/06/18 Sonata 5 mg at the nighttime as needed for insomnia Family involvement Follow up on labs Will monitor closely Pt was educated about risk/benefits and alternatives of medications, coping strategies (safety plan, suicide prevention), relapse prevention, importance of follow up with psychiatrist and therapist, stay away from drugs/alcohol/smoking Estimated Date of D/C: 06/06/18
--- NOTE | 2018-06-05 10:29 | PCM.BM ---
<Stewart Wilson - Last Filed: 06/05/18 10:28> Treatment Plan Problems - Problems identified on initial assessmt Ineffective coping Date Initiated: 05/24/18 Time Initiated: 22:45 Assessment reference: NA Status: Active social isolation Date Initiated: 05/24/18 Time Initiated: 22:50 Assessment reference: NA Status: Active Self-care deficit Date Initiated: 05/24/18 Time Initiated: 22:50 Assessment reference: NA Status: Active Treatment assets and liabiliti Patient Assests: cooperative, educated, insightful, motivated, physically healthy, good support system, financial stabiity, cognitively intact Patient Liabilities: live alone, poor support system - Milieu Protocol Maintain good personal hygiene: daily Encourage regular showers, daily Remind patient to perform daily oral care, daily Assist patient to perform ADL's Conduct patient checks and document Observation sheet: Q15 minutes Maintain personal safety: daily Educate patient to report safety concerns to staff, daily Monitor environment for contraband/sharps Medication safety: Monitor for expected outcome, potential side effects: daily, Assess barriers to learning: daily, Assess readiness for medication education: daily Milieu Narrative: Milieu/structure/supportive therapy SW consultation for discharge plan and social issues Med management: Klonopin 0.25 mg 3 times a day as needed for anxiety Prozac 60 mg daily for depression and anxiety Risperdal discontinued #1 BL ECT treatment 05/29/18, tolerated well #2 BL ECT treatment 05/30/18 #3 BL ECT treatment 05/31/18 #4 BL ECT treatment 06/03/18, tolerated well #5 BL ECT treatment 06/04/18, tolerated well #6 BL ECT treatment 06/06/18 Sonata 5 mg at the nighttime as needed for insomnia Family involvement Follow up on labs Will monitor closely Pt was educated about risk/benefits and alternatives of medications, coping strategies (safety plan, suicide prevention), relapse prevention, importance of follow up with psychiatrist and therapist, stay away from drugs/alcohol/smoking Family Contact Family involvement: Family/SO is involved Family contact: Patient agrees to contact Family contact name: Eloina Beebe(sister) Family contacted how many times per week?: 2 - Outside Agency [facility] Care involvment: Information-sharing Agency contact name: [facility] Agency contact number: [phone] - Goals for Treatment Patient goals for treatment: Lift depression and start enjoying life Discharge/Continuing Care - Education Needs Education Needs: Patient Medication, Patient Diagnosis/Disease Process, Patient Coping Skills, Patient Activities of Daily Living - Discharge Discharge Criteria: Free of Suicidal thoughts - Treatment Team Participation Patient/Family/SO Statement: Milieu/structure/supportive therapy SW consultation for discharge plan and social issues Med management: Klonopin 0.25 mg 3 times a day as needed for anxiety Prozac 60 mg daily for depression and anxiety Risperdal discontinued #1 BL ECT treatment 05/29/18, tolerated well #2 BL ECT treatment 05/30/18 #3 BL ECT treatment 05/31/18 #4 BL ECT treatment 06/03/18, tolerated well #5 BL ECT treatment 06/04/18, tolerated well #6 BL ECT treatment 06/06/18 Sonata 5 mg at the nighttime as needed for insomnia Family involvement Follow up on labs Will monitor closely Pt was educated about risk/benefits and alternatives of medications, coping strategies (safety plan, suicide prevention), relapse prevention, importance of follow up with psychiatrist and therapist, stay away from drugs/alcohol/smoking Treatment Plan Review - Problem Ineffective coping Date Initiated: 06/05/18 Time Initiated: 22:45 Progress toward outcomes: improved social isolation Date Initiated: 06/05/18 Time Initiated: 22:50 Progress toward outcomes: improved Self-care deficit Time Initiated: 22:50 Progress toward outcomes: improved <Marisol Viera - Last Filed: 06/05/18 15:00> - Diagnosis (1) MDD (major depressive disorder) Status: Acute Interventions: group, milieu and supportive tx * klonopin 0.25 mg po TID for anxiety * Prozac 60 mg po daily for depression and anxiety * Risperdal d/c * pt is on ECT, tolerates well * Patient denied thoughts of harming herself or others, denied intent or plan
--- NOTE | 2018-06-05 15:05 | PCM.PYCHPN ---
Psychiatric Progress Note - Psychiatric Progress Note Patient seen today, length of contact: 30 minutes Patient Chief Complaint: "I feel little better.., energy is little better" Problems Identified/Issues Discussed: Suicide/ homicide prevention, past psychiatric h/o, current psychiatric symptoms, medical problems, risk/benefits and alternatives of medications, medications compliance, coping strategies, substance abuse h/o, relapse prevention, importance of follow up with psychiatrist and therapist, discharge plan. Patient was also provided information about ECT treatment, risk, benefits, alternatives discussed. Medical Problems: Patient reported being healthy. Patient was seen by medical team for a ECT clearance, patient has high cholesterol level pt was cleared for ECT treatment. Diagnostic Results: 05/24/18 13:10 05/24/18 13:10 Lab Results 05/25/18 08:15: RPR Nonreactive 05/25/18 08:15: TSH 3rd Generation 1.23 05/25/18 08:15: Triglycerides 57, Cholesterol 255 H, LDL Cholesterol Direct 126, HDL Cholesterol 79 H 05/24/18 15:10: Urine Opiates Screen Negative, Urine Methadone Screen Negative, Ur Barbiturates Screen Negative, Ur Phencyclidine Scrn Negative, Ur Amphetamines Screen Negative, U Benzodiazepines Scrn Negative, U Oth Cocaine Metabols Negative, U Cannabinoids Screen Negative 05/24/18 15:10: Urine Color Yellow, Urine Appearance Clear, Urine pH 6.0, Ur Specific [place] 1.025, Urine Protein Negative, Urine Glucose (UA) Negative, Urine Ketones 15 H, Urine Blood Negative, Urine Nitrate Negative, Urine Bilirubin Negative, Urine Urobilinogen 0.2, Ur Leukocyte Esterase Negative 05/24/18 13:10: Alcohol, Quantitative < 10 05/24/18 13:10: Salicylates < 1 L, Acetaminophen < 10.0 L 05/24/18 13:10: Sodium 137, Potassium 4.0, Chloride 103, Carbon Dioxide 27, Anion Gap 11, BUN 17, Creatinine 0.6 L, Est GFR ( Amer) > 60, Est GFR (Non-Af Amer) > 60, Random Glucose 90, Calcium 9.5, Total Bilirubin 0.5, AST 21, ALT 14, Alkaline Phosphatase 78, Total Protein 7.3, Albumin 4.3, Globulin 3.0, Albumin/Globulin Ratio 1.4 05/24/18 13:10: WBC 6.0, RBC 4.81, Hgb 14.2, Hct 42.0, MCV 87.3, MCH 29.5, MCHC 33.8, RDW 12.4, Plt Count 253, MPV 8.8, Neut % (Auto) 70.7 H, Lymph % (Auto) 18.7 L, [place] % (Auto) 9.5 H, Eos % (Auto) 0.8 L, Baso % (Auto) 0.3, Lymph # (Auto) 1.1 L, [place] # (Auto) 0.6, Eos # (Auto) 0.1, Baso # (Auto) 0.02, Absolute Neuts (auto) 4.24 Vital Signs Temp Pulse Resp BP Pulse Ox 05/27/18 07:00 97.8 F 81 20 96/60 L 05/26/18 16:00 82 98/62 L 05/26/18 07:00 97.8 F 82 20 106/68 05/25/18 16:00 79 105/72 05/25/18 07:00 97.8 F 85 20 106/66 05/24/18 17:28 98 F 78 18 129/82 98 05/24/18 15:00 76 18 118/66 98 05/24/18 13:00 82 18 123/66 98 05/24/18 11:48 97.6 F 94 H 18 115/65 95 Temp Pulse Resp BP Pulse Ox 97.6 F 76 20 120/69 98 05/28/18 07:00 05/28/18 07:00 05/28/18 07:00 05/28/18 07:00 05/24/18 17:28 DSM 5 Symptoms Update: patient is a 63 year old female, with a history of treatment resistant depression, anxiety, reportedly compliant with outpatient medications Prozac, klonopin and risperdal prescribed by at [facility] (last appointment was 05/17/18) who was BIB her sister to our ER yesterday with depression and SI to strangle herself. According to ER report, patient put a rubber band around her neck x2 days ago. Prior to her admission last month she had SI to cut her writs "I put a knife on my wrist but I didn't put pressure on it..., I am afraid to go to hell". Patient was seen at the treatment team meeting room, patient presented with improved hygiene, affect was brighter, patient reported that she tolerates the ECT well, reported no side effects, no memory issues. Patient reports that she is willing to continue ECT as outpatient, patient reported that her energy level is increased, patient denied any feeling of hopelessness or helplessness, patient denied any OCD symptoms. Patient is willing to have ECT treatment tomorrow. As per staff patient is more visible in the unit, no behavioral issues, patient is pleasant and cooperative. so far pt tolerated meds well, no side effects observed or reported. AIMS 0, no EPS. DSM 5 Symptoms Update: Major Depression, Severe and recurrent (tx resistant) TRU [facility] Medication Change: Yes (Risperdal discontinued) Medical Record Reviewed: Yes Consults ordered or reviewed: Medical consult appreciated. pt is cleared to have ECT. Mental Status Examination - Cognitive Function Orientation: Person, Place, Situation Attention: WNL Concentration: Poor (some improvement) Association: WNL Fund of Knowledge: WNL - Mood Mood: Depressed ("I think I was feeling slightly better"), Anxious ("I am feeling anxious because of the ECT") - Affect Affect: Constricted (But more reactive, mood congruent) - Speech Speech: Appropriate - Formal Thought Process Formal Thought Process: No Impairment - Suicidal Ideation Suicidal Ideation: No - Homicidal Ideation Homicidal Ideation: No Goal/Treatment Plan - Goal/Treatment Plan Need for Continued Stay: Remain at risks for inpatient hospitalization, Severe depression anxiety, Discharge may exacerbated symptoms, Severe functional impairment Progress Toward Problem(s) and Goals/Treatment Plan: Milieu/structure/supportive therapy consultation for discharge plan and social issues Med management: Klonopin 0.25 mg 3 times a day as needed for anxiety Prozac 60 mg daily for depression and anxiety Risperdal discontinued #1 BL ECT treatment 05/29/18, tolerated well #2 BL ECT treatment 05/30/18 #3 BL ECT treatment 05/31/18 #4 BL ECT treatment 06/03/18, tolerated well #5 BL ECT treatment 06/04/18, tolerated well #6 BL ECT treatment 06/06/18 9:30 am, NPO after the midnight Sonata 5 mg at the nighttime as needed for insomnia Family involvement Follow up on labs Will monitor closely Pt was educated about risk/benefits and alternatives of medications, coping s trategies (safety plan, suicide prevention), relapse prevention, importance of follow up with psychiatrist and therapist, stay away from drugs/alcohol/smoking Estimated Date of D/C: 06/06/18
[2018-06-06 09:34] VITALS: TEMP 97.5
[2018-06-06] MEDS ORDERED: Propofol 10 mg/ml Inj (20 ML) ONE (10:13)
[2018-06-06] MEDS ORDERED: Succinylcholine 200 mg/10 ml Inj IV ONE (10:14)
[2018-06-06] MEDS ORDERED: Ketamine 10 mg/ml Inj (20 ml) ONE (10:16)
[2018-06-06] MEDS ORDERED: Sodium Chloride 0.9% 1,000 ML IV SCH (11:00)
[2018-06-06 11:13] VITALS: RESP 16
[2018-06-06 11:24] VITALS: BP 133/61; PULSE 90; O2SAT 96
--- NOTE | 2018-06-06 15:54 | PCM.PYCHDC ---
Mental Status Examination - Mental Status Examination Orientation: Person, Place, Situation, Time Memory: Intact Mood: Neutral Affect: Constricted (But reactive, mood congruent) Speech: Appropriate Attention: WNL Concentration: WNL Association: WNL Fund of Knowledge: WNL Formal Thought Process: No Impairment Description of patient's judgement and insight: Pt has improved insight into mental and medical illness, pt was compliant with medications and unit rules and regulations, pt was going to groups, was calm, cooperative, socially appropriate, no behavioral incidents, no agitation, no aggression. Psychotic Thoughts and Behaviors: Pt denied v/a/t hallucinations, denied paranoid ideations, pt does not appear to be psychotic, and thought process is goal directed. Suicidal Ideation: No Current Homicidal Ideation?: No Plan: pt adamantly denied thoughts of harming self or others denied intent or plan. Discharge Summary - Discharge Note Reason for Hospitalization: Treatment resistant depression, suicidal ideation with a plan to hang herself wi th pantyhose. Psychiatric History (includes Medical, Family, Personal Hx): Long history of major depressive disorder, treatment resistant. Laboratory Data: 05/24/18 13:10 05/24/18 13:10 Lab Results 05/30/18 13:55: Vitamin B12 402 05/25/18 08:15: RPR Nonreactive 05/25/18 08:15: TSH 3rd Generation 1.23 05/25/18 08:15: Triglycerides 57, Cholesterol 255 H, LDL Cholesterol Direct 126, HDL Cholesterol 79 H 05/24/18 15:10: Urine Opiates Screen Negative, Urine Methadone Screen Negative, Ur Barbiturates Screen Negative, Ur Phencyclidine Scrn Negative, Ur Amphetamines Screen Negative, U Benzodiazepines Scrn Negative, U Oth Cocaine Metabols Negative, U Cannabinoids Screen Negative 05/24/18 15:10: Urine Color Yellow, Urine Appearance Clear, Urine pH 6.0, Ur Specific [place] 1.025, Urine Protein Negative, Urine Glucose (UA) Negative, Urine Ketones 15 H, Urine Blood Negative, Urine Nitrate Negative, Urine Bilirubin Negative, Urine Urobilinogen 0.2, Ur Leukocyte Esterase Negative 05/24/18 13:10: Alcohol, Quantitative < 10 05/24/18 13:10: Salicylates < 1 L, Acetaminophen < 10.0 L 05/24/18 13:10: Sodium 137, Potassium 4.0, Chloride 103, Carbon Dioxide 27, Anion Gap 11, BUN 17, Creatinine 0.6 L, Est GFR ( Amer) > 60, Est GFR (Non-Af Amer) > 60, Random Glucose 90, Calcium 9.5, Total Bilirubin 0.5, AST 21, ALT 14, Alkaline Phosphatase 78, Total Protein 7.3, Albumin 4.3, Globulin 3.0, Albumin/Globulin Ratio 1.4 05/24/18 13:10: WBC 6.0, RBC 4.81, Hgb 14.2, Hct 42.0, MCV 87.3, MCH 29.5, MCHC 33.8, RDW 12.4, Plt Count 253, MPV 8.8, Neut % (Auto) 70.7 H, Lymph % (Auto) 18.7 L, [place] % (Auto) 9.5 H, Eos % (Auto) 0.8 L, Baso % (Auto) 0.3, Lymph # (Auto) 1.1 L, [place] # (Auto) 0.6, Eos # (Auto) 0.1, Baso # (Auto) 0.02, Absolute Neuts (auto) 4.24 Vital Signs Temp Pulse Resp BP Pulse Ox 06/06/18 11:22 97.5 F L 90 16 133/61 96 06/06/18 11:12 97.5 F L 93 H 16 122/56 L 95 06/06/18 10:57 97.5 F L 98 H 18 147/72 96 06/06/18 10:42 97.5 F L 105 H 18 147/73 96 06/06/18 09:30 97.5 F L 62 20 107/59 L 97 06/06/18 07:01 97.8 F 63 19 127/72 06/05/18 16:00 78 108/66 06/05/18 07:00 97.6 F 69 19 115/66 06/04/18 15:36 78 98/47 L 06/04/18 10:40 98.3 F 71 20 122/71 06/04/18 10:22 98 F 75 12 129/69 96 06/04/18 10:07 98 F 80 12 144/71 95 06/04/18 09:52 98 F 99 H 12 142/76 100 06/04/18 09:00 98 F 75 12 129/69 06/04/18 08:45 97.9 F 64 18 101/58 L 95 06/04/18 07:00 97.8 F 65 19 102/62 06/03/18 15:49 68 18 107/43 L 06/03/18 12:30 98.3 F 77 17 112/68 06/03/18 11:44 98.7 F 75 24 119/51 L 97 06/03/18 11:29 98.7 F 74 24 128/55 L 97 06/03/18 11:14 98.7 F 84 24 132/62 97 06/03/18 11:00 98.7 F 84 24 132/61 99 06/03/18 10:46 98.7 F 89 28 H 118/62 96 06/03/18 09:35 97.3 F L 69 18 131/61 97 06/03/18 09:15 98 F 68 18 114/62 06/02/18 16:00 75 99/56 L 06/02/18 07:00 98.0 F 68 18 114/62 06/01/18 16:00 75 100/57 L 06/01/18 07:00 98.2 F 73 20 109/58 L 05/31/18 16:00 73 104/57 L 05/31/18 14:08 73 104/57 L 05/31/18 11:45 98.3 F 71 19 136/57 L 98 05/31/18 11:30 98.3 F 75 17 133/59 L 98 05/31/18 11:15 98.3 F 81 18 147/72 97 05/31/18 10:30 98.1 F 70 20 103/57 L 97 05/31/18 07:00 98.7 F 93 H 20 108/60 05/30/18 16:21 92 H 110/60 05/30/18 11:49 98 F 89 20 117/53 L 99 05/30/18 11:34 91 H 20 119/64 100 05/30/18 11:19 98 F 95 H 12 131/85 92 L 05/30/18 09:48 98.4 F 80 20 119/64 96 05/30/18 07:04 98.3 F 81 20 108/62 05/29/18 16:00 89 139/79 05/29/18 12:31 98.4 F 76 20 129/60 05/29/18 12:00 89 18 141/70 98 05/29/18 11:45 83 16 145/72 98 05/29/18 11:30 120 H 18 143/57 L 99 05/29/18 11:15 98 F 112 H 18 145/57 L 99 05/29/18 09:20 97.7 F 90 20 126/65 97 05/29/18 07:51 97.8 F 77 18 115/68 05/29/18 07:00 97.8 F 77 20 115/68 05/28/18 16:00 82 115/72 05/28/18 07:00 97.6 F 76 20 120/69 05/27/18 15:00 71 106/60 05/27/18 07:00 97.8 F 81 20 96/60 L 05/26/18 16:00 82 98/62 L 05/26/18 07:00 97.8 F 82 20 106/68 05/25/18 16:00 79 105/72 05/25/18 07:00 97.8 F 85 20 106/66 05/24/18 17:28 98 F 78 18 129/82 98 05/24/18 15:00 76 18 118/66 98 05/24/18 13:00 82 18 123/66 98 05/24/18 11:48 97.6 F 94 H 18 115/65 95 Consultations:: List each consultation separately and include: 1. Reason for request. 2. Findings. 3. Follow-up Consultations: Medical consult appreciated. pt is cleared to have ECT. Patient was seen by neurologist, CT scan of the head within normal limits, vitamin B12 shots recommended as outpatient, patient is aware of the findings. Summary of Hospital Course include:: 1. Description of specific treatment plan utilized for patients during their course of treatmen. 2. Summarize the time- course for resolution of acute symptoms and/or regressed behaviors. 3. Describe issues identified and worked on during hospitalization. 4. Describe medication utilized. 5. Describe medical problems identified and treated. 6. Reassessment of suicide risk Summary of Hospital Course: patient is a 63 year old female, with a history of treatment resistant depression, anxiety, reportedly compliant with outpatient medications Prozac, klonopin and risperdal prescribed by at [facility] (last appointment was 05/17/18) who was BIB her sister to our ER yesterday with depression and SI to strangle herself. According to ER report, patient put a rubber band around her neck x2 days ago. Prior to her admission last month she had SI to cut her writs "I put a knife on my wrist but I didn't put pressure on it..., I am afraid to go to hell". At the time initial evaluation by this publicity writer patient presented to be severely depressed, pt said that prior to come to the hospital she was thinking to jump off the building or hang self, pt said that she has no courage to do so, but at the same time pt tried to put a pantyhose around her her neck. pt reported that nothing is making her feel happy, pt reported that she is "trapped in my own body, I want to do things, but I am not able to do so". pt reported that even taking a shower it is "very difficult for me". pt tried her best to participate in unit activities, but appears to be severely depressed and disengaged. ECT treatment was offered to the pt and pt agreed to it. Pt had 6 sessions, tole rated it well, no major side effects, no memory loss. Patient was weaned off from Risperdal, Prozac was decreased to 40 mg daily, Klonopin was given as needed for anxiety, needed for insomnia. so far pt tolerated meds well, no side effects observed or reported. AIMS 0, no EPS. Overall patient improved, patient was more visible in the unit, affect appears to be brighter, patient reported that her energy level seems to be improving, patient denied feeling of hopelessness or helplessness, patient adamantly denied thoughts of harming himself or others at the day of discharge. June 06, 2018 patient had ECT treatment #6 use the same parameters as before, Pusle width 0.3Msec, frequencey 50Hz, duration 8.000sec, current 800mA, pt had visible motor seizures for 33seconds, MECTA analysis showed 62% adequacy. succinylcoline 90mg with good muscle relaxation, ketamine 40 mg, propofol 50mg. as per RN last ECT pt did not required ativan IVP. pt was calm and not agitated, no side effects, no memory issues. Patient was seen after ECT procedure with brighter affect, go home, patient's s ister is going to pick her up, patient said that she will come back for a ECT treatment as outpatient. patient wants to be followed up with her outpatient psychiatrist at [facility]. Overall pt improved significantly, pt's affect became brighter, pt was less depressed, has realistic future oriented plans "I need to find a new apartment, I think I can make it", pt also does not appear to be psychotic, or anxious, pt was socially appropriate, no behavioral issues, pts insight improved as well and soon pt deemed to be ready for discharge. At the time of the discharge patient pose no imminent danger to self or others, will be following up at [facility], information about follow up appointment, time and address provided to the pt, (see SW note for more detailed information). It is a patient responsibility to follow up with outpatient clinic, PMD as well as specialists In case patient will need to obtain results of studies pending at discharge, patient was provided with contact information of Psychiatric Inpatient unit [phone] as well as Medical Record Department [phone], as well as [facility] team [phone]. Patient denied using drugs, denied alcohol consumption, denied smoking. This publicity writer decreased the dose of Prozac to 40 mg a day of discharge because this medication was not that effective to the patient, patient significantly improved on ECT treatment. ECT treatment is scheduled for the next June, 10:30 AM pt was provided with prescriptions see medication reconciliation form Pt was educated about safety plan in case of worsening of symptoms or in case of suicidal or homicidal ideation call 911 or go to the nearest ER, also was educated to take meds as prescribed and stay away from drugs, pt verbalized understanding. - Diagnosis (1) MDD (major depressive disorder) Current Visit: Yes Status: Chronic Priority: High - Final Diagnosis (DSM 5) Condition upon Discharge: GOOD Disposition: HOME/ ROUTINE Follow-up Treatment Plan: At the time of the discharge patient pose no imminent danger to self or others, will be following up at [facility], information about follow up appointment, time and address provided to the pt, (see SW note for more detailed information). It is a patient responsibility to follow up with outpatient clinic, PMD as well as specialists In case patient will need to obtain results of studies pending at discharge, patient was provided with contact information of Psychiatric Inpatient unit [phone] as well as Medical Record Department [phone], as well as [facility] team [phone]. Patient denied using drugs, denied alcohol consumption, denied smoking. This publicity writer decreased the dose of Prozac to 40 mg a day of discharge because this medication was not that effective to the patient, patient significantly improved on ECT treatment. ECT treatment is scheduled for the next June, 10:30 AM pt was provided with prescriptions see medication reconciliation form Pt was educated about safety plan in case of worsening of symptoms or in case of suicidal or homicidal ideation call 911 or go to the nearest ER, also was educated to take meds as prescribed and stay away from drugs, pt verbalized understanding. Prescriptions/Medication Reconciliation: Fluoxetine HCl [Prozac] 40 mg PO DAILY #14 capsule Zaleplon [Sonata] 5 mg PO HS PRN #14 cap PRN Reason: Insomnia - Smoking Cessation Smoking Cessation Medication prescribed: No Reason for not providing: Patient denied smoking - Antipsychotic Medications Pt discharged on 2 or more routine antipsychotic medications: No
== END 2018-06-06 16:47 | disposition home or self-care (01) | DRG 885 ==
LOC: ED 10:53 → ERH 15:56 → PSYC 19:00
PROVIDERS: ADMIT Psychiatry & Neurology Psychiatry; ATTEND Psychiatry & Neurology Psychiatry
PROC: GZB4ZZZ Other Electroconvulsive Therapy (ICD-10-PCS; 2018-05-29)
PROC: GZB4ZZZ Other Electroconvulsive Therapy (ICD-10-PCS; 2018-05-30)
PROC: GZB4ZZZ Other Electroconvulsive Therapy (ICD-10-PCS; 2018-05-31)
PROC: GZB4ZZZ Other Electroconvulsive Therapy (ICD-10-PCS; 2018-06-03)
PROC: GZB4ZZZ Other Electroconvulsive Therapy (ICD-10-PCS; 2018-06-04)
PROC: GZB4ZZZ Other Electroconvulsive Therapy (ICD-10-PCS; principal; 2018-06-06 10:00)
DX: F33.2 Major depressive disorder, recurrent severe without psychotic features (principal); R45.851 Suicidal ideations; F41.1 Generalized anxiety disorder; R56.9 Unspecified convulsions; I95.1 Orthostatic hypotension; E78.5 Hyperlipidemia, unspecified; E78.00 Pure hypercholesterolemia, unspecified; Z79.899 Other long term (current) drug therapy

== ENCOUNTER → 2018-06-13 | Day surgery (SDC) | payer MEDICARE, BC ==
[2018-05-24 11:50] VITALS: BMI 18.5
[~2018-06-13] MED LIST: Ketamine 10 mg/ml Inj (20 ml) ONE; Propofol 10 mg/ml Inj (20 ML) ONE; Sodium Chloride 0.9% 1,000 ML IV SCH; Succinylcholine 200 mg/10 ml Inj IV ONE
[2018-06-13 12:18] VITALS: TEMP 98
[2018-06-13 12:52] VITALS: PULSE 75; RESP 20; O2SAT 94
--- NOTE | 2018-06-13 13:10 | CP.PCM.HP ---
History of Present Illness - History of Present Illness History of Present Illness: please see full H&P 05/25/18. patient is a 63 year old female, with a history of treatment resistant depression, anxiety. pt had two back to back psych admissions, pt was discharged from the psychiatric inpatient unit 06/06/18, see d/c summary. pt came to outpatient ECT accompanied by her sister Eloina. as per pt's sister, pt did not have set for day treatment program (DTP), due to the fact that pt changed her d/c plan after left the hospital and SW did not have a consent for different referral. SW came to speak to the pt and her sister in OR holding area, now pt will f/u with DTD at [place]. Pt and her sister were hap py to know that. pt signed consent for treatment, had capacity do do so. pt denied eating or drinking for 12 hrs prior procedure. pt denied thoughts of harming self or others, pt reported to feel anxious. ECT treatment #7 06/13/18 BL outpatient Pusle width 0.3Msec, frequencey 50Hz, duration 8.000sec, current 800mA, pt had visible motor seizures for 45seconds, MECTA analysis showed 98% adequacy. succinylcoline 90mg with good muscle relaxation, ketamine 40 mg, propofol 50mg. pt woke up, no side effects, no need for Ativan IV. so far pt tolerated meds well, no side effects observed or reported. AIMS 0, no EPS. pt will f/u with 07/01/18. Present on Admission - Present on Admission Any Indicators Present on Admission: No Review of Systems - Constitutional Constitutional: As Per HPI Past Patient History - Infectious Disease Hx of Infectious Diseases: None - Past Social History Smoking Status: Unknown If Ever Smoked - CARDIAC Hx Pacemaker: No - PULMONARY Hx Tuberculosis: No - NEUROLOGICAL Hx Paralysis: No - HEMATOLOGICAL/ONCOLOGICAL Hx Blood Transfusions: No - MUSCULOSKELETAL/RHEUMATOLOGICAL Hx Musculoskeletal Disorders: No - GENITOURINARY/GYNECOLOGICAL Hx Sexually Transmitted Disorders: No - PSYCHIATRIC Hx Emotional Abuse: No Hx Physical Abuse: No Hx Substance Use: No - SURGICAL HISTORY Hx Surgeries: Yes (APPENDECTOMY-10 YRS AGO) - ANESTHESIA Hx Anesthesia Reactions: No Hx Malignant Hyperthermia: No Meds Allergies/Adverse Reactions: Allergies Allergy/AdvReac Type Severity Reaction Status Date / Time No Known Allergies Allergy Verified 05/24/18 23:11 Physical Exam - Constitutional Appears: Well Results - Vital Signs Recent Vital Signs: Last Vital Signs Temp 97.6 F 06/13/18 09:41 Pulse 72 06/13/18 09:41 Resp 20 06/13/18 09:41 BP 121/76 06/13/18 09:41 Pulse Ox 97 06/13/18 09:41 - EKG Data EKG Interpreted by: Other (anesthesiologist) Assessment & Plan (1) MDD (major depressive disorder) Status: Chronic Priority: Medium - Assessment and Plan (Free Text) Plan: now will give ECT weekly next tx 06/20/18 pt will f/u with as outpatient 07/01/18 will f/u at DTP at [place] pt was advised in case of worsening of her symptoms call 911 or come back to the hospital. Decision To Admit - Pt Status Changed To: Hospital Disposition Of: Extended Recovery/Post Procedure
[2018-06-13 13:14] VITALS: BP 128/78
== END | disposition home or self-care (01) ==
LOC: SDS 09:15
PROVIDERS: ATTEND Psychiatry & Neurology Psychiatry
DX: F32.9 Major depressive disorder, single episode, unspecified (principal); F41.9 Anxiety disorder, unspecified
CPT/HCPCS: 90870; J1885; J7030

== ENCOUNTER 2018-06-27 10:19 | Day surgery (SDC) | payer MEDICARE, BC ==
[2018-06-27 10:53] VITALS: TEMP 97.4
[2018-06-27] MEDS ORDERED: Ketamine 10 mg/ml Inj (20 ml) ONE (12:20)
[2018-06-27] MEDS ORDERED: Succinylcholine 200 mg/10 ml Inj IV ONE (12:20)
[2018-06-27] MEDS ORDERED: Propofol 10 mg/ml Inj (20 ML) ONE (12:21)
[2018-06-27] MEDS ORDERED: Lactated Ringer's 1,000 ML IV SCH (12:45)
[2018-06-27 13:02] VITALS: RESP 16
[2018-06-27 13:03] VITALS: O2SAT 97
[2018-06-27 13:18] VITALS: PULSE 91
[2018-06-27 14:21] VITALS: BP 128/76
--- NOTE | 2018-06-27 15:26 | CP.PCM.HP ---
History of Present Illness - History of Present Illness History of Present Illness: please see full H&P 05/25/18. patient is a 63 year old female, with a history of treatment resistant depression, anxiety. pt had two back to back psych admissions, pt was discharged from the psychiatric inpatient unit 06/06/18, see d/c summary. pt came to outpatient ECT accompanied by her sister Eloina, pt missed her ECT session because her sister was not able to bring patient for procedure. pt presented to be depressed/anxious, pt was un decisive about the ECT procedure, eventually agreed, risk/benefits and alternatives discussed. off note pt was referred to [facility], but pt walked away, now her appointment is on Sunday07/02/18. as per sister pt did not do well, was depressed, self isolating. this video games storywriter offered pt voluntary admission, but pt said "I am not suicidal, I will follow up with my psychiatrist and will go for the day treatment program." pt signed consent for treatment, had capacity do do so. pt denied eating or drinking for 12 hrs prior procedure. pt denied thoughts of harming self or others, pt reported to feel anxious. ECT treatment #7 06/13/18 [facility] outpatient ECT treatment #8 06/27/18 outpatient this video games storywriter will use the same parameters as previous session, when pt got 98% likely of productive seizures. Pusle width 0.3Msec, frequencey 50Hz, duration 8.000sec, current 800mA, pt had visible motor seizures for 45seconds, MECTA analysis showed 98% adequacy. succinylcoline 90mg with good muscle relaxation, ketamine was increased from 40 mg to 50mg because of depression, propofol 50mg. pt woke up, no side effects, no need for Ativan IV. pt was advised to come back next for ECT procedure. so far pt tolerated meds well, no side effects observed or reported. AIMS 0, no EPS. pt will f/u with 07/01/18. Present on Admission - Present on Admission Any Indicators Present on Admission: No Review of Systems - Review of Systems Systems not reviewed;Unavailable: Acuity of Condition - Constitutional Constitutional: As Per HPI - EENT Eyes: As Per HPI Ears: As Per HPI Nose/Mouth/Throat: As Per HPI - Breasts Breasts: As Per HPI - Cardiovascular Cardiovascular: As Per HPI - Respiratory Respiratory: As Per HPI - Gastrointestinal Gastrointestinal: As Per HPI - Genitourinary Genitourinary: As Per HPI - Reproductive: Female Reproductive:Female: As Per HPI - Menstruation Menstruation: As Per HPI - Musculoskeletal Musculoskeletal: As Per HPI - Integumentary Integumentary: As Per HPI - Neurological Neurological: As Per HPI - Psychiatric Psychiatric: As Per HPI - Endocrine Endocrine: As Per HPI - Hematologic/Lymphatic Hematologic: As Per HPI Past Patient History - Infectious Disease Hx of Infectious Diseases: None - Past Social History Smoking Status: Unknown If Ever Smoked - CARDIAC Hx Pacemaker: No - PULMONARY Hx Tuberculosis: No - NEUROLOGICAL Hx Paralysis: No - HEMATOLOGICAL/ONCOLOGICAL Hx Blood Transfusions: No - MUSCULOSKELETAL/RHEUMATOLOGICAL Hx Musculoskeletal Disorders: No - GENITOURINARY/GYNECOLOGICAL Hx Sexually Transmitted Disorders: No - PSYCHIATRIC Hx Emotional Abuse: No Hx Physical Abuse: No Hx Substance Use: No - SURGICAL HISTORY Hx Surgeries: Yes (APPENDECTOMY-10 YRS AGO;) - ANESTHESIA Hx Anesthesia Reactions: No Hx Malignant Hyperthermia: No Meds Allergies/Adverse Reactions: Allergies Allergy/AdvReac Type Severity Reaction Status Date / Time No Known Allergies Allergy Verified 05/24/18 23:11 Physical Exam - Constitutional Appears: Well, Non-toxic Results - Vital Signs Recent Vital Signs: Last Vital Signs Temp 97.4 F L 06/27/18 10:40 Pulse 108 H 06/27/18 10:40 Resp 18 06/27/18 10:40 BP 133/78 06/27/18 10:40 Pulse Ox 97 06/27/18 10:40 - EKG Data EKG Interpreted by: Myself EKG shows normal: Sinus rhythm Rate: Normal Assessment & Plan - Assessment and Plan (Free Text) Assessment: MDD, treatment resistant TRU as per h/o Plan: ECT weekly, next is 07/04/18 for 4weeks pt has f/u appt with , outpatient psychiatrist 07/01/18 DTP at [place], intake 07/02/18 Decision To Admit - Pt Status Changed To: Hospital Disposition Of: Extended Recovery/Post Procedure
== END 2018-06-27 14:30 | disposition home or self-care (01) ==
LOC: SDS 10:19
PROVIDERS: ATTEND Psychiatry & Neurology Psychiatry
DX: F32.9 Major depressive disorder, single episode, unspecified (principal); F41.1 Generalized anxiety disorder

== ENCOUNTER 2018-07-04 07:54 | Day surgery (SDC) | payer MEDICARE, BC ==
[2018-07-04] MEDS ORDERED: Sodium Chloride 0.9% 1,000 ML IV SCH ×2 (11:15→11:45)
[2018-07-04] MEDS ORDERED: Ketamine 10 mg/ml Inj (20 ml) ONE (11:26)
[2018-07-04] MEDS ORDERED: Succinylcholine 200 mg/10 ml Inj IV ONE (11:27)
[2018-07-04 12:27] VITALS: RESP 18
[2018-07-04 12:53] VITALS: TEMP 98.1; O2SAT 96
[2018-07-04 13:32] VITALS: BP 117/44; PULSE 96
--- NOTE | 2018-07-04 15:56 | CP.PCM.HP ---
History of Present Illness - History of Present Illness History of Present Illness: please see full H&P 05/25/18. patient is a 63 year old female, with a history of treatment resistant depression, anxiety. pt had two back to back psych admissions, pt was discharged from the psychiatric inpatient unit 06/06/18, see d/c summary. pt came to outpatient ECT accompanied by her sister Eloina. pt said she was not accepted to DTP at [place]. pt said that she follows up with her psychiatrist at [facility]. pt said she is compliant with medications. pt c/o some anxiety, depression, pt still feels hopeless at times, but pt came for treatment, pt said that she is moving to the new apartment tomorrow. pt does not feel that she needs to stay in the hospital now, pt was advised to come back to the hospital if she would have worsening of her symptoms, pt adamantly denied thoughts of harming self or others. Pt said "I am not suicidal, I will follow up with my psychiatrist and I will come back if I need it." pt signed consent for ECT treatment, had capacity do do so. pt denied eating or drinking for 12 hrs prior procedure. ECT treatment #7 06/13/18 outpatient ECT treatment #8 06/27/18 outpatient ECT treatment #9 07/04/18 outpatient this hand sign writer will use the same parameters as previous session, when pt got 98% likely of productive seizures. Pusle width 0.3Msec, frequencey was increased to 60Hz because pt c/o depression, duration 8.000sec, current 800mA, pt had visible motor seizures for 15seconds, MECTA analysis showed 81% adequacy. succinylcoline 90mg with good muscle relaxation, ketamine 50mg, propofol 50mg. pt woke up, no side effects, no need for Ativan IV. pt was advised to come back next 07/11/18 for ECT procedure. so far pt tolerated meds well, no side effects observed or reported. AIMS 0, no EPS. pt will f/u with her outpatient psychiatrist at [facility]. Present on Admission - Present on Admission Any Indicators Present on Admission: No Review of Systems - Review of Systems Systems not reviewed;Unavailable: Acuity of Condition - Constitutional Constitutional: As Per HPI - EENT Eyes: As Per HPI Ears: As Per HPI Nose/Mouth/Throat: As Per HPI - Breasts Breasts: As Per HPI - Cardiovascular Cardiovascular: As Per HPI - Respiratory Respiratory: As Per HPI - Gastrointestinal Gastrointestinal: As Per HPI - Genitourinary Genitourinary: As Per HPI - Reproductive: Female Reproductive:Female: As Per HPI - Menstruation Menstruation: As Per HPI - Musculoskeletal Musculoskeletal: As Per HPI - Integumentary Integumentary: As Per HPI - Neurological Neurological: As Per HPI - Psychiatric Psychiatric: As Per HPI - Endocrine Endocrine: As Per HPI - Hematologic/Lymphatic Hematologic: As Per HPI Past Patient History - Infectious Disease Hx of Infectious Diseases: None - Past Social History Smoking Status: Unknown If Ever Smoked - CARDIAC Hx Pacemaker: No - PULMONARY Hx Tuberculosis: No - NEUROLOGICAL Hx Paralysis: No - HEMATOLOGICAL/ONCOLOGICAL Hx Blood Transfusions: No - MUSCULOSKELETAL/RHEUMATOLOGICAL Hx Musculoskeletal Disorders: No - GENITOURINARY/GYNECOLOGICAL Hx Sexually Transmitted Disorders: No - PSYCHIATRIC Hx Emotional Abuse: No Hx Physical Abuse: No Hx Substance Use: No - SURGICAL HISTORY Hx Surgeries: Yes (APPENDECTOMY-10 YRS AGO;) - ANESTHESIA Hx Anesthesia Reactions: No Hx Malignant Hyperthermia: No Meds Allergies/Adverse Reactions: Allergies Allergy/AdvReac Type Severity Reaction Status Date / Time No Known Allergies Allergy Verified 05/24/18 23:11 Physical Exam - Constitutional Appears: Well, Non-toxic Results - Vital Signs Recent Vital Signs: Last Vital Signs Temp 97.7 F 07/04/18 08:40 Pulse 78 07/04/18 08:40 Resp 20 07/04/18 08:40 BP 118/73 07/04/18 08:40 Pulse Ox 96 07/04/18 08:40 - EKG Data EKG Interpreted by: Myself EKG shows normal: Sinus rhythm Rate: Normal Assessment & Plan (1) Anxiety Status: Chronic Priority: Medium (2) MDD (major depressive disorder) Status: Chronic Priority: Medium - Assessment and Plan (Free Text) Plan: ECT 07/11/18 pt is in the enrollment to [facility] outpatient program at , meanwhile pt will f/u with outpatient psychiatrist at [facility] pt was advised to come back to the hospital in case of the worsening of the symptoms pt was advised to take meds as prescribed Medication list confirmed, patient has printed out of medication list from [facility] dated 07/03/2018 Alprazolam 2 mg twice a day for anxiety Lunesta 3 mg at the nighttime Prozac 20 mg daily Pantoprazole 40 mg daily Trazodone 100 mg at the nighttime Patient has follow-up appointment at [facility] on July 04, 2018 at 12:45 PM, patient is planning to keep that appointment. Decision To Admit - Pt Status Changed To: Hospital Disposition Of: Extended Recovery/Post Procedure
== END 2018-07-04 14:36 | disposition home or self-care (01) ==
LOC: SDS 07:54
PROVIDERS: ATTEND Psychiatry & Neurology Psychiatry
DX: F32.9 Major depressive disorder, single episode, unspecified (principal); F41.9 Anxiety disorder, unspecified
CPT/HCPCS: 90870; J0330; J7030

== ENCOUNTER 2018-08-12 13:03 | Inpatient (IN) | payer MEDICARE, BC ==
[2018-08-12 13:43] VITALS: BMI 17.4
[2018-08-12 14:29] LABS: URINE BILIRUBIN NEGATIVE (NEGATIVE); URINE BLOOD TRACE-INTACT (NEGATIVE); URINE COLOR YELLOW (YELLOW); URINE GLUCOSE (UA) NEGATIVE (NEGATIVE); URINE LEUKOCYTE ESTERASE NEGATIVE Leu/uL (NEGATIVE); URINE PROTEIN TRACE mg/dL (<30 mg/dL); URINE UROBILINOGEN 0.2 E.U./dL (<1 E.U./dL)
[2018-08-12 14:30] LABS: BASO # 0.02 K/mm3 (0.0-2.0); BASO % 0.3 % (0.0-3.0); EOS # 0.1 (0.0-0.7); EOS % 0.7 % (1.5-5.0); HEMOGLOBIN 14.7 g/dL (12.0-16.0); LYMPH # 1.6 (1.2-3.4); LYMPH % 21.6 % (22.0-35.0); MEAN CELL VOLUME 87.8 fl (80.0-105.0); MEAN CORPUSCULAR HEMOGLOBIN 29.5 pg (25.0-35.0); MEAN CORPUSCULAR HGB CONC 33.6 g/dl (31.0-37.0); MEAN PLATELET VOLUME 9.2 fl (7.0-11.0); MONO # 0.5 (0.1-0.6); MONO % 6.4 % (1.0-6.0); RBC 4.98 10^6/uL (3.5-6.1); RED CELL DISTRIBUTION WIDTH 12.8 % (11.5-14.5); URINE APPEARANCE SL CLOUDY (CLEAR); WHITE BLOOD COUNT 7.2 10^3/uL (4.5-11.0)
[2018-08-12 14:35] LABS: ALB/GLOB RATIO 1.3 (1.1-1.8); ALBUMIN 4.4 g/dL (3.0-4.8); ALT/SGPT 21 U/L (7-56); AST/SGOT 23 U/L (14-36); BLOOD UREA NITROGEN 18 mg/dL (7-21); CALCIUM 9.6 mg/dL (8.4-10.5); GFR NON-AFRICAN AMERICAN > 60
[2018-08-12 14:36] LABS: ACETAMINOPHEN < 10.0 ug/ml (10.0-20.0); SALICYLATE < 1 mg/dL (2.0-20.0)
[2018-08-12 14:38] LABS: URINE AMORPHOUS SEDIMENT FEW /hpf; URINE BACTERIA MANY /hpf; URINE HYALINE CAST 0 - 2 /hpf; URINE WBC 0 - 2 /hpf (0-6)
--- NOTE | 2018-08-12 14:38 | ED PDOC ---
Arrival/HPI - General Chief Complaint: Psychiatric Evaluation Time Seen by Provider: 08/12/18 13:04 Historian: Patient - History of Present Illness Narrative History of Present Illness (Text): 08/12/18 15:29 63 y/o female with PMH of anxiety and depression presents to the ED c/o depression x 3 months. Pt is noncompliant with her medication and outpatient therapy. Per sister, pt was having regular ECT treatments and was admitted to the psychiatric floor here at [facility] in May, but upon discharge never followed up with her outpatient psychiatrist. Pt admits to having suicidal thoughts in the past but not today. Pt has no somatic complaints. Denies SI, HI, hallucinations, substance use, fever, chills, chest pain, abdominal pain, back pain, urinary symptoms, nausea, vomiting, numbness ,weakness, paresthesias, headache, SOB, or any other associated symptoms. Past Medical History - Provider Review Nursing Documentation Reviewed: Yes Primary Care Provider: King Franks - Infectious Disease Hx of Infectious Diseases: None - Cardiac Hx Pacemaker: No - Pulmonary Hx Tuberculosis: No - Neurological Hx Paralysis: No - Hematological/Oncological Hx Blood Transfusions: No - Musculoskeletal/Rheumatological Hx Musculoskeletal Disorders: No - Genitourinary/Gynecological Hx Sexually Transmitted Diseases: No - Psychiatric Hx Depression: Yes Hx Emotional Abuse: No Hx Physical Abuse: No Hx Substance Use: No - Surgical History Hx Appendectomy: Yes - Anesthesia Hx Anesthesia Reactions: No Hx Malignant Hyperthermia: No - Suicidal Assessment Feels Threatened In Home Enviroment: No Family/Social History - Physician Review Nursing Documentation Reviewed: Yes Family/Social History: No Known Family HX Smoking Status: Never Smoked Hx Alcohol Use: No Hx Substance Use: No Allergies/Home Meds Allergies/Adverse Reactions: Allergies No Known Allergies Allergy (Verified 08/12/18 22:03) Home Medications: Home Meds Medication Instructions Recorded Confirmed PARoxetine [Paxil] 20 mg PO DAILY 08/12/18 08/12/18 clonazePAM [Klonopin] 1 tab PO PRN PRN 08/12/18 08/12/18 Review of Systems - Review of Systems Constitutional: Normal. absent: Fatigue Eyes: Normal. absent: Vision Changes ENT: Normal. absent: Sore Throat, Sinus Congestion Respiratory: Normal. absent: SOB Cardiovascular: Normal. absent: Chest Pain, Palpitations, Syncope Gastrointestinal: Normal. absent: Abdominal Pain, Nausea, Vomiting Genitourinary Female: Normal. absent: Dysuria, Frequency Musculoskeletal: Normal. absent: Back Pain, Neck Pain Skin: Normal. absent: Rash Neurological: Normal. absent: Headache, Dizziness Psychiatric: Anxiety, Depression. absent: Suicidal Ideation Physical Exam Vital Signs Reviewed: Yes Vital Signs Temp Pulse Resp BP Pulse Ox 08/12/18 13:47 98.0 F 96 H 18 146/86 98 Temperature: Afebrile Blood Pressure: Normal Pulse: Regular Respiratory Rate: Normal Appearance: Positive for: Well-Appearing, Non-Toxic, Comfortable Pain Distress: None Mental Status: Positive for: Alert and Oriented X 3 - Systems Exam Head: Present: Atraumatic, Normocephalic Pupils: Present: PERRL Extroacular Muscles: Present: EOMI Conjunctiva: Present: Normal Mouth: Present: Moist Mucous Membranes Neck: Present: Normal Range of Motion. No: Meningeal Signs Respiratory/Chest: Present: Clear to Auscultation, Good Air Exchange. No: Respiratory Distress, Accessory Muscle Use Cardiovascular: Present: Regular Rate and Rhythm, Normal S1, S2, Peripheal Pulses Present Abdomen: Present: Normal Bowel Sounds. No: Tenderness, Distention, Peritoneal Signs Back: Present: Normal Inspection. No: CVA Tenderness Upper Extremity: Present: Normal Inspection, Normal ROM Lower Extremity: Present: Normal Inspection, Normal ROM Neurological: Present: GCS=15, CN II-XII Intact, Speech Normal, Motor Func Grossly Intact, Normal Sensory Function, Gait Normal Skin: Present: Warm, Dry, Normal Color. No: Rashes Psychiatric: Present: Alert, Oriented x 3 Medical Decision Making ED Course and Treatment: 13:55 Initial Plan: * Labs * EKG * CXR * ALISA Hernandez 14:45 Bloodwork reviewed, unremarkable EKG shows no change from previous CXR shows no active disease Patient is medically cleared for psychiatric evaluation. 17:55 Advised by PES worker that patient is to be admitted to psychiatric floor with diagnosis of major depressive disorder, recurrent, severe. Pt continues to have no physical complaints. Vitals stable at this time. Pt updated with change in disposition. - Lab Interpretations Lab Results: Total Bilirubin 0.6 mg/dL (0.2-1.3) 08/12/18 14:05 AST 23 U/L (14-36) 08/12/18 14:05 ALT 21 U/L (7-56) 08/12/18 14:05 Alkaline Phosphatase 92 U/L (38-126) 08/12/18 14:05 Total Protein 7.8 g/dL (5.8-8.3) 08/12/18 14:05 Albumin 4.4 g/dL (3.0-4.8) 08/12/18 14:05 Globulin 3.4 gm/dL 08/12/18 14:05 Albumin/Globulin Ratio 1.3 (1.1-1.8) 08/12/18 14:05 Urine Color Yellow (YELLOW) 08/12/18 14:05 Urine Appearance Sl cloudy (CLEAR) 08/12/18 14:05 Urine pH 6.0 (4.7-8.0) 08/12/18 14:05 Ur Specific [place] 1.025 (1.005-1.035) 08/12/18 14:05 Urine Protein Trace mg/dL (<30 mg/dL) H 08/12/18 14:05 Urine Glucose (UA) Negative mg/dL (NEGATIVE) 08/12/18 14:05 Urine Ketones Negative mg/dL (NEGATIVE) 08/12/18 14:05 Urine Blood Trace-intact (NEGATIVE) H 08/12/18 14:05 Urine Nitrate Negative (NEGATIVE) 08/12/18 14:05 Urine Bilirubin Negative (NEGATIVE) 08/12/18 14:05 Urine Urobilinogen 0.2 E.U./dL (<1 E.U./dL) 08/12/18 14:05 Ur Leukocyte Esterase Negative Janette/uL (NEGATIVE) 08/12/18 14:05 08/12/18 14:05 08/12/18 14:05 Lab Results 08/12/18 14:05: Alcohol, Quantitative < 10 08/12/18 14:05: Salicylates < 1 L, Acetaminophen < 10.0 L 08/12/18 14:05: Urine Opiates Screen Negative, Urine Methadone Screen Negative, Ur Barbiturates Screen Negative, Ur Phencyclidine Scrn Negative, Ur Amphetamines Screen Negative, U Benzodiazepines Scrn Negative, U Oth Cocaine Metabols Negat olena, U Cannabinoids Screen Negative 08/12/18 14:05: Sodium 138, Potassium 4.0, Chloride 103, Carbon Dioxide 26, Anion Gap 13, BUN 18, Creatinine 0.6 L, Est GFR ( Amer) > 60, Est GFR (Non-Af Amer) > 60, Random Glucose 107, Calcium 9.6, Total Bilirubin 0.6, AST 23, ALT 21, Alkaline Phosphatase 92, Total Protein 7.8, Albumin 4.4, Globulin 3.4, Albumin/Globulin Ratio 1.3 08/12/18 14:05: Urine Color Yellow, Urine Appearance Sl cloudy, Urine pH 6.0, Ur Specific [place] 1.025, Urine Protein Trace H, Urine Glucose (UA) Negative, Urine Ketones Negative, Urine Blood Trace-intact H, Urine Nitrate Negative, Urine Bilirubin Negative, Urine Urobilinogen 0.2, Ur Leukocyte Esterase Negative, Urine RBC 2 - 5 H, Urine WBC 0 - 2, Ur Epithelial Cells 4 - 5, Amorphous Sediment Few, Urine Bacteria Many, Hyaline Casts 0 - 2 08/12/18 14:05: WBC 7.2, RBC 4.98, Hgb 14.7, Hct 43.7, MCV 87.8, MCH 29.5, MCHC 33.6, RDW 12.8, Plt Count 343, MPV 9.2, Neut % (Auto) 71.0 H, Lymph % (Auto) 21.6 L, Steele % (Auto) 6.4 H, Eos % (Auto) 0.7 L, Baso % (Auto) 0.3, Lymph # (Auto) 1.6, Steele # (Auto) 0.5, Eos # (Auto) 0.1, Baso # (Auto) 0.02, Absolute Neuts (auto) 5.09 I have reviewed the lab results: Yes - RAD Interpretation Narrative RAD Interpretations (Text): 15:27 CXR: FINDINGS: LUNGS: No active pulmonary disease. PLEURA: No significant pleural effusion identified, no pneumothorax apparent. CARDIOVASCULAR: No aortic atherosclerotic calcification present. Normal cardiac size. No pulmonary vascular congestion. OSSEOUS STRUCTURES: No significant abnormalities. VISUALIZED UPPER ABDOMEN: Normal. OTHER FINDINGS: None. IMPRESSION: No active disease. Radiology Orders: 08/12/18 13:55 CHEST PORTABLE [RAD] Stat Cast Iron Drain Pipe Layer: Radiologist - EKG Interpretation EKG Interpretation (Text): 08/12/18 15:27 Rate 93; NSR; Incomplete LBBB; Prolonged QT, normal MA interval; No STEMI, nonspecific ST/T wave changes Interpreted by ED Physician: Yes Type: 12 lead EKG Comparison: Com.w/previous EKG (May 2018) Disposition/Present on Arrival - Present on Arrival Any Indicators Present on Arrival: No History of DVT/PE: No History of Uncontrolled Diabetes: No Urinary Catheter: No History of Decub. Ulcer: No History Surgical Site Infection Following: None - Disposition Have Diagnosis and Disposition been Completed?: Yes Diagnosis: MDD (major depressive disorder) Disposition: HOSPITALIZED Disposition Time: 15:00 Patient Plan: Admission Patient Problems: Current Active Problems Problem Status Onset MDD (major depressive disorder) Chronic Condition: STABLE
--- NOTE | 2018-08-12 14:49 | RAD ---
Date of service: 08/12/2018 HISTORY: psych COMPARISON: 03/23/2019 TECHNIQUE: 1 view obtained. FINDINGS: LUNGS: No active pulmonary disease. PLEURA: No significant pleural effusion identified, no pneumothorax apparent. CARDIOVASCULAR: No aortic atherosclerotic calcification present. Normal cardiac size. No pulmonary vascular congestion. OSSEOUS STRUCTURES: No significant abnormalities. VISUALIZED UPPER ABDOMEN: Normal. OTHER FINDINGS: None. IMPRESSION: No active disease.
[2018-08-12 15:01] LABS: BARBITURATES, UR NEGATIVE (NEGATIVE); BENZODIAZEPINES, UR NEGATIVE (NEGATIVE); OPIATES, UR NEGATIVE (NEGATIVE); PHENCYCLIDINE, UR NEGATIVE (NEGATIVE)
[2018-08-12] MEDS ORDERED: Alum-Mag Hydrox-Simethicone Susp (30 mL) PO PRN (20:43)
[2018-08-12] MEDS ORDERED: Magnesium Hydroxide Susp 30 ml UD PO PRN (20:43)
[2018-08-12] MEDS ORDERED: DiphenhydrAMINE 50 mg/ml Inj IM PRN (20:52)
[2018-08-12 21:20] VITALS: O2SAT 99
--- NOTE | 2018-08-12 22:30 | PCM.BM ---
<Brandon Pruitt - Last Filed: 08/12/18 22:21> Treatment Plan Problems - Problems identified on initial assessmt Hopelessness/Helplessness Date Initiated: 08/12/18 Time Initiated: 22:21 Assessment reference: NA Status: Active Ineffective Coping Date Initiated: 08/12/18 Time Initiated: 22:38 Assessment reference: NA Status: Active Medication nonadherence Date Initiated: 08/12/18 Time Initiated: 22:39 Assessment reference: NA Status: Active Social Isolation Date Initiated: 08/12/18 Time Initiated: 22:39 Assessment reference: NA Status: Active Treatment assets and liabiliti Patient Assests: cooperative, educated, self-reliant, ADL independent, physically healthy, financial stabiity, cognitively intact Patient Liabilities: live alone, poor support system - Milieu Protocol Maintain good personal hygiene: daily Encourage regular showers, daily Remind patient to perform daily oral care, daily Assist patient to perform ADL's Conduct patient checks and document Observation sheet: Q15 minutes Maintain personal safety: every shift Educate patient to report safety concerns to staff, every shift Monitor environment for contraband/sharps Medication safety: Monitor for expected outcome, potential side effects: every shift, Assess barriers to learning: every shift, Assess readiness for medication education: every shift Discharge/Continuing Care - Education Needs Education Needs: Patient Medication, Patient Diagnosis/Disease Process, Patient Coping Skills, Patient Community resources, Patient Activities of Daily Living, Patient Health Practices/Safety, Patient Aftercare Safety Plan - Discharge Discharge Criteria: Tolerates medication w/o severe side effects, Free of Suicidal thoughts, Normal sleep pattern, Ability to care for self, Reduction of target symptoms <Marisol Viera - Last Filed: 08/13/18 15:48> - Diagnosis (1) Anxiety Status: Chronic Interventions: 08/13/18 15:48 Psychoeducation Psychopharmacology/adjustment of medications as needed/ monitoring possible side effects Evaluate pt on daily basis Discussion of importance of being compliant with medications and follow up appointments Suicide and homicide risk assessment and prevention, coping strategies, safety plan Reduction of symptoms Relaxation techniques and breathing exercises Improve functional status Family involvement Cognitive behavioral therapy as outpatient (2) MDD (major depressive disorder) Status: Chronic Interventions: 08/13/18 15:48 ECT was offered again Psychoeducation Psychopharmacology/adjustment of medications as needed/ monitoring possible side effects Evaluate pt on daily basis Compliance with medications and follow up appointments Suicide and homicide risk assessment and prevention Relapse prevention Reduction of symptoms Improve functional status Family involvement As outpatient: cognitive behavioral therapy <Eri Hyde - Last Filed: 08/14/18 12:25> Family Contact Family involvement: Patient does not wish Family/SO involvement - Outside Agency [facility] Care involvment: Information-sharing <Kya Knight - Last Filed: 08/14/18 15:10>
--- NOTE | 2018-08-13 07:11 | CARD ---
APPROVED REPORT Date of service: 08/12/2018 EKG Measurement Heart [id number] <Conclusion> Normal sinus rhythm Possible Left atrial enlargement Incomplete left bundle branch block Prolonged QT Abnormal ECG
[2018-08-13 08:01] LABS: GLUCOSE,FASTING 101 mg/dL (65-110); HDL CHOLESTEROL 89 mg/dL (29-60)
[2018-08-13 08:12] LABS: LDL CHOLESTEROL 128 mg/dL (0-129)
--- NOTE | 2018-08-13 15:48 | PCM.PSYCH ---
Initial Psychiatric Evaluation - Initial Psychiatric Evaluation Type of Admission: Voluntary Legal Status: Capacity Chief Complaint (in patient's own words): "I am regretful to let my sister know that I put a belt around my neck a week ago, I should have not let her know...." Patient's Reaction to Hospitalization: Patient was admitted to the psychiatric inpatient unit for evaluation of worsening depression, possible suicidal ideation, about a week ago patient tried to suffocate herself with a belt. History of Present Illness and Precipitating Events: shortly pt is a 63 year old female, with a history of treatment resistant depression, anxiety, two previous psychiatric admissions 2017, 2 admissions to this facility in April 2018 and May 2018, patient got 9 ECT treatments which patient considered to be not effective. Patient recently moved back to [place], currently lives with roommate, patient's sister brought patient for evaluation of worsening of depression, possible suicidal ideation, about a week ago patient tried to suffocate herself with the belt. Patient currently under care for [facility], compliance with the medications is questionable, present moment patient obviously requires further evaluationstabilization/observation. This commercial insurance underwriter is very familiar with this patient from the previous admissions to the psychiatric inpatient unit and ECT treatments. Patient presented with susceptible personal hygiene, seems to lost some weight, patient appears to be w ithdrawn, depressed, tearful, not forthcoming with information. Patient has good ADLs. Patient started with statement "I am so regretful that I let my sister know what I did last week, probably you know about it huh?", Patient was explained that about the 1 week ago patient tried to self medicate herself with a belt, patient reported nobody was at home, patient thought that life is not worth living, patient reported that she tried to suffocate herself and could not do so because "I started to feel dizzy" patient seems to be angry, irritable, blaming herself for letting her sister know. Patient made some financial arrangement such as patient gave her safe's keys (where she keeps her will), to her sister "I needed to give it to her in anyway" Patient was keep repeating blood draws to be discharged, patient reported that she will be feeling better on free air, this commercial insurance underwriter would like to emphasize the fact that patient tried to commit suicide about a week ago, no remorse, medication compliance is questionable. Patient denied hearing voices, denies seeing things, but presented to be guarded/anxious, has cost issues. "ruminations and intrusive thoughts, I keep playing it in my head over and over again". Patient reported that she has fair appetite but she lost some weight and she is not sure. Patient reported that her sleep is "fine". Past psychiatric history: 9ECT treatments two psych admissions to this facility 04/27, 05/28. h/o holding a knife against her left wrist about a week ago tried suffocate self, did not tell anyone, did not call 911, did not let her psychiatrist/therapist know. Patient denied using drugs, denied smoking cigarettes, denied alcohol consumption. Patient denied history of manic episodes, denies history of abuse. Patient reported that she fills her medications at [facility] here in [place], this commercial insurance underwriter called and confirmed medication list. [phone] klonopin 0.5mg o tid paxil 20mg daily prozac was d/c Medical history: Patient denied any medical history about patient cholesterol level is elevated as well as urine was positive for blood, will call for medical consultation. Family history: Patient reported that 2 of her brothers suffers from alcohol addiction, younger brother suffers from major depressive disorder and she is on Zoloft. Denies family history of suicidal attempts. collaterals from sister: Eloina Beebe pt did not give permission to speak to her. 08/12/18 14:05 08/12/18 14:05 Lab Results 08/13/18 07:40: RPR Nonreactive 08/13/18 07:40: TSH 3rd Generation 0.94 08/13/18 07:40: Fasting Glucose 101, Triglycerides 80, Cholesterol 261 H, LDL Cholesterol Direct 128, HDL Cholesterol 89 H 08/12/18 14:05: Alcohol, Quantitative < 10 08/12/18 14:05: Salicylates < 1 L, Acetaminophen < 10.0 L 08/12/18 14:05: Urine Opiates Screen Negative, Urine Methadone Screen Negative, Ur Barbiturates Screen Negative, Ur Phencyclidine Scrn Negative, Ur Amphetamines Screen Negative, U Benzodiazepines Scrn Negative, U Oth Cocaine Metabols Negative, U Cannabinoids Screen Negative 08/12/18 14:05: Sodium 138, Potassium 4.0, Chloride 103, Carbon Dioxide 26, Anion Gap 13, BUN 18, Creatinine 0.6 L, Est GFR ( Amer) > 60, Est GFR (Non-Af Amer) > 60, Random Glucose 107, Calcium 9.6, Total Bilirubin 0.6, AST 23, ALT 21, Alkaline Phosphatase 92, Total Protein 7.8, Albumin 4.4, Globulin 3.4, Albumin/Globulin Ratio 1.3 08/12/18 14:05: Urine Color Yellow, Urine Appearance Sl cloudy, Urine pH 6.0, Ur Specific [place] 1.025, Urine Protein Trace H, Urine Glucose (UA) Negative, Urine Ketones Negative, Urine Blood Trace-intact H, Urine Nitrate Negative, Urine Bilirubin Negative, Urine Urobilinogen 0.2, Ur Leukocyte Esterase Negative, Urine RBC 2 - 5 H, Urine WBC 0 - 2, Ur Epithelial Cells 4 - 5, Amorphous Sediment Few, Urine Bacteria Many, Hyaline Casts 0 - 2 08/12/18 14:05: WBC 7.2, RBC 4.98, Hgb 14.7, Hct 43.7, MCV 87.8, MCH 29.5, MCHC 33.6, RDW 12.8, Plt Count 343, MPV 9.2, Neut % (Auto) 71.0 H, Lymph % (Auto) 21.6 L, [place] % (Auto) 6.4 H, Eos % (Auto) 0.7 L, Baso % (Auto) 0.3, Lymph # (Au to) 1.6, [place] # (Auto) 0.5, Eos # (Auto) 0.1, Baso # (Auto) 0.02, Absolute Neuts (auto) 5.09 Vital Signs Temp Pulse Resp BP Pulse Ox 08/13/18 06:37 97.6 F 65 18 116/66 08/12/18 21:19 97.5 F L 84 18 145/79 99 08/12/18 17:43 86 18 153/80 H 98 08/12/18 15:14 88 18 155/88 H 99 08/12/18 13:47 98.0 F 96 H 18 146/86 98 The patient failed the outpatient lower level of care: Yes Current Medications: Active Medications Generic Name Dose Route Start Last Admin Trade Name Freq PRN Reason Stop Dose Admin Acetaminophen 650 mg 08/12/18 20:43 Tylenol 325mg Tab PO Q6H PRN Pain, moderate (4-7) Al Hydrox/Mg Hydrox/Simethicone 30 ml 08/12/18 20:43 Maalox Plus 30 Ml PO DAILY PRN Indigestion / Heartburn Clonazepam 0.5 mg 08/12/18 20:43 08/12/18 21:38 Klonopin PO 0.5 mg Q8 PRN Administration Anxiety Protocol Diphenhydramine HCl 25 mg 08/12/18 20:52 Benadryl PO Q6 PRN Agitation Diphenhydramine HCl 25 mg 08/12/18 20:52 Benadryl IM Q6 PRN severe agitation Haloperidol 5 mg 08/12/18 20:52 Haldol PO Q6 PRN Agitation Protocol Haloperidol Lactate 5 mg 08/12/18 21:04 Haldol IM Q6 PRN severe agitation Protocol Lorazepam 2 mg 08/12/18 20:52 Ativan PO Q6 PRN Agitation Protocol Lorazepam 2 mg 08/12/18 20:52 Ativan IM Q6 PRN Severe Agitation Protocol Magnesium Hydroxide 30 ml 08/12/18 20:43 Milk Of Magnesia PO DAILY PRN Constipation Paroxetine HCl 20 mg 08/13/18 08:00 Paxil PO DAILY MELODY Zaleplon 10 mg 08/12/18 20:43 Sonata PO HS PRN Insomnia Present on Admission - Present on Admission Any Indicators Present on Admission: No History of DVT/PE: No History of Uncontrolled Diabetes: No Urinary Catheter: No Decubitus Ulcer Present: No Review of Systems - Review of Systems Systems not reviewed;Unavailable: Acuity of Condition - Constitutional Constitutional: As Per HPI - EENT Eyes: As Per HPI Ears: As Per HPI Nose/Mouth/Throat: As Per HPI - Breasts Breasts: As Per HPI - Cardiovascular Cardiovascular: As Per HPI - Respiratory Respiratory: As Per HPI - Gastrointestinal Gastrointestinal: As Per HPI - Genitourinary Genitourinary: As Per HPI - Reproductive: Female Reproductive:Female: As Per HPI - Menstruation Menstruation: As Per HPI - Musculoskeletal Musculoskeletal: As Per HPI - Integumentary Integumentary: As Per HPI - Neurological Neurological: As Per HPI - Psychiatric Psychiatric: As Per HPI - Endocrine Endocrine: As Per HPI - Hematologic/Lymphatic Hematologic: As Per HPI Past Patient History - Past Psychiatric History Previous Treatment History: Inpatient Prior Professional Help: See HPI Prior Psychiatric Treatment: See HPI At what hospital: See HPI Duration: See HPI Nature of Treatment: See HPI Explanation of prior treatment: See HPI - PSYCHIATRIC Hx Anxiety: Yes Hx Depression: Yes Hx Substance Use: No - Infectious Disease Hx of Infectious Diseases: None - CARDIAC Hx Cardiac Disorders: No Hx Pacemaker: No - PULMONARY Hx Respiratory Disorders: No Hx Tuberculosis: No - NEUROLOGICAL Hx Neurological Disorder: No Hx Paralysis: No - HEENT Hx HEENT Problems: No - RENAL Hx Chronic Kidney Disease: No - ENDOCRINE/METABOLIC Hx Endocrine Disorders: No - HEMATOLOGICAL/ONCOLOGICAL Hx Blood Disorders: No Hx Blood Transfusions: No - INTEGUMENTARY Hx Dermatological Problems: No - MUSCULOSKELETAL/RHEUMATOLOGICAL Hx Musculoskeletal Disorders: No - GASTROINTESTINAL Hx Gastrointestinal Disorders: No - GENITOURINARY/GYNECOLOGICAL Hx Genitourinary Disorders: No Hx Sexually Transmitted Disorders: No - SURGICAL HISTORY Hx Appendectomy: Yes - ANESTHESIA Hx Anesthesia Reactions: No Hx Malignant Hyperthermia: No - Medical/Surgical History Reviewed & confirmed: by mn Meds Allergies/Adverse Reactions: Allergies Allergy/AdvReac Type Severity Reaction Status Date / Time No Known Allergies Allergy Verified 08/12/18 22:03 Mental Status Examination - Personal Presentation Personal Presentation: Looks stated age - Affect Affect: Flat - Motor Activity Motor Activity: Psychomotor Retardation - Reliability in Providing Information Reliability in Providing Information: Fair - Speech Speech: Organized - Mood Mood: Depressed, Anxious - Formal Thought Process Formal Thought Process: Paranoia (Cannot be excluded) - Obsessions/Compulsions Obsessions: No Compulsions: No - Cognitive Functions Orientation: Person, Place, Situation, Time Sensorium: Alert Estimate of Intelligence: Average Judgement: Intact, as evidence by: Insight regarding need for hospitalization - Risk Risk: Suicidal, Self-mutilation, Diminished functioning, Other (History of suicidal attempts, patient is secretive, not forthcoming with information) - Strength & Assets Inventory Strength & Assets Inventory: Intelligence, Family support, Cooperative - Limitations Limitations: Living alone Psychiatric Physical Exam - Physical Exam Reviewed and confirmed: Emergency Department Physical Exam Results - Vital Signs Recent Vital Signs: Last Vital Signs Temp 97.6 F 08/13/18 06:37 Pulse 65 08/13/18 06:37 Resp 18 08/13/18 06:37 BP 116/66 08/13/18 06:37 Pulse Ox 99 08/12/18 21:19 - Labs Result Diagrams: 08/12/18 14:05 08/12/18 14:05 Labs: Laboratory Results - last 24 hr 08/12/18 08/12/18 08/12/18 14:05 14:05 14:05 WBC 7.2 RBC 4.98 Hgb 14.7 Hct 43.7 MCV 87.8 MCH 29.5 MCHC 33.6 RDW 12.8 Plt Count 343 MPV 9.2 Neut % (Auto) 71.0 H Lymph % (Auto) 21.6 L [place] % (Auto) 6.4 H Eos % (Auto) 0.7 L Baso % (Auto) 0.3 Lymph # (Auto) 1.6 [place] # (Auto) 0.5 Eos # (Auto) 0.1 Baso # (Auto) 0.02 Absolute Neuts (auto) 5.09 Sodium 138 Potassium 4.0 Chloride 103 Carbon Dioxide 26 Anion Gap 13 BUN 18 Creatinine 0.6 L Est GFR ( Amer) > 60 Est GFR (Non-Af Amer) > 60 Random Glucose 107 Fasting Glucose Calcium 9.6 Total Bilirubin 0.6 AST 23 ALT 21 Alkaline Phosphatase 92 Total Protein 7.8 Albumin 4.4 Globulin 3.4 Albumin/Globulin Ratio 1.3 Triglycerides Cholesterol LDL Cholesterol Direct HDL Cholesterol TSH 3rd Generation Urine Color Yellow Urine Appearance Sl cloudy Urine pH 6.0 Ur Specific [place] 1.025 Urine Protein Trace H Urine Glucose (UA) Negative Urine Ketones Negative Urine Blood Trace-intact H Urine Nitrate Negative Urine Bilirubin Negative Urine Urobilinogen 0.2 Ur Leukocyte Esterase Negative Urine RBC 2 - 5 H Urine WBC 0 - 2 Ur Epithelial Cells 4 - 5 Amorphous Sediment Few Urine Bacteria Many Hyaline Casts 0 - 2 Salicylates Urine Opiates Screen Urine Methadone Screen Acetaminophen Ur Barbiturates Screen Ur Phencyclidine Scrn Ur Amphetamines Screen U Benzodiazepines Scrn U Oth Cocaine Metabols U Cannabinoids Screen Alcohol, Quantitative 08/12/18 08/12/18 08/12/18 14:05 14:05 14:05 WBC RBC Hgb Hct MCV MCH MCHC RDW Plt Count MPV Neut % (Auto) Lymph % (Auto) [place] % (Auto) Eos % (Auto) Baso % (Auto) Lymph # (Auto) [place] # (Auto) Eos # (Auto) Baso # (Auto) Absolute Neuts (auto) Sodium Potassium Chloride Carbon Dioxide Anion Gap BUN Creatinine Est GFR ( Amer) Est GFR (Non-Af Amer) Random Glucose Fasting Glucose Calcium Total Bilirubin AST ALT Alkaline Phosphatase Total Protein Albumin Globulin Albumin/Globulin Ratio Triglycerides Cholesterol LDL Cholesterol Direct HDL Cholesterol TSH 3rd Generation Urine Color Urine Appearance Urine pH Ur Specific [place] Urine Protein Urine Glucose (UA) Urine Ketones Urine Blood Urine Nitrate Urine Bilirubin Urine Urobilinogen Ur Leukocyte Esterase Urine RBC Urine WBC Ur Epithelial Cells Amorphous Sediment Urine Bacteria Hyaline Casts Salicylates < 1 L Urine Opiates Screen Negative Urine Methadone Screen Negative Acetaminophen < 10.0 L Ur Barbiturates Screen Negative Ur Phencyclidine Scrn Negative Ur Amphetamines Screen Negative U Benzodiazepines Scrn Negative U Oth Cocaine Metabols Negative U Cannabinoids Screen Negative Alcohol, Quantitative < 10 08/13/18 08/13/18 07:40 07:40 WBC RBC Hgb Hct MCV MCH MCHC RDW Plt Count MPV Neut % (Auto) Lymph % (Auto) [place] % (Auto) Eos % (Auto) Baso % (Auto) Lymph # (Auto) [place] # (Auto) Eos # (Auto) Baso # (Auto) Absolute Neuts (auto) Sodium Potassium Chloride Carbon Dioxide Anion Gap BUN Creatinine Est GFR ( Amer) Est GFR (Non-Af Amer) Random Glucose Fasting Glucose 101 Calcium Total Bilirubin AST ALT Alkaline Phosphatase Total Protein Albumin Globulin Albumin/Globulin Ratio Triglycerides 80 Cholesterol 261 H LDL Cholesterol Direct 128 HDL Cholesterol 89 H TSH 3rd Generation 0.94 Urine Color Urine Appearance Urine pH Ur Specific [place] Urine Protein Urine Glucose (UA) Urine Ketones Urine Blood Urine Nitrate Urine Bilirubin Urine Urobilinogen Ur Leukocyte Esterase Urine RBC Urine WBC Ur Epithelial Cells Amorphous Sediment Urine Bacteria Hyaline Casts Salicylates Urine Opiates Screen Urine Methadone Screen Acetaminophen Ur Barbiturates Screen Ur Phencyclidine Scrn Ur Amphetamines Screen U Benzodiazepines Scrn U Oth Cocaine Metabols U Cannabinoids Screen Alcohol, Quantitative - EKG Data EKG Interpreted by: ER Physician DSM Plan - DSM 5 DSM 5 Diagnosis: Major depressive disorder, severe, 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 generalized anxiety - Recommended/Plan of Treatment Treatment Recommendations and Plan of Treatment: Milieu/structure/supportive therapy SW consultation for discharge plan and social issues Med management paxil will be increased to 30 mg daily for depression or anxiety Klonopin as needed As needed medication Family involvement Possible ECT treatment, but patient expressed no interest Family involvement Follow up on labs Will monitor closely Pt was educated about risk/benefits and alternatives of medications, coping strategies (safety plan, suicide prevention), relapse prevention, importance of follow up with psychiatrist and therapist, stay away from drugs/alcohol/smoking Projected ELOS: 12days Prognosis: guarded Discharge Plan and Discharge Criteria: Patient will be not in danger to self or others. - Tobacco Cessation Tobacco Use Status for the last 30 days: Non User Tobacco Use Treatment Practical Counseling Provided: No Tobacco Use Treatment FDA-Approved Cessation Medication Provided: No - Alcohol or Substance Abuse Does the patient have an Alcohol or Substance Abuse Disorder: No Initial Psych Certification - Initial Certification I certify that the inpatient psychiatric facility admission was medically necessary for either: Treatment which could reasonbly be expected to improve pt's condition I estimate of hospitalization is necessary for proper treatment of the patient: 12 Unit of Time: Days My plans for post-hospital care for this patient are: DTP
--- NOTE | 2018-08-14 14:40 | PCM.PYCHPN ---
Psychiatric Progress Note - Psychiatric Progress Note Patient seen today, length of contact: 30min Patient Chief Complaint: "I am okay, I don't do not want to be on ECT treatment..." Problems Identified/Issues Discussed: Treatment options, ECT, trans-magnetic stimulation, medications risk/benefits/alternatives, suicide assessment/prevention. Medical Problems: See HPI Diagnostic Results: 08/12/18 14:05 08/12/18 14:05 Lab Results 08/13/18 07:40: RPR Nonreactive 08/13/18 07:40: TSH 3rd Generation 0.94 08/13/18 07:40: Fasting Glucose 101, Triglycerides 80, Cholesterol 261 H, LDL Cholesterol Direct 128, HDL Cholesterol 89 H 08/12/18 14:05: Alcohol, Quantitative < 10 08/12/18 14:05: Salicylates < 1 L, Acetaminophen < 10.0 L 08/12/18 14:05: Urine Opiates Screen Negative, Urine Methadone Screen Negative, Ur Barbiturates Screen Negative, Ur Phencyclidine Scrn Negative, Ur Amphetamines Screen Negative, U Benzodiazepines Scrn Negative, U Oth Cocaine Metabols Negative, U Cannabinoids Screen Negative 08/12/18 14:05: Sodium 138, Potassium 4.0, Chloride 103, Carbon Dioxide 26, Anion Gap 13, BUN 18, Creatinine 0.6 L, Est GFR ( Amer) > 60, Est GFR (Non-Af Amer) > 60, Random Glucose 107, Calcium 9.6, Total Bilirubin 0.6, AST 23, ALT 21, Alkaline Phosphatase 92, Total Protein 7.8, Albumin 4.4, Globulin 3.4, Albumin/Globulin Ratio 1.3 08/12/18 14:05: Urine Color Yellow, Urine Appearance Sl cloudy, Urine pH 6.0, Ur Specific [place] 1.025, Urine Protein Trace H, Urine Glucose (UA) Negative, Urine Ketones Negative, Urine Blood Trace-intact H, Urine Nitrate Negative, Urine Bilirubin Negative, Urine Urobilinogen 0.2, Ur Leukocyte Esterase Negative, Urine RBC 2 - 5 H, Urine WBC 0 - 2, Ur Epithelial Cells 4 - 5, Amorphous Sediment Few, Urine Bacteria Many, Hyaline Casts 0 - 2 08/12/18 14:05: WBC 7.2, RBC 4.98, Hgb 14.7, Hct 43.7, MCV 87.8, MCH 29.5, MCHC 33.6, RDW 12.8, Plt Count 343, MPV 9.2, Neut % (Auto) 71.0 H, Lymph % (Auto) 21.6 L, [place] % (Auto) 6.4 H, Eos % (Auto) 0.7 L, Baso % (Auto) 0.3, Lymph # (Auto) 1.6, [place] # (Auto) 0.5, Eos # (Auto) 0.1, Baso # (Auto) 0.02, Absolute Neuts (auto) 5.09 Vital Signs Temp Pulse Resp BP Pulse Ox 08/14/18 07:21 97.9 F 81 20 100/61 08/13/18 16:00 76 107/65 08/13/18 06:37 97.6 F 65 18 116/66 08/12/18 21:19 97.5 F L 84 18 145/79 99 08/12/18 17:43 86 18 153/80 H 98 08/12/18 15:14 88 18 155/88 H 99 08/12/18 13:47 98.0 F 96 H 18 146/86 98 DSM 5 Symptoms Update: shortly pt is a 63 year old female, with a history of treatment resistant depression, anxiety, two previous psychiatric admissions 2018, 2 admissions to this facility in April 2018 and May 2018, patient got 9 ECT treatments which patient considered to be not effective. Patient recently moved back to [place], currently lives with roommate, patient's sister brought patient for evaluation of worsening of depression, possible suicidal ideation, about a week ago patient tried to suffocate herself with the belt. Patient currently under care for [facility], compliance with the medications is questionable, present moment patient obviously requires further evaluationstabilization/observation. This singer songwriter is very familiar with this patient from the previous admissions to the psychiatric inpatient unit and ECT treatments. Patient was seen at the treatment team meeting, patient presented with susceptible personal hygiene, see ms to lost some weight, patient appears to be withdrawn, depressed, but reported feeling "fine". Patient was secretive, minimizing her symptoms, most keep asking about her discharge, this singer songwriter educated about treatment plan, suggested ECT resumption, patient declined that offer saying that she is "terrified of the procedure", patient reported that she slept fine, denied feeling of hopelessness or helplessness. Patient presented in a way that she does not require admission to psych unit. As per nursing staff report patient is anxious, pacing in the unit, secretive, guarded. pt is angry at her sister/self for this admission. So far patient tolerates medications well, no side effects observed or reported, aims 0, no EPS. Impression: Depressive disorder, severe, recurrent, psychosis cannot be excluded Generalized anxiety disorder Medication Change: Yes (Paxil increased, Seroquel started, Klonopin scheduled) Medical Record Reviewed: Yes Consults ordered or reviewed: Patient is relatively healthy, no need was cleared by medical team in the emergency room. Mental Status Examination - Cognitive Function Orientation: Person, Place, Situation, Time Memory: Intact Attention: Poor Concentration: Poor Association: WNL Fund of Knowledge: WNL - Mood Mood: Depressed, Anxious - Affect Affect: Flat - Formal Thought Process Formal Thought Process: Paranoia (Cannot be excluded) - Suicidal Ideation Suicidal Ideation: No - Homicidal Ideation Homicidal Ideation: No Goal/Treatment Plan - Goal/Treatment Plan Need for Continued Stay: Remain at risks for inpatient hospitalization, Severe depression anxiety, Discharge may exacerbated symptoms, Severe functional impairment Progress Toward Problem(s) and Goals/Treatment Plan: Milieu/structure/supportive therapy SW consultation for discharge plan and social issues Med management paxil will be increased to 30 mg daily for depression or anxiety Klonopin 0.5 twice a day schedule for anxiety Seroquel 25 mg at the nighttime as adjunct for depression As needed medication Family involvement Possible ECT treatment, but patient expressed no interest Family involvement Follow up on labs Will monitor closely Pt was educated about risk/benefits and alternatives of medications, coping stra tegies (safety plan, suicide prevention), relapse prevention, importance of follow up with psychiatrist and therapist, stay away from drugs/alcohol/smoking Estimated Date of D/C: 08/21/18
--- NOTE | 2018-08-15 12:04 | PCM.PYCHPN ---
Psychiatric Progress Note - Psychiatric Progress Note Patient seen today, length of contact: 30min Patient Chief Complaint: "I do regret that I ever came to the hospital..." Problems Identified/Issues Discussed: Treatment options, ECT, trans-magnetic stimulation, medications risk/benefits/alternatives, suicide assessment/prevention. Medical Problems: See HPI Diagnostic Results: 08/12/18 14:05 08/12/18 14:05 Lab Results 08/13/18 07:40: RPR Nonreactive 08/13/18 07:40: TSH 3rd Generation 0.94 08/13/18 07:40: Fasting Glucose 101, Triglycerides 80, Cholesterol 261 H, LDL Cholesterol Direct 128, HDL Cholesterol 89 H 08/12/18 14:05: Alcohol, Quantitative < 10 08/12/18 14:05: Salicylates < 1 L, Acetaminophen < 10.0 L 08/12/18 14:05: Urine Opiates Screen Negative, Urine Methadone Screen Negative, Ur Barbiturates Screen Negative, Ur Phencyclidine Scrn Negative, Ur Amphetamines Screen Negative, U Benzodiazepines Scrn Negative, U Oth Cocaine Metabols Negative, U Cannabinoids Screen Negative 08/12/18 14:05: Sodium 138, Potassium 4.0, Chloride 103, Carbon Dioxide 26, Anion Gap 13, BUN 18, Creatinine 0.6 L, Est GFR ( Amer) > 60, Est GFR (Non-Af Amer) > 60, Random Glucose 107, Calcium 9.6, Total Bilirubin 0.6, AST 23, ALT 21, Alkaline Phosphatase 92, Total Protein 7.8, Albumin 4.4, Globulin 3.4, Albumin/Globulin Ratio 1.3 08/12/18 14:05: Urine Color Yellow, Urine Appearance Sl cloudy, Urine pH 6.0, Ur Specific [place] 1.025, Urine Protein Trace H, Urine Glucose (UA) Negative, Urine Ketones Negative, Urine Blood Trace-intact H, Urine Nitrate Negative, Urine Bilirubin Negative, Urine Urobilinogen 0.2, Ur Leukocyte Esterase Negativ e, Urine RBC 2 - 5 H, Urine WBC 0 - 2, Ur Epithelial Cells 4 - 5, Amorphous Sediment Few, Urine Bacteria Many, Hyaline Casts 0 - 2 08/12/18 14:05: WBC 7.2, RBC 4.98, Hgb 14.7, Hct 43.7, MCV 87.8, MCH 29.5, MCHC 33.6, RDW 12.8, Plt Count 343, MPV 9.2, Neut % (Auto) 71.0 H, Lymph % (Auto) 21.6 L, [place] % (Auto) 6.4 H, Eos % (Auto) 0.7 L, Baso % (Auto) 0.3, Lymph # (Auto) 1.6, [place] # (Auto) 0.5, Eos # (Auto) 0.1, Baso # (Auto) 0.02, Absolute Neuts (auto) 5.09 Vital Signs Temp Pulse Resp BP Pulse Ox 08/14/18 07:21 97.9 F 81 20 100/61 08/13/18 16:00 76 107/65 08/13/18 06:37 97.6 F 65 18 116/66 08/12/18 21:19 97.5 F L 84 18 145/79 99 08/12/18 17:43 86 18 153/80 H 98 08/12/18 15:14 88 18 155/88 H 99 08/12/18 13:47 98.0 F 96 H 18 146/86 98 DSM 5 Symptoms Update: shortly pt is a 63 year old female, with a history of treatment resistant depression, anxiety, two previous psychiatric admissions 2018, 2 admissions to this facility in April 2018 and May 2018, patient got 9 ECT treatments which patient considered to be not effective. Patient recently moved back to [place], currently lives with roommate, patient's sister brought patient for evaluation of worsening of depression, possible suicidal ideation, about a week ago patient tried to suffocate herself with the belt. Patient currently under care for [facility], compliance with the medications is questionable, present moment patient obviously requires further evaluationstabilization/observation. This engineering technical writer is very familiar with this patient from the previous admissions to the psychiatric inpatient unit and ECT treatments. Patient was seen at the treatment team meeting room, patient presented to be irritable, was blaming her sister for bringing her to the hospital, still does not want this engineering technical writer to talk to her sister and. Patient made it clear that she does not want to have ECT treatment, patient asked for trans-magnetic stimulation referral. Shellfish Shucker gave a call to [facility], they are in the process of opening TMS program. But it will take couple weeks for the patient to get appt. Patient was secretive, minimizing her symptoms, most keep asking about her discharge, said "I am wasting time here", this engineering technical writer would like to emphasize the fact that patient does not work, patient feels outpatient program, patient was noncompliant with the treatment program/ECT treatment. As a result patient tried to commit suicide about a week ago prior to this admission. Patient still high risk, denied any intent or plan to kill herself during the interview. As per nursing staff report patient is anxious, pacing in the unit, secretive, guarded. pt is angry at her sister/self for this admission. So far patient tolerates medications well, no side effects observed or reported, aims 0, no EPS. Impression: Depressive disorder, severe, recurrent, psychosis cannot be excluded Generalized anxiety disorder Medication Change: Yes (Paxil increased, Seroquel started, Klonopin PRN) Medical Record Reviewed: Yes Mental Status Examination - Cognitive Function Orientation: Person, Place, Situation, Time Memory: Intact Attention: Poor Concentration: Poor Association: WNL Fund of Knowledge: WNL - Mood Mood: Depressed, Anxious - Affect Affect: Flat - Formal Thought Process Formal Thought Process: Paranoia (Cannot be excluded) - Suicidal Ideation Suicidal Ideation: No - Homicidal Ideation Homicidal Ideation: No Goal/Treatment Plan - Goal/Treatment Plan Need for Continued Stay: Remain at risks for inpatient hospitalization, Severe depression anxiety, Discharge may exacerbated symptoms, Severe functional impairment Progress Toward Problem(s) and Goals/Treatment Plan: Milieu/structure/supportive therapy SW consultation for discharge plan and social issues Med management paxil 30 mg daily for depression or anxiety Klonopin 0.5 twice a day as needed for anxiety Seroquel 50 mg at the nighttime as adjunct for depression As needed medication Family involvement Possible ECT treatment, but patient expressed no interest possible TMS Family involvement Follow up on labs Will monitor closely Pt was educated about risk/benefits and alternatives of medications, coping strategies (safety plan, suicide prevention), relapse prevention, importance of follow up with psychiatrist and therapist, stay away from drugs/alcohol/smoking Estimated Date of D/C: 08/21/18
--- NOTE | 2018-08-16 16:24 | PCM.PYCHPN ---
Psychiatric Progress Note - Psychiatric Progress Note Patient seen today, length of contact: 30min Patient Chief Complaint: "I do regret that I ever came to the hospital..., I also regret that I let my sister know that I did what I did" Problems Identified/Issues Discussed: Treatment options, ECT, trans-magnetic stimulation, medications risk/benefits/alternatives, suicide assessment/prevention. Medical Problems: See HPI Diagnostic Results: 08/12/18 14:05 08/12/18 14:05 Lab Results 08/13/18 07:40: RPR Nonreactive 08/13/18 07:40: TSH 3rd Generation 0.94 08/13/18 07:40: Fasting Glucose 101, Triglycerides 80, Cholesterol 261 H, LDL Cholesterol Direct 128, HDL Cholesterol 89 H 08/12/18 14:05: Alcohol, Quantitative < 10 08/12/18 14:05: Salicylates < 1 L, Acetaminophen < 10.0 L 08/12/18 14:05: Urine Opiates Screen Negative, Urine Methadone Screen Negative, Ur Barbiturates Screen Negative, Ur Phencyclidine Scrn Negative, Ur Amphetamines Screen Negative, U Benzodiazepines Scrn Negative, U Oth Cocaine Metabols Negative, U Cannabinoids Screen Negative 08/12/18 14:05: Sodium 138, Potassium 4.0, Chloride 103, Carbon Dioxide 26, Anion Gap 13, BUN 18, Creatinine 0.6 L, Est GFR ( Amer) > 60, Est GFR (Non-Af Amer) > 60, Random Glucose 107, Calcium 9.6, Total Bilirubin 0.6, AST 23, ALT 21, Alkaline Phosphatase 92, Total Protein 7.8, Albumin 4.4, Globulin 3.4, Albumin/Globulin Ratio 1.3 08/12/18 14:05: Urine Color Yellow, Urine Appearance Sl cloudy, Urine pH 6.0, Ur Specific [place] 1.025, Urine Protein Trace H, Urine Glucose (UA) Negative, Urine Ketones Negative, Urine Blood Trace-intact H, Urine Nitrate Negative, Urine Bilirubin Negative, Urine Urobilinogen 0.2, Ur Leukocyte Esterase Negative, Urine RBC 2 - 5 H, Urine WBC 0 - 2, Ur Epithelial Cells 4 - 5, Amorphous Sediment Few, Urine Bacteria Many, Hyaline Casts 0 - 2 08/12/18 14:05: WBC 7.2, RBC 4.98, Hgb 14.7, Hct 43.7, MCV 87.8, MCH 29.5, MCHC 33.6, RDW 12.8, Plt Count 343, MPV 9.2, Neut % (Auto) 71.0 H, Lymph % (Auto) 21.6 L, [place] % (Auto) 6.4 H, Eos % (Auto) 0.7 L, Baso % (Auto) 0.3, Lymph # (Auto) 1.6, [place] # (Auto) 0.5, Eos # (Auto) 0.1, Baso # (Auto) 0.02, Absolute Neuts (auto) 5.09 Vital Signs Temp Pulse Resp BP Pulse Ox 08/14/18 07:21 97.9 F 81 20 100/61 08/13/18 16:00 76 107/65 08/13/18 06:37 97.6 F 65 18 116/66 08/12/18 21:19 97.5 F L 84 18 145/79 99 08/12/18 17:43 86 18 153/80 H 98 08/12/18 15:14 88 18 155/88 H 99 08/12/18 13:47 98.0 F 96 H 18 146/86 98 DSM 5 Symptoms Update: shortly pt is a 63 year old female, with a history of treatment resistant depression, anxiety, two previous psychiatric admissions 2018, 2 admissions to this facility in April 2018 and May 2018, patient got 9 ECT treatments which patient considered to be not effective. Patient recently moved back to [place], currently lives with roommate, patient's sister brought patient for evaluation of worsening of depression, possible suicidal ideation, about a week ago patient tried to suffocate herself with the belt. Patient currently under care for [facility], compliance with the medications is questionable, present moment patient obviously requires further evaluationstabilization/observation. This personal lines underwriter is very familiar with this patient from the previous admissions to [facility] psychiatric inpatient unit and ECT treatments. Patient was seen next to the nursing station, patient reported that overall she did like Seroquel which was started last night as an adjunct for her treatment resistant depression. Patient reported "I feel calmer." Patient expressed interest in TMS treatment, this personal lines underwriter gave a call to [facility], they are in the process of opening TMS program. But it will take couple weeks for the patient to get an appt. Patient was secretive, minimizing her symptoms, most keep asking about her discharge, said "I am wasting time here", this personal lines underwriter would like to emphasize the fact that patient does not work, patient feels outpatient program, patient was noncompliant with the treatment program/ECT treatment. As a result patient tried to commit suicide about a week ago prior to this admission. Patient still high risk, denied any intent or plan to kill herself during the interview. As per nursing staff report patient is anxious, pacing in the unit, secretive, guarded. pt is angry at her sister/self for this admission. So far patient tolerates medications well, no side effects observed or reported, aims 0, no EPS. Impression: Depressive disorder, severe, recurrent, psychosis cannot be excluded Generalized anxiety disorder Medication Change: Yes (Paxil increased, Seroquel increased) Medical Record Reviewed: Yes Consults ordered or reviewed: Patient is relatively healthy, no need was cleared by medical team in the emergency room. Mental Status Examination - Cognitive Function Orientation: Person, Place, Situation, Time Memory: Intact Attention: Poor Concentration: Poor Association: WNL Fund of Knowledge: WNL - Mood Mood: Depressed, Anxious - Affect Affect: Flat - Formal Thought Process Formal Thought Process: Paranoia (Cannot be excluded) - Suicidal Ideation Suicidal Ideation: No - Homicidal Ideation Homicidal Ideation: No Goal/Treatment Plan - Goal/Treatment Plan Need for Continued Stay: Remain at risks for inpatient hospitalization, Severe depression anxiety, Discharge may exacerbated symptoms, Severe functional impairment Progress Toward Problem(s) and Goals/Treatment Plan: Milieu/structure/supportive therapy SW consultation for discharge plan and social issues Med management paxil 40 mg daily for depression or anxiety Klonopin 0.5 twice a day as needed for anxiety Seroquel 75 mg at the nighttime as adjunct for depression As needed medication Family involvement Possible ECT treatment, but patient expressed no interest possible TMS at [facility] Family involvement Follow up on labs Will monitor closely Pt was educated about risk/benefits and alternatives of medications, coping strategies (safety plan, suicide prevention), relapse prevention, importance of follow up with psychiatrist and therapist, stay away from drugs/alcohol/smoking Estimated Date of D/C: 08/21/18
--- NOTE | 2018-08-17 11:57 | PCM.PYCHPN ---
Psychiatric Progress Note - Psychiatric Progress Note Patient seen today, length of contact: 30min Problems Identified/Issues Discussed: I reviewed recent notes and met with patient at bedside this morning. She appears groomed, coherent and unhappy. Alert and well-oriented to month, year, location and circumstances. Patient that mood remains depressed, largely unchanged since admission. Affect remains constricted. Denies AVH and feels that this admission is making her feel more hopeless. Presently she denies SI. Thus far she is tolerating her medications and denies any new discomfort or pain. Thus far patient has been in fair behavioral control though resentful about being hospitalized {patient is quite aware that she can place a 48 hour notice}. There were no behavioral issues over the weekend thus far. Diagnostic Results: Depressive disorder, severe, recurrent, psychosis cannot be excluded Generalized anxiety disorder Medication Change: Yes (Paxil increased, Seroquel increased) Medical Record Reviewed: Yes Mental Status Examination - Cognitive Function Orientation: Person, Place, Situation, Time Memory: Intact Attention: Poor Concentration: Poor Association: WNL Fund of Knowledge: WNL - Mood Mood: Depressed, Anxious - Affect Affect: Flat - Formal Thought Process Formal Thought Process: Paranoia (Cannot be excluded) - Suicidal Ideation Suicidal Ideation: No - Homicidal Ideation Homicidal Ideation: No Goal/Treatment Plan - Goal/Treatment Plan Need for Continued Stay: Remain at risks for inpatient hospitalization, Severe depression anxiety, Discharge may exacerbated symptoms, Severe functional impairment Progress Toward Problem(s) and Goals/Treatment Plan: * c/w current tx and plan * No new weekend lab results noted thus far * Vitals reviewed and noted below: Selected Entries 08/16/18 08/16/18 08/16/18 07:00 16:41 17:26 Temperature 97.3 F L Pulse Rate 76 86 95 H Respiratory 14 Rate Blood Pressure 98/64 L 88/55 L 123/70 Estimated Date of D/C: 08/21/18
--- NOTE | 2018-08-17 14:12 | CON ---
DATE: 08/17/2018 The patient refused medical evaluation. Merritt Buchanan MD [facility] # [id number]
--- NOTE | 2018-08-18 10:23 | PCM.PYCHPN ---
Psychiatric Progress Note - Psychiatric Progress Note Patient seen today, length of contact: 30min Problems Identified/Issues Discussed: I reviewed recent notes and met with patient at bedside again this morning. She still appears groomed, coherent and unhappy. Alert and well-oriented to month, year, location and circumstances. Patient indicates that her mood remains depressed, largely unchanged since admission. Feels that being hospitalized is not helping her and making her feel more helpless and hopeless. Presently she denies SI. Affect remains constricted. Thus far she is tolerating her medications and denies any new discomfort or pain Patient has been in fair behavioral control though resentful about being hospitalized {patient is quite aware that she can place a 48 hour notice}. There were no behavioral issues over the weekend thus far however she refused medical evaluation by Dr. Buchanan because of she didn't want to be billed for it~~in this respect she does appear future oriented. Diagnostic Results: Depressive disorder, severe, recurrent, psychosis cannot be excluded Generalized anxiety disorder Medication Change: Yes (Paxil increased, Seroquel increased) Medical Record Reviewed: Yes Mental Status Examination - Cognitive Function Orientation: Person, Place, Situation, Time Memory: Intact Attention: WNL Concentration: Poor Association: WNL Fund of Knowledge: WNL - Mood Mood: Depressed, Anxious - Affect Affect: Flat - Formal Thought Process Formal Thought Process: Paranoia (Cannot be excluded) - Suicidal Ideation Suicidal Ideation: No - Homicidal Ideation Homicidal Ideation: No Goal/Treatment Plan - Goal/Treatment Plan Need for Continued Stay: Remain at risks for inpatient hospitalization, Severe depression anxiety, Discharge may exacerbated symptoms, Severe functional impairment Progress Toward Problem(s) and Goals/Treatment Plan: * c/w current tx and plan * Appreciate f/u by Dr. Buchanan on 08/17/18~patient refused medical evaluation * No new weekend lab results noted * Vitals reviewed and noted below: Selected Entries 08/16/18 08/16/18 08/16/18 07:00 16:41 17:26 Temperature 97.3 F L Pulse Rate 76 86 95 H Respiratory 14 Rate Blood Pressure 98/64 L 88/55 L 123/70 08/17/18 16:20 Temperature Pulse Rate 80 Respiratory Rate Blood Pressure 110/65 Estimated Date of D/C: 08/21/18
--- NOTE | 2018-08-19 15:35 | PCM.PYCHPN ---
Psychiatric Progress Note - Psychiatric Progress Note Patient seen today, length of contact: 30min Patient Chief Complaint: "I think I am okay, tell me why you want my sister to be involved? we have some disagreements..." Problems Identified/Issues Discussed: Treatment options, ECT, trans-magnetic stimulation (TMS), medications risk/benefits/alternatives, suicide assessment/prevention. Medical Problems: See HPI Diagnostic Results: 08/12/18 14:05 08/12/18 14:05 Lab Results 08/13/18 07:40: RPR Nonreactive 08/13/18 07:40: TSH 3rd Generation 0.94 08/13/18 07:40: Fasting Glucose 101, Triglycerides 80, Cholesterol 261 H, LDL Cholesterol Direct 128, HDL Cholesterol 89 H 08/12/18 14:05: Alcohol, Quantitative < 10 08/12/18 14:05: Salicylates < 1 L, Acetaminophen < 10.0 L 08/12/18 14:05: Urine Opiates Screen Negative, Urine Methadone Screen Negative, Ur Barbiturates Screen Negative, Ur Phencyclidine Scrn Negative, Ur Amphetamines Screen Negative, U Benzodiazepines Scrn Negative, U Oth Cocaine Metabols Negative, U Cannabinoids Screen Negative 08/12/18 14:05: Sodium 138, Potassium 4.0, Chloride 103, Carbon Dioxide 26, Anion Gap 13, BUN 18, Creatinine 0.6 L, Est GFR ( Amer) > 60, Est GFR (Non-Af Amer) > 60, Random Glucose 107, Calcium 9.6, Total Bilirubin 0.6, AST 23, ALT 21, Alkaline Phosphatase 92, Total Protein 7.8, Albumin 4.4, Globulin 3.4, Albumin/Globulin Ratio 1.3 08/12/18 14:05: Urine Color Yellow, Urine Appearance Sl cloudy, Urine pH 6.0, Ur Specific [place] 1.025, Urine Protein Trace H, Urine Glucose (UA) Negative, Urine Ketones Negative, Urine Blood Trace-intact H, Urine Nitrate Negative, Urine Bilirubin Negative, Urine Urobilinogen 0.2, Ur Leukocyte Esterase Negative, Urine RBC 2 - 5 H, Urine WBC 0 - 2, Ur Epithelial Cells 4 - 5, Amorphous Sediment Few, Urine Bacteria Many, Hyaline Casts 0 - 2 08/12/18 14:05: WBC 7.2, RBC 4.98, Hgb 14.7, Hct 43.7, MCV 87.8, MCH 29.5, MCHC 33.6, RDW 12.8, Plt Count 343, MPV 9.2, Neut % (Auto) 71.0 H, Lymph % (Auto) 21.6 L, [place] % (Auto) 6.4 H, Eos % (Auto) 0.7 L, Baso % (Auto) 0.3, Lymph # (Auto) 1.6, [place] # (Auto) 0.5, Eos # (Auto) 0.1, Baso # (Auto) 0.02, Absolute Neuts (auto) 5.09 Vital Signs Temp Pulse Resp BP Pulse Ox 08/14/18 07:21 97.9 F 81 20 100/61 08/13/18 16:00 76 107/65 08/13/18 06:37 97.6 F 65 18 116/66 08/12/18 21:19 97.5 F L 84 18 145/79 99 08/12/18 17:43 86 18 153/80 H 98 08/12/18 15:14 88 18 155/88 H 99 08/12/18 13:47 98.0 F 96 H 18 146/86 98 DSM 5 Symptoms Update: shortly pt is a 63 year old female, with a history of treatment resistant depression, anxiety, two previous psychiatric admissions 2018, 2 admissions to this facility in April 2018 and May 2018, patient got 9 ECT treatments which patient considered to be not effective. Patient recently moved back to [place], currently lives with roommate, patient's sister brought patient for evaluation of worsening of depression, possible suicidal ideation, about a week ago patient tried to suffocate herself with the belt. Patient currently under care for [facility], compliance with the medications is questionable, present moment patient obviously requires further evaluationstabilization/observation. This remote mortgage underwriter is very familiar with this patient from the previous admissions to the psychiatric inpatient unit and ECT treatments. Patient was seen at the treatment team meeting room, patient reported that overall she did like Seroquel, denied any suicidal, patient reported "I feel calmer, I sleep better.." Patient expressed interest in TMS treatment, this remote mortgage underwriter gave a call to [facility], they are in the process of opening TMS program. But it will take couple weeks for the patient to get an appt. Patient still feels resistant to get information to this remote mortgage underwriter to speak to his sister saying "we have couple of disagreements", patient reported disagreement a bout baptism believes, patient reported being "baptism" but her sister "is not" discussed safety plan, pt was provided with HW of safety plan for tomorrow. pt still has limited insight, saying "I will not try to kill myself anymore", has no reasonable explanation why she is so convinced that it will not happened again. pt is angry at her sister/self for this admission. So far patient tolerates medications well, no side effects observed or reported, aims 0, no EPS. As per nursing report, patient keeps everything to herself, does not like to interact with others but attend groups, patient self isolating. Impression: Depressive disorder, severe, recurrent, psychosis cannot be excluded Generalized anxiety disorder Medication Change: Yes (Seroquel increased) Medical Record Reviewed: Yes Consults ordered or reviewed: Patient is relatively healthy, no need was cleared by medical team in the emergency room. Mental Status Examination - Cognitive Function Orientation: Person, Place, Situation, Time Memory: Intact Attention: WNL Concentration: Poor (Some improvement) Association: WNL Fund of Knowledge: WNL - Mood Mood: Depressed, Anxious - Affect Affect: Constricted (More reactive, mood congruent today) - Speech Speech: Appropriate - Formal Thought Process Formal Thought Process: Paranoia (Cannot be excluded) - Suicidal Ideation Suicidal Ideation: No - Homicidal Ideation Homicidal Ideation: No Goal/Treatment Plan - Goal/Treatment Plan Need for Continued Stay: Remain at risks for inpatient hospitalization, Severe depression anxiety, Discharge may exacerbated symptoms, Severe functional impairment Progress Toward Problem(s) and Goals/Treatment Plan: Milieu/structure/supportive therapy SW consultation for discharge plan and social issues Med management paxil 40 mg daily for depression or anxiety Klonopin 0.5 twice a day as needed for anxiety Seroquel 100 mg at the nighttime as adjunct for depression As needed medication Family involvement Possible ECT treatment, but patient expressed no interest possible TMS at [facility] Family involvement Follow up on labs Will monitor closely Pt was educated about risk/benefits and alternatives of medications, coping strategies (safety plan, suicide prevention), relapse prevention, importance of follow up with psychiatrist and therapist, stay away from drugs/alcohol/smoking Estimated Date of D/C: 08/21/18
[2018-08-20 07:30] VITALS: RESP 20
--- NOTE | 2018-08-20 14:59 | PCM.PYCHPN ---
Psychiatric Progress Note - Psychiatric Progress Note Patient seen today, length of contact: 30min Patient Chief Complaint: "I work on your assignment, my safety plan is: first I will call my sister Eloina, if he is not available, I will call suicide hotline, if it is busy I will call 911, or I will bring myself to the hospital" Problems Identified/Issues Discussed: Treatment options, ECT, trans-magnetic stimulation (TMS), medications risk/benefits/alternatives, suicide assessment/prevention. Medical Problems: See HPI Diagnostic Results: 08/12/18 14:05 08/12/18 14:05 Lab Results 08/13/18 07:40: RPR Nonreactive 08/13/18 07:40: TSH 3rd Generation 0.94 08/13/18 07:40: Fasting Glucose 101, Triglycerides 80, Cholesterol 261 H, LDL Cholesterol Direct 128, HDL Cholesterol 89 H 08/12/18 14:05: Alcohol, Quantitative < 10 08/12/18 14:05: Salicylates < 1 L, Acetaminophen < 10.0 L 08/12/18 14:05: Urine Opiates Screen Negative, Urine Methadone Screen Negative, Ur Barbiturates Screen Negative, Ur Phencyclidine Scrn Negative, Ur Amphetamines Screen Negative, U Benzodiazepines Scrn Negative, U Oth Cocaine Metabols Negative, U Cannabinoids Screen Negative 08/12/18 14:05: Sodium 138, Potassium 4.0, Chloride 103, Carbon Dioxide 26, Anion Gap 13, BUN 18, Creatinine 0.6 L, Est GFR ( Amer) > 60, Est GFR (Non-Af Amer) > 60, Random Glucose 107, Calcium 9.6, Total Bilirubin 0.6, AST 23, ALT 21, Alkaline Phosphatase 92, Total Protein 7.8, Albumin 4.4, Globulin 3.4, Albumin/Globulin Ratio 1.3 08/12/18 14:05: Urine Color Yellow, Urine Appearance Sl cloudy, Urine pH 6.0, Ur Specific [place] 1.025, Urine Protein Trace H, Urine Glucose (UA) Negative, Urine Ketones Negative, Urine Blood Trace-intact H, Urine Nitrate Negative, Urine Bilirubin Negative, Urine Urobilinogen 0.2, Ur Leukocyte Esterase Negative, Urine RBC 2 - 5 H, Urine WBC 0 - 2, Ur Epithelial Cells 4 - 5, Amorphous Sediment Few, Urine Bacteria Many, Hyaline Casts 0 - 2 08/12/18 14:05: WBC 7.2, RBC 4.98, Hgb 14.7, Hct 43.7, MCV 87.8, MCH 29.5, MCHC 33.6, RDW 12.8, Plt Count 343, MPV 9.2, Neut % (Auto) 71.0 H, Lymph % (Auto) 21.6 L, [place] % (Auto) 6.4 H, Eos % (Auto) 0.7 L, Baso % (Auto) 0.3, Lymph # (Auto) 1.6, [place] # (Auto) 0.5, Eos # (Auto) 0.1, Baso # (Auto) 0.02, Absolute Neuts (auto) 5.09 Vital Signs Temp Pulse Resp BP Pulse Ox 08/14/18 07:21 97.9 F 81 20 100/61 08/13/18 16:00 76 107/65 08/13/18 06:37 97.6 F 65 18 116/66 08/12/18 21:19 97.5 F L 84 18 145/79 99 08/12/18 17:43 86 18 153/80 H 98 08/12/18 15:14 88 18 155/88 H 99 08/12/18 13:47 98.0 F 96 H 18 146/86 98 DSM 5 Symptoms Update: shortly pt is a 63 year old female, with a history of treatment resistant depression, anxiety, two previous psychiatric admissions 2018, 2 admissions to this facility in April 2018 and May 2018, patient got 9 ECT treatments which patient considered to be not effective. Patient recently moved back to [place], currently lives with roommate, patient's sister brought patient for evaluation of worsening of depression, possible suicidal ideation, about a week ago patient tried to suffocate herself with the belt. Patient currently under care for [facility], compliance with the medications is questionable, present moment patient obviously requires further evaluationstabilization/observation. Patient was seen today next to the nursing station, hygiene is improving, patient's affect is more reactive. Patient worked on her safety plan, pt said that in case of suicidal ideations she will call her sister first, is not available she will call suicide hotline, if it is not available 911, or "I will bring myself back to the hospital", patient was advised to keep that safety plan written on her always. Patient still believes that she should not be admitted. Patient did not give a permission to talk to her sister still. Patient's sister is coming tomorrow, will try to discuss in case pt agreed. So far patient tolerates medications well, no side effects observed or reported, aims 0, no EPS. As per nursing report, patient keeps everything to herself, does not like to interact with others but attend groups, more visible in the unit. Impression: Depressive disorder, severe, recurrent, psychosis cannot be excluded Generalized anxiety disorder Medication Change: Yes (Paxil increased) Medical Record Reviewed: Yes Consults ordered or reviewed: Patient is relatively healthy, no need was cleared by medical team in the emergency room. Mental Status Examination - Cognitive Function Orientation: Person, Place, Situation, Time Memory: Intact Attention: WNL Concentration: Poor (Some improvement) Association: WNL Fund of Knowledge: WNL - Mood Mood: Depressed, Anxious - Affect Affect: Constricted (More reactive, mood congruent today) - Speech Speech: Appropriate - Formal Thought Process Formal Thought Process: Paranoia (Cannot be excluded) - Suicidal Ideation Suicidal Ideation: No - Homicidal Ideation Homicidal Ideation: No Goal/Treatment Plan - Goal/Treatment Plan Need for Continued Stay: Remain at risks for inpatient hospitalization, Severe depression anxiety, Discharge may exacerbated symptoms, Severe functional impairment Progress Toward Problem(s) and Goals/Treatment Plan: Milieu/structure/supportive therapy SW consultation for discharge plan and social issues Med management paxil 50 mg daily for depression or anxiety Klonopin 0.5 twice a day as needed for anxiety Seroquel 100 mg at the nighttime as adjunct for depression As needed medication Family involvement Possible ECT treatment, but patient expressed no interest possible [facility] at [facility] Family involvement Follow up on labs Will monitor closely Pt was educated about risk/benefits and alternatives of medications, coping strategies (safety plan, suicide prevention), relapse prevention, importance of follow up with psychiatrist and therapist, stay away from drugs/alcohol/smoking Estimated Date of D/C: 08/21/18
[2018-08-21 07:17] VITALS: BP 100/57; PULSE 83; TEMP 97.8
--- NOTE | 2018-08-21 16:24 | PCM.PYCHDC ---
Mental Status Examination - Mental Status Examination Orientation: Person, Place, Situation, Time Memory: Intact Mood: Neutral Affect: Constricted (But reactive, mood congruent) Speech: Appropriate Attention: WNL Concentration: WNL Association: WNL Fund of Knowledge: WNL Formal Thought Process: No Impairment Description of patient's judgement and insight: Pt has improved insight into mental and medical illness, pt was compliant with medications and unit rules and regulations, pt was attending group therapy sessions, was calm, cooperative, socially appropriate, no behavioral incidents, no agitation, no aggression. Pt denied v/a/t hallucinations, denied paranoid ideations, pt does not appear to be psychotic, and thought process is goal directed. pt adamantly denied thoughts of harming self or others denied intent or plan. Psychotic Thoughts and Behaviors: Pt denied v/a/t hallucinations, denied paranoid ideations, pt does not appear to be psychotic, and thought process is goal directed. Suicidal Ideation: No Current Homicidal Ideation?: No Plan: pt adamantly denied thoughts of harming self or others denied intent or plan. Discharge Plan - Discharge Note Reason for Hospitalization: Patient was admitted to the psychiatric inpatient unit for evaluation of worsening depression, possible suicidal ideation, about a week prior to this hospitalization patient tried to suffocate herself with a belt. Psychiatric History (includes Medical, Family, Personal Hx): See HPI Laboratory Data: 08/12/18 14:05 08/12/18 14:05 Lab Results 08/13/18 07:40: RPR Nonreactive 08/13/18 07:40: TSH 3rd Generation 0.94 08/13/18 07:40: Fasting Glucose 101, Triglycerides 80, Cholesterol 261 H, LDL Cholesterol Direct 128, HDL Cholesterol 89 H 08/12/18 14:05: Alcohol, Quantitative < 10 08/12/18 14:05: Salicylates < 1 L, Acetaminophen < 10.0 L 08/12/18 14:05: Urine Opiates Screen Negative, Urine Methadone Screen Negative, Ur Barbiturates Screen Negative, Ur Phencyclidine Scrn Negative, Ur Amphetamines Screen Negative, U Benzodiazepines Scrn Negative, U Oth Cocaine Metabols Ne gative, U Cannabinoids Screen Negative 08/12/18 14:05: Sodium 138, Potassium 4.0, Chloride 103, Carbon Dioxide 26, Anion Gap 13, BUN 18, Creatinine 0.6 L, Est GFR ( Amer) > 60, Est GFR (Non-Af Amer) > 60, Random Glucose 107, Calcium 9.6, Total Bilirubin 0.6, AST 23, ALT 21, Alkaline Phosphatase 92, Total Protein 7.8, Albumin 4.4, Globulin 3. 4, Albumin/Globulin Ratio 1.3 08/12/18 14:05: Urine Color Yellow, Urine Appearance Sl cloudy, Urine pH 6.0, Ur Specific [place] 1.025, Urine Protein Trace H, Urine Glucose (UA) Negative, Urine Ketones Negative, Urine Blood Trace-intact H, Urine Nitrate Negative, Urine Bilirubin Negative, Urine Urobilinogen 0.2, Ur Leukocyte Esterase Negative, Urine RBC 2 - 5 H, Urine WBC 0 - 2, Ur Epithelial Cells 4 - 5, Amorphous Sediment Few, Urine Bacteria Many, Hyaline Casts 0 - 2 08/12/18 14:05: WBC 7.2, RBC 4.98, Hgb 14.7, Hct 43.7, MCV 87.8, MCH 29.5, MCHC 33.6, RDW 12.8, Plt Count 343, MPV 9.2, Neut % (Auto) 71.0 H, Lymph % (Auto) 21.6 L, [place] % (Auto) 6.4 H, Eos % (Auto) 0.7 L, Baso % (Auto) 0.3, Lymph # (Auto) 1.6, [place] # (Auto) 0.5, Eos # (Auto) 0.1, Baso # (Auto) 0.02, Absolute Neuts (auto) 5.09 Vital Signs Temp Pulse Resp BP Pulse Ox 08/21/18 07:16 97.8 F 83 20 100/57 L 08/20/18 16:08 76 108/66 08/20/18 07:29 97.9 F 79 20 106/61 08/19/18 15:55 91 H 120/72 08/19/18 07:00 97.6 F 67 18 119/69 08/18/18 16:03 73 98/60 L 08/18/18 07:00 98 F 69 17 117/72 08/17/18 16:20 80 110/65 08/16/18 17:26 95 H 123/70 08/16/18 16:41 86 88/55 L 08/16/18 07:00 97.3 F L 76 14 98/64 L 08/15/18 16:00 77 104/60 08/15/18 07:26 97.9 F 69 20 120/65 08/14/18 16:00 71 111/63 08/14/18 07:21 97.9 F 81 20 100/61 08/13/18 16:00 76 107/65 08/13/18 06:37 97.6 F 65 18 116/66 08/12/18 21:19 97.5 F L 84 18 145/79 99 08/12/18 17:43 86 18 153/80 H 98 08/12/18 15:14 88 18 155/88 H 99 08/12/18 13:47 98.0 F 96 H 18 146/86 98 Consultations:: List each consultation separately and include: 1. Reason for request. 2. Findings. 3. Follow-up Consultations: Patient is relatively healthy, no need was cleared by medical team in the emergency room. Patient had episode of hypotension, medical team was called, patient was refused to be seen because pt had high copayment from the last admission. Summary of Hospital Course include:: 1. Description of specific treatment plan utilized for patients during their course of treatmen. 2. Summarize the time- course for resolution of acute symptoms and/or regressed behaviors. 3. Describe issues identified and worked on during hospitalization. 4. Describe medication utilized. 5. Describe medical problems identified and treated. 6. Reassessment of suicide risk Summary of Hospital Course: shortly pt is a 63 year old female, with a history of treatment resistant depression, anxiety, two previous psychiatric admissions 2018, 2 admissions to this facility in April 2018 and May 2018, patient got 9 ECT treatments which patient considered to be not effective. Patient recently moved back to [place], currently lives with roommate, patient's sister brought patient for evaluation of worsening of depression, possible suicidal ideation, about a week prior to this admission patient tried to suffocate herself with the belt. Patient currently under care for [facility], compliance with the medications is questionable, patient required further evaluationstabilization/observation. This film writer is very familiar with this patient from the previous admissions to the psychiatric inpatient unit and ECT treatments. At the time of admission patient presented with susceptible personal hygiene, seems to lost some weight, patient appears to be withdrawn, depressed, tearful, not forthcoming with information. Patient has good ADLs. Please see admission note for more detailed information. During this hospitalization patient refused to have ECT treatment, patient expressed interest to go for TMS treatment, this film writer provided patient with information and referral for TMS at [facility].at pres ent moment [facility] is not accepting any patient because program will be opened in about 10days. Patient was stabilized on the following medications: Paxil was maximized to 50 mg at the nighttime Klonopin was given as needed for anxiety Seroquel was initiated and titrated to 100 mg at the nighttime as an adjunct for major depressive disorder treatment resistant. Overall patient improved, was more social, gained some weight, patient contracted for safety, patient has safety plan, decision time patient refused to give this film writer permission to talk to her sister Eloina because "we have different visions of the situation" Patient agreed to be followed up at [facility] remberto tment program, appt is tomorrow. 08/21/2018 patient was seen with the treatment team meeting, this film writer discussed safety plan, patient said that she learned "to be more open to try some medication because right now I feel good" patient contracted for safety, reported in case of suicidal ideation she will call her sister, second option is to call suicide hotline, call 911 is a third option, lastly pt reported that she will bring herself to the hospital in case of SI. Discharge took more than 45 minutes of this film writer time. Overall pt improved significantly, pt's affect became brighter, pt was less depressed, has realistic future oriented plans, pt also does not appear to be psychotic, or anxious, pt was socially appropriate, no behavioral issues, pts insight improved as well and soon pt deemed to be ready for discharge. At the time of the discharge patient pose no imminent danger to self or others, will be following up at [facility] clinic, information about follow up appointment, time and address provided to the pt, (see SW note for more detailed information). It is a patient responsibility to follow up with outpatient clinic, PMD as well as specialists In case patient will need to obtain results of studies pending at discharge, patient was provided with contact information of Psychiatric Inpatient unit [phone] as well as Medical Record Department [phone], as well as [facility] team [phone]. Patient denied using drugs, denies alcohol consumption, denied smoking. pt was provided with prescriptions see medication reconciliation form Pt was educated about safety plan in case of worsening of symptoms or in case of suicidal or homicidal ideation call 911 or go to the nearest ER, also was educated to take meds as prescribed and stay away from drugs, pt verbalized understanding. 08/12/18 14:05 08/12/18 14:05 Lab Results 08/13/18 07:40: RPR Nonreactive 08/13/18 07:40: TSH 3rd Generation 0.94 08/13/18 07:40: Fasting Glucose 101, Triglycerides 80, Cholesterol 261 H, LDL Cholesterol Direct 128, HDL Cholesterol 89 H 08/12/18 14:05: Alcohol, Quantitative < 10 08/12/18 14:05: Salicylates < 1 L, Acetaminophen < 10.0 L 08/12/18 14:05: Urine Opiates Screen Negative, Urine Methadone Screen Negative, Ur Barbiturates Screen Negative, Ur Phencyclidine Scrn Negative, Ur Amphetamines Screen Negative, U Benzodiazepines Scrn Negative, U Oth Cocaine Metabols Negativ e, U Cannabinoids Screen Negative 08/12/18 14:05: Sodium 138, Potassium 4.0, Chloride 103, Carbon Dioxide 26, Anion Gap 13, BUN 18, Creatinine 0.6 L, Est GFR ( Amer) > 60, Est GFR (Non-Af Amer) > 60, Random Glucose 107, Calcium 9.6, Total Bilirubin 0.6, AST 23, ALT 21, Alkaline Phosphatase 92, Total Protein 7.8, Albumin 4.4, Globulin 3.4, Albumin/Globulin Ratio 1.3 08/12/18 14:05: Urine Color Yellow, Urine Appearance Sl cloudy, Urine pH 6.0, Ur Specific [place] 1.025, Urine Protein Trace H, Urine Glucose (UA) Negative, Urine Ketones Negative, Urine Blood Trace-intact H, Urine Nitrate Negative, Urine Bilirubin Negative, Urine Urobilinogen 0.2, Ur Leukocyte Esterase Negative, Urine RBC 2 - 5 H, Urine WBC 0 - 2, Ur Epithelial Cells 4 - 5, Amorphous Sediment Few, Urine Bacteria Many, Hyaline Casts 0 - 2 08/12/18 14:05: WBC 7.2, RBC 4.98, Hgb 14.7, Hct 43.7, MCV 87.8, MCH 29.5, MCHC 33.6, RDW 12.8, Plt Count 343, MPV 9.2, Neut % (Auto) 71.0 H, Lymph % (Auto) 21.6 L, Jewell % (Auto) 6.4 H, Eos % (Auto) 0.7 L, Baso % (Auto) 0.3, Lymph # (Auto) 1.6, Jewell # (Auto) 0.5, Eos # (Auto) 0.1, Baso # (Auto) 0.02, Absolute Neuts (auto) 5.09 Vital Signs Temp Pulse Resp BP Pulse Ox 08/13/18 06:37 97.6 F 65 18 116/66 08/12/18 21:19 97.5 F L 84 18 145/79 99 08/12/18 17:43 86 18 153/80 H 98 08/12/18 15:14 88 18 155/88 H 99 08/12/18 13:47 98.0 F 96 H 18 146/86 98 - Diagnosis (1) Anxiety Status: Chronic Priority: Medium (2) MDD (major depressive disorder) Status: Chronic Priority: High - Final Diagnosis (DSM 5) Condition upon Discharge: STABLE Disposition: HOME/ ROUTINE Follow-up Treatment Plan: [facility] day treatment program Prescriptions/Medication Reconciliation: clonazePAM [Klonopin] 0.5 mg PO DAILY #14 tab Paroxetine HCl [Paxil Cr] 50 mg PO HS #30 tab.er.24h QUEtiapine [Seroquel] 100 mg PO HS #14 tab - Tobacco Cessation Tobacco Use Status for the last 30 days: Non User Tobacco Use Treatment Practical Counseling Provided: No Tobacco Use Treatment FDA-Approved Cessation Medication Provided: No - Alcohol or Substance Abuse Does the patient have an Alcohol or Substance Abuse Disorder: No A prescription for an FDA-approved medication for alcohol and drug dependence was given to the patient at discharge: No If no,reason for not providing: Patient denied smoking/denied alcohol consumption
== END 2018-08-21 15:35 | disposition home or self-care (01) | DRG 885 ==
LOC: ED 13:03 → ERH 17:58 → PSYC 20:03
PROVIDERS: ADMIT Psychiatry & Neurology Psychiatry; ATTEND Psychiatry & Neurology Psychiatry
DX: F32.3 Major depressive disorder, single episode, severe with psychotic features (principal); F41.1 Generalized anxiety disorder; I44.7 Left bundle-branch block, unspecified; I45.81 Long QT syndrome; Z79.899 Other long term (current) drug therapy; Z81.8 Family history of other mental and behavioral disorders; Z90.49 Acquired absence of other specified parts of digestive tract; Z91.14 Patient's other noncompliance with medication regimen